=== PATIENT | male | born 1980 | race Caucasian/White ===

== ENCOUNTER 2024-10-02 11:29 | Outpatient (AMB) | payer OTHER, SELFPAY ==
--- NOTE | 2024-10-02 11:37 | A.OFFPC_ITS ---
Vital Signs 10/02/24 11:41 Height 6 ft 1 in Weight 239 lb BMI 31.5 BP 104/68 Blood Pressure Location Rt brachial Pulse 83 Pulse Source Pulse Oximeter Temp 97.3 F Pulse Oximetry (%) 95 Intake Visit Reasons: Fever, productive cough, congestion Intake Note: cough keeps getting worse still has all symptoms Allergies No Known Allergies Allergy (Verified 10/02/24 11:39) Physical exam (Primary Care) Vital Signs: Last Vital Signs Temp 97.3 F 10/02/24 11:41 Pulse 83 10/02/24 11:41 BP 104/68 10/02/24 11:41 Pulse Ox 95 10/02/24 11:41 BMI result Body Mass Index 31.5 Coding Level of Care Code New Pt Level 4 (84081) Complex EM visit Add On G2211 Diagnoses Upper respiratory tract infection J06.9 Assessment & Plan Assessment & Plan (1) Upper respiratory tract infection: Code(s): J06.9 - Acute upper respiratory infection, unspecified Plan: Antibiotics ordered. Increase fluid intake. Tylenol for aches and pains. If symptoms worsen, follow-up here for a recheck. k. Plan History of Present Illness The patient is a 44-year-old male presenting with cough, fever, dizziness, and congestion. He describes over a week of on and off flu-like symptoms that remain unresolved, with significant evening chills and body temperature fluctuations, coupled with breathing difficulties due to congestion. The patient has self-managed his symptoms using Tylenol, Advil, DayQuil, and NyQuil, without symptom abatement. Negative tests for Influenza and COVID-19 were conducted independently. He denies additional medical conditions or urination difficulties and is non-smoking, with no alcohol or substance use history impacting his current condition. The patient?s recent symptoms led to missing workdays, compounded by a family flu incidence involving his children, likely unrelated to his current condition. Social History - Employment: Works for a sports [employer] in [place]. - Family: Two children recently experienced flu; however, no familial illness was discussed. - Substance Use: Denies smoking, alcohol, and drug use. Review of Systems - Respiratory: Reports cough, congestion, and difficulty breathing. - General: Reports fever, chills, and dizziness. - Genitourinary: Denies any problems. Physical Exam General: Appearance normal, both eyes and all related structures Nutritional Appearance: Well nourished Orientation/consciousness: Patient oriented x3 Limitations: No limitations Head: Normal to inspection Neck: Normal visual inspection Chest: Normal palpation of entire chest wall Respiratory: Congested, hard to breathe, wheezing noted Neurology: Patient oriented x3 Results - Tests: Self-reported negative results for Influenza A, Influenza B, and COVID- 19. Plan The management plan for acute bronchitis includes prescribing Azithromycin to address bacterial elements, accompanied by Tylenol to control fevers and an inhaler to reduce wheezing. Recommendations include regular steam inhalation and Sudafed to manage congestion, paired with instructions to rest and hydrate adequately. Patient was informed and verbally consented to the use of an ambient scribe for clinic note documentation during this visit. Discussion Notes I discussed the likely diagnosis of acute bronchitis with the patient, emphasizing the need for antibiotic treatment with Azithromycin due to ongoing respiratory symptoms. I explained the importance of using Tylenol consistently every six hours for fever control, as well as the inhaler's role in easing respiratory strain from bronchial tightening. Non-pharmacological measures, including steam inhalation and the use of Sudafed, were advised to alleviate congestion concerns. The patient was informed of the necessity of rest and hydration to expedite recovery, and we agreed upon the outlined treatment protocol following the detailed discussion of risks and expected progression timelines. Patient Instructions - Take Azithromycin as prescribed. - Use Tylenol every six hours for fever control. - Follow inhaler usage instructions to help with breathing. - Perform regular steam inhalation and take Sudafed. - Ensure ample rest and increase fluid intake. - Contact medical help if symptoms worsen or do not improve. Medications: New albuterol sulfate 90 mcg/actuation 1 inh inhalation QID PRN 6.7 grams 1RF shortness of breath or wheezing azithromycin take 500 mg today (day 1), then 250 mg for 4 days (days 2-5) PO 6 tabs 0RF
[2024-10-02 11:41] VITALS: BP 104/68; PULSE 83; TEMP 36.3; O2SAT 95; BMI 31.5
--- OUTSIDE RECORDS SUMMARY | 2024-10-02 14:25 | XMS_ITS ---
Author Name [facility] Organization Unknown Problems Problem Status Onset Date Problem Type Date of Resoluti on Source Effusion of joint of left knee active 2023-01-23 ProblemAct ENS_AONECT Pain of left knee joint active 2023-01-23 ProblemAct E[facility]
--- OUTSIDE RECORDS SUMMARY | 2024-10-02 14:25 | XMS_ITS | Data Portability ---
Author Organization [place] [facility] [place] Address [address] [place] [address] Care Team Providers Care Assistant Superintendent Name Role Phone [facility] Primary Care Provide r Assessment Encounter Date Assessment Date Assessment LastModified by Organization Details LastModified Time 01/23/2023 01/23/2023 Roman woke with left knee pain without specific injury or trauma. Although he is active, he did not have any injury or trauma. He had no pain prior to waking up. His pain was more related to a tendinitis, but does have a small joint effusion. There is no redness or warmth. No joint line tenderness. Acute gout is in the differential, but somewhat atypical presentation. Ultrasound was used to evaluate the patellar tendon and quadriceps insertion. Joint effusion was noted but no obvious quadriceps rupture. He does have some medial joint space narrowing, but joint line pain did not reproduce typical pain. He was offered a prednisone taper in hopes of reducing inflammation and pain. The risk, benefits potential side effects were reviewed. He was given crutches with weightbearing as tolerated. He will follow-up in 1 week to assess his progress, sooner for any complications. If swelling gets worse, aspiration will be considered. [email or web address] Not available 01/23/2023 10:28:22 01/27/2023 01/27/2023 Roman has made improvement while taking his prednisone. He has made significant overall improvement but still has tightness and some discomfort. He will complete his prednisone taper. Prednisone is actually offering more relief than he thought. If he has recurrent knee effusion, aspiration and corticosteroid injection could be considered in addition to synovial fluid analysis to assess for gout. After discussion, he will follow-up after his trip to [place]. [email or web address] Not available 01/27/2023 16:57:41 Plan of Treatment Reminders Order Date Submit Date Provider Last Modified By Organization Details Last Modified Time Details Appointments None recorded. Lab None recorded. Referral None recorded. Procedures None recorded. Surgeries None recorded. Imaging XR, knee, 3 view 2022 023 [email or web address], [address], [place], [address], 13:16:06 Medication Orders prednisone 10 mg tablet 2022 023 [id number], [address], [place], [address], 10:21:46 Patient TargetsNo targets recorded. Patient Instructions Encounter Date Encounter Id Patient Instructions Last Modified By Organization Details Last Modified Time 01/23/2023 [id number] 3 views of the {{Left* Right}} knee were obtained in the {{[place]* Vinod} } office including AP, lateral (weightbearing), and sunrise were obtained in the [place] office. X-rays demonstrated normal bony mineralization mildly decreased medially. No evidence of acute injury or fracture. Findings: Normal knee x-ray X-ray interpretation by: Leif Selby PA-C [email or web address] Not available 01/23/2023 10:28:05 Reason for Referral None Reported. Problems Name Problem SNOMED Code Status Onset Date Resolution Date Notes Provider Name and Address Organization Details Recorded Time Effusion of joint of left knee 016765465042912 Active [address], [facility], [place], [address], [place] [facility] [place], P 3 10:20:50 Pain of left knee joint 121778748117476 Active [address], [facility], [place], [address], [place] [facility], [facility] 3 10:25:32 Problem Notes None recorded. Medical Equipment None Reported. Allergies No known drug allergies Medications Name Sig Start Date Stop Date Status Note LastModified by Organization Details LastModified Time prednisone 10 mg tablet PLEASE SEE ATTACHED FOR DETAILED DIRECTIONS active Not Available Not Available N ot Available valacyclovir 1 gram tablet TAKE 2 TABLETS BY MOUTH TWICE A DAY FOR 5 DAYS active Not Available Not Available No t Available Vitals Date Recorded Body height Body mass index (BMI) Body weight Provider Name and Address Organization Details Last Updated DateTime 01/23/2023 190.5 cm 30 kg/m2 502951.17 g Kristina Torres [facility] [place], P 01/23/2023 09:31:39 Date Recorded Body height Body mass index (BMI) Body weight Provider Name and Address Organization Details Last Updated DateTime 01/27/2023 190.5 cm 30 kg/m2 064263.17 g Vinod Cirilo [place] - [facility], P 01/27/2023 09:38:30 Social History Question Answer Notes LastModified by Organizat ion Details LastModified Time Tobacco Smoking Status Never Smoker Kristina Torres lisa, [facility] [place], P 01/23/2023 09:31:56 What Is Your Level Of Alcohol Consumption? None [email or web address] Information not available 01/23/2023 Do You Use Any Illicit Or Recreational Drugs? No [email or web address] Information not available 01/23/2023 Do You Or Have You Ever Used Any Other Forms Of Tobacco Or Nicotine? No [email or web address] Information not available 01/23/2023 Sex: Unknown Functional Status None recorded. Mental Status None recorded. Family History Nothing Reported. Medical History No medical history recorded. Past Encounters Encounter ID Performer Location Encounter Start Date Encounter Closed Date Diagnosis/Indication Diagnosis SNOMED-CT Code Diagnosis ICD10 Code Diagnosis Note [id number] MD SAMUEL Wilhelm [facility] [address] [place] [address], [address] [place] [address] 01/23/2023 09:20:22 01/23/2023 10:29:55 Pain of left knee joint 2372320946 01953 M25.562 Effusion o f joint of left knee 4066103514 55248 M25.462 [id number] [facility] [address] [place] [address] 01/27/2023 09:33:53 01/27/2023 10:08:30 Effusion of joint of left knee 2480130374 21967 M25.462 Health Concerns Section Related Observation LastModified by Organization Detai ls LastModified Time None Recorded Concern Status LastModified by Organization Details LastModified Time None Recorded Advance Directives Directive None Recorded Payers Encounter Date Sequence Insurance Name Policy Number Policy Carranza Covered Member ID Carranza Member ID Guarantor Name 01/23/2023 1 [employer] - CHOICE (POS II) [id number] Roman Marina [id number] Roman Marina 01/27/2023 1 [employer] - CHOICE (POS II) [id number] Roman Marina [id number] Roman Marina Notes Date Note Type Note Provider Name and Address Organization Details Recorded Time 01/23/2023 text/html Patient is a 42-year-old male who presents today with acute knee pain. He denies any injury or trauma to cause the onset of his symptoms. He woke on Monday with pain and swelling. Pain was severe and he cannot bend his knee. His knee was swollen. No fever or chills. No redness or warmth. LEIF SELBY PA-C [address], [place], [address], [place] [facility], [facility] 01/23/2023 10:28:47 01/27/2023 text/html Patient has been noting some improvement since his last visit. He is now able to bend his knee since Monday. He is still sore by the end of the day. He is still taking his prednisone. He is leaving for a trip to [place] and will be gone next week. [address], [place], [address], [place] [facility], [facility] 01/27/2023 16:58:05
--- OUTSIDE RECORDS SUMMARY | 2024-10-02 14:25 | XMS_ITS | Data Portability ---
Author Organization [place] - [facility], [facility] Address [address] [place] [address] Care Team Providers Care Screw Supervisor Name Role Phone CHERELLE SALGADO Primary Care Provider CHERELLE SALGADO Referring Provider Assessment Encounter Date Assessment Date Assessment LastModified by Organization Details LastModified Time 11/24/2016 11/24/2016 HPI, ROS and physical assessment completed with plan as indicated below. [email or web address] Not available 11/24/2016 11:16:10 Plan of Treatment Reminders Order Date Submit Date Provider Last Modified By Organization Details Last Modified Time Details Appointments None recorded. Lab TSH, serum or plasma 2016 017 [email or web address] [facility], [address] [place], [address], 7 10:41:37 CMP, serum or plasma 2016 017 [facility], [address] [place], [address], 7 10:41:37 CBC 2016 017 [email or web address] [facility], [address] [place], [address], 7 10:41:37 urinalysis , complete 2016 017 RUY [facility], [address], [place], [address], 7 08:27:53 Referral None recorded. Procedures None recorded. Surgeries None recorded. Imaging electrocar diogram 2015 016 In-Office Order, Internal Use Only DO Not Attach Compendium DO Not Attach Compendium, Do Not Delete/merge, [id number] 6 12:11:18 Medication Orders Ativan 1 mg tablet 2016 017 [id number], [address] [place], [address], 7 08:59:34 citalopram 10 mg tablet 2016 017 [id number], [address] [place], [address], 7 08:27:37 Ativan 1 mg tablet 2015 016 [id number], [address] [place], [address], 6 12:53:04 ergocalcif wei (vitamin D2) 1,250 mcg (50,000 unit) capsule 2015 016 [id number], [address] [place], [address], 7 13:18:44 Patient TargetsNo targets recorded. Patient Instructions Encounter Date Encounter Id Patient Instructions Last Modified By Organization Details Last Modified Time 10/19/2015 [id number] he is quite healthy will get regular exercise, rx for Vit D. recheck prn or 6 months Not available 10/19/2015 10:42:17 02/16/2016 [id number] initial EKG albeit incomplete has no definitive anginal evidence will repeat EKG to see if anything else presents itself, sinus rhythm with normal BP 130/80. Pt would benefit from further cardiac interrogation. Second EKG was complete and had no further adnl findings. Only V1 T wave inversion. no ST T wave abnl. will renew the Ativan and see him after cardiac assessment. Not available 02/16/2016 10:35:44 11/24/2016 [id number] anxiety disorder : care instructions RUY Not available 11/26/2016 08:59:17 Patient understands instructions and will seek medical attention if symptoms worsen as directed. [email or web address] Not available 11/24/2016 11:15:50 Reason for Referral None Reported. Results Created Date Observation Date Name Description Value Unit Range Abnormal Flag Note LastModifiedBy Organization Detail LastModifiedTime 02/16/20 16 elect rocar diogr am No observ ation record ed. Not Available 2015 10:19:10 02/16/20 16 elect rocar diogr am No observ ation record ed. Not Available 2015 10:35:44 Result Notes None recorded. Problems Name Problem SNOMED Code Status Onset Date Resolution Date Notes Provider Name and Address Organization Details Recorded Time Anxiety disorder 173282979 Active EDIE Ferrell [address], [place], [address] , [facility], [facility] 6 10:35:43 Generalized anxiety disorder 96925278 Active 2016 YANCI Dueñas [address], [place], [address] , [facility], [facility] 7 08:19:50 Problem Notes None recorded. Procedures Surgical History None recorded. Imaging Results Imaging Date Name Status LastModified by Organization Details LastModified Time 02/16/2016 electrocardiogram completed Informa tion not available 02/16/2016 10:19:10 02/16/2016 electrocardiogram completed Informa tion not available 02/16/2016 10:35:44 Procedure Notes None recorded. Medical Equipment None Reported. Allergies Allergen ID Allergen Name Allergen Category Reaction Reaction Severity Criticality Documentation Date Start Date Code Code System Note Provider Name and Address Organization Details Recorded Time 650556 Substance with sulfonami de structure and antibacte rial mechanism of action (substanc e) medicatio n rash moderate Not available 10/19/2015 [id number] SNOMED Olga Bagley [facility], [facility] 6 10:07:08 Medications Name Sig Start Date Stop Date Status Note LastModified by Organization Details LastModified Time citalopram 10 mg tablet Take 1 tablet every day by oral route. 2016 active Not Available Not Available Not Avai lable Ativan 1 mg tablet Take 1 tablet every day by oral route. 2016 active Not Available Not Available Not Avai lable ergocalcifer ol (vitamin D2) 1,250 mcg (50,000 unit) capsule Take 1 capsule every week by oral route. 11/22 completed Not Available Not Available Not Available Vitals Date Recorded Body height Respiratory rate Body weight Body mass index (BMI) Heart rate Systolic blood pressure Diastolic blood pressure Provider Name and Address Organization Details Last Updated DateTime 6 190.5 cm 16 /min 818165. 2451 g 28.7 kg/m2 60 /min 104 mm[Hg] 60 mm[Hg] Olga Bagley [facility], [facility] 6 10:10:08 Date Recorded Respiratory rate Body height Heart rate Body weight Body mass index (BMI) Systolic blood pressure Diastolic blood pressure Provider Name and Address Organization Details Last Updated DateTime 6 16 /min 190.5 cm 76 /min 837751. 88492 g 28.4 kg/m2 122 mm[Hg] 78 mm[Hg] Olga Bagley [facility], [facility] 6 10:43:34 Date Recorded Body mass index (BMI) Heart rate Body height Body temperature Respiratory rate Oxygen saturation Oxygen saturation in Arterial blood by Pulse oximetry Body weight Systolic blood pressure Diastolic blood pressure Provider Name and Address Organization Details Last Updated DateTime 6 28.2 kg/m2 66 /min 190.5 cm 97.4 [degF] 20 /min 97 % 97 % 868305. 60705 g 130 mm[Hg] 80 mm[Hg] Alanis Cary [facility], [facility] 6 09:56:42 Date Recorded Body height Respiratory rate Body weight Body mass index (BMI) Heart rate Systolic blood pressure Diastolic blood pressure Provider Name and Address Organization Details Last Updated DateTime 7 190.5 cm 16 /min 998340. 51 g 27.7 kg/m2 76 /min 108 mm[Hg] 82 mm[Hg] Olga Kevyn [facility], [facility] 7 13:18:18 Date Recorded Body height Body weight Body mass index (BMI) Heart rate Respiratory rate Oxygen saturation Oxygen saturation in Arterial blood by Pulse oximetry Systolic blood pressure Diastolic blood pressure Provider Name and Address Organization Details Last Updated DateTime 7 190.5 cm 026010. 22 g 27.8 kg/m2 70 /min 16 /min 97 % 97 % 134 mm[Hg] 80 mm[Hg] Yasmin Campoverde [facility], [facility] 7 08:12:08 Social History Question Answer Notes LastModified by Organizat ion Details LastModified Time Tobacco Smoking Status Never Smoker Olga gonzalez [facility], [facility] 10/19/2015 10:07:07 Do You Have An Advance Directive? No [email or web address] Information not available 02/16/2016 What Is Your Level Of Alcohol Consumption? Moderate Information not available 11/24/2016 How Much Tobacco Do You Chew? None [email or web address] Information not available 11/24/2016 Which Illicit Or Recreational Drugs Have You Used? N/a Information not available 11/24/2016 Education 12 Information no t available 11/24/2016 What Is Your Occupation? [employer] Information not available 11/24/2016 Marital Status [email or web address] Informati on not available 02/16/2016 How Much Tobacco Do You Smoke? No Information not available 11/24/2016 Sex: Unknown Functional Status Question Answer Note LastModified by Organization D etails LastModified Time What is your exercise level? Moderate [email or web address] Information not available 02/16/2016 Mental Status None recorded. Family History Relationship Description Onset Age of this Age Resolved Age Notes LastModified by Organization Details LastModified Time Father No current problems or disability [email or web address] Not available 11/06 08:13:27 Mother No current problems or disability [email or web address] Not available 11/06 08:13:27 Notes:none Medical History Condition Response Cancer (location) N Other N Gout N Thyroid Disease N Kidney Stones N Measles/Mumps N Emphysema/COPD N Sexually Transmitted Disease N Depression N Prostate Problems N Vascular Disease N Rash/Skin Condition N Amputation (location) N Parkinson's N Paralysis N Headaches/Migraines N Cardiac Pacemaker/defibrillator N Nerve Damage / Neuropathy N Arthritis N Sleep disorder/Insomnia N Heart disease / Heart Attack N Crohn's Disease N HIV/AIDS N Stroke/TIA N Colon Problems N High Cholesterol N Serious Injuries N Kidney Disease N Memory Loss/Alzheimer's N Gallbladder disease N High blood pressure N Congestive heart failure N Falls N Alcohol Overuse N Blood Thinner Treatment N Hormone Replacement N Nervous Breakdown N Dumont's Esophagus N Anemia N Urinary Problems N Colon Polyps N Gastritis N Hospitalizations (other than operations) N Back pain N Diabetes N Rheumatic Fever N Bleeding Disorder N Cardiac Arrhythmias /irregular heart rat e N Osteopenia/Osteoporosis N Anxiety/Stress N Asthma N Vision Problems N Erectile / Sexual Dysfunction N Ostomies (location) N Seizures N Jaundice N Sleep Apnea N Hepatitis N Cirrhosis N GERD/Ulcer N Chicken Pox N Allergies (other than meds) N Past Encounters Encounter ID Performer Location Encounter Start Date Encounter Closed Date Diagnosis/Indication Diagnosis SNOMED-CT Code Diagnosis ICD10 Code Diagnosis Note [id number] EDIE Ferrell [employer] [place] [address] [place] [address] 10/19/2015 09:48:03 10/19/2015 10:47:13 Vitamin D deficiency 92244497 E55.9 he prefers I go an rx for the Vit Dl Hyperlipidemia 41578455 E78.5 will adhere to a low fat diet this year and recheck in a year. [id number] [facility] [address] [place] [address] 11/17/2015 10:34:28 11/17/2015 11:25:51 Anxiety disorder 663747624 F41.9 pt has medication at home which addresses problem [id number] EDIE Ferrell [place] [address] [place] [address] 02/16/2016 09:42:14 02/16/2016 10:45:23 Chest pain 42347478 R07.9 Anxiety disorder 0558690 06 F41.9 it is possible he is having anxiety. [id number] YANCI Dueñas [facility] [place] [address] [place] [address] 11/24/2016 08:07:32 11/24/2016 08:48:39 Generalized anxiety disorder 55934348 F41.1 Patient here today for ongoing treatment of anxiety. Was originally identified with anxiety in February and prescribed ativan for which the patient states taking a couple of times per month. PHQ 9 score is 10 indicating moderate depressive symptoms. Discussed finding with patient and options for treatments . Explained SSRIs as an optimal treatment for anxiety/de pression with the goal of discontinu ing usp use of ativan once optimal therapy reached. Citalopram to start at 10 mg with follow up in two weeks and possible titration. Patient informed of initial possible side effects and the 6 to 8 week course required to reach optimal therapy. Will discuss the possibilit y of a behavioral referral at follow up. Labs ordered as indicated for evaluation and baseline. Health Concerns Section Related Observation LastModified by Organization Detai ls LastModified Time None Recorded Concern Status LastModified by Organization Details LastModified Time None Recorded Advance Directives Directive N: Payers Encounter Date Sequence Insurance Name Policy Number Policy Carranza Covered Member ID Carranza Member ID Guarantor Name 10/19/2015 1 [employer] - CHO[employer]US [id number] Chaseer Jordy Salas [id number] [facility] 11/17/2015 1 [employer] - CHOICE PLUS [id number] Ciprianoopher J Salas [id number] Christopher Salas 02/16/2016 1 [employer] CHO[employer]US [id number] Chaseer J Salas [id number] Christopher Salas 11/24/2016 1 [employer] CHO[employer]US [id number] Chaseer Jordy Salas [id number] Roman Godinezo Notes Date Note Type Note Provider Name and Address Organization Details Recorded Time 10/19/2015 text/html pt is here for review of labs, he has low Vit D and mildly elevated lipids, he is healthy vitals as noted are normal EDIE Ferrell [address], [place], [address], [facility], [facility] 10/19/2015 10:42:50 11/17/2015 text/html AnxietyReported bypatient.Reason for visit:exacerbation of chronic complaint Anxiety Type:episodic anxiety Quality:nervous;agit ated Severity:moderate 5/10 Onset/Timing:abrupt; 3 years ago Context:major life stressors;trouble at work Alleviating factors:medication Associated Symptoms:denies suicidal ideations;sleep disturbances [facility] 11/17/2015 11:21:42 02/16/2016 text/html Chest PainReport ed bypatient.Reason for visit:acute complaint Location:left arm Onset/Timin days ago Context:at rest;occurs with emotional stress Aggravating Factors:worse with stress/emotional upset Associated Symptoms:dizzinessNo maria a:EKG normal pt is here for C.P. first EKG lack 3 precordial leads, pt seems to be tolerating the delay well, seems anxious on presentation but pleasant and cooperative. V1 T wave is inverted. pt states his last PCP treated him with Ativan 1 mg, has been having stress anxiety problem for 3 yrs. He would like to see belt polisher. EDIE Ferrell [address], [place], [address], [facility], [facility] 02/16/2016 10:36:04 11/24/2016 text/html AnxietyReported bypatient.Reason for visit:exacerbation of chronic complaint Anxiety Type:generalized anxiety disorder; Symptoms have been ongoing greater than 6 months Quality:nervous;pent up;agitated;poor concentration Severity:moderate 5/10 Duration:intermitten t Onset/Timing:gradual ;7 months ago Context:major life stressors;trouble at work;relationship stress Alleviating factors:Ativan Aggravating factors:stress;work Associated Symptoms:denies suicidal ideations; no significant weight change; no shortness of breath; energy good; maintaining functionality;high irritability;depress ion Patient here today for ongoing treatment of anxiety. Was originally identified with anxiety in February and prescribed ativan for which the patient states taking a couple of times per month. States some increased feeling of anxiety over the last few months with both personal and work related factors for which he does not elaborate on with coaching. PHQ 9 score 10 and patient acknowledges often feeling down with some loss of interest in normal activities. YANCI Dueñas [address], [place], [address], [facility] - [facility] 11/24/2016 11:19:25
== END 2024-10-02 11:53 | disposition home or self-care (01) ==
LOC: HO.HMCSH 11:30
PROVIDERS: PCP Internal Medicine; Visit Provider Internal Medicine
DX: J06.9 Acute upper respiratory infection, unspecified (principal)

== ENCOUNTER 2024-11-27 10:00 | Outpatient (AMB) | payer OTHER, SELFPAY ==
[2024-11-27 10:05] VITALS: BP 140/90; PULSE 90; RESP 16; TEMP 36.4; O2SAT 99; BMI 30.7
--- NOTE | 2024-11-27 10:05 | A.OFFPC_ITS ---
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 Accompanied by: Self / Same As Patient Allergies No Known Allergies Allergy (Verified 11/27/24 10:26) Medication List - Last Reconciled 11/27/24 by Anette Crowe PA-C albuterol sulfate 90 mcg/actuation 1 inh inhalation QID PRN Tobacco use date assessed: 11/27/24 Dental Screening Dental Screen Date: 11/27/24 Did you have a dental visit in the last 12 months?: Yes Did you have a dental problem in the last 6 months where you did not have access to dental care?: No Was dental information given to patient?: Patient has dentist HPI hand tremors and numbness HPI Details The patient is a 44 year old male presenting with tremors, dizziness, jaundice, and chest muscle spasms. Over the past 10 to 14 days, he has experienced constant tremors and dizziness, often exacerbated by changing positions, notably transitioning to standing or exiting the shower, when weakness in the legs occurs. He also reports numbness affecting his extremities. The patient describes persistent spasmodic pain located in the chest, suggesting a muscular origin, and notes recent yellowing of his eyes for the past two weeks. The patient admits to periodic coughing episodes in the recent days, which induce a gag reflex, but he denies any mucus production. He has traveled recentl y for work to [place], where his symptoms persisted. It's noteworthy that the patient consumes alcohol regularly, correlating with a frequency of one to two drinks per day, which might contribute to his present symptomatology. Social history - Alcohol Consumption: The patient repor ts drinking one to two alcoholic drinks daily. - Living Situation: The patient lives al one. [facility] Medical History (Updated 11/27/24 @ 10:52 by Anette Crowe PA-C) Establishing care with new doctor, encounter for Occasional tremors Chest wall pain Scleral icterus Dizziness Family History Father No problems noted. Mother No problems noted. Social History Housing: Apartment Alcohol intake: current Alcohol intake frequency: 0-2 drinks per day Alcohol type: hard liquor Patient Tobacco Use Status: Never used Tobacco service: No Current occupational status: employed Cognitive needs: No Hearing needs: No Vision needs: No Questionnaire PHQ-9 Over the last 2 weeks, how often have you been bothered by any of the following problems? 1. Little interest or pleasure in doing things: not at all 2. Feeling down, depressed, or hopeless: not at all 3. Trouble falling or staying asleep, or sleeping too much: not at all 4. Feeling tired or having little energy: not at all 5. Poor appetite or overeating: not at all 6. Feeling bad about yourself - or that you are a failure or have let yourself or your family down: not at all 7. Trouble concentrating on things, such as reading the newspaper or watching television: not at all 8. Moving or speaking so slowly that other people could have noticed. Or the opposite - being so fidgety or restless that you have been moving around a lot more than usual: not at all 9. Thoughts that you would be better off or of hurting yourself in some way: not at all Total score: 0 Depression Screening Interpretation: Negative Depression Screening Done: Yes 57466 - PHQ-9 Billing: Yes Source: Developed by Drs. Darien Smith, Danisha Mandujano, Willi Cheema and colleagues, with an educational jessica from [employer]. Thrive Questionnaire Date Thrive assessed: 11/27/24 I am a: Patient What is your living situation today?: I have a steady place to live Within the past 12 months, did the food you bought not last and you didn't have the money to get more?: Never true Within the past 12 months, did you worry whether your food would run out before you got money to buy more?: Never true Do you have trouble paying for medicines?: No Do you have trouble getting transportation to medical appointments?: No Do you have trouble paying your heating and electricity bill?: No Do you have trouble taking care of your child, family member or friend?: No Do you have trouble with day-to-day activities such as bathing, preparing meals, shopping, managing finances, etc.?: No Are you currently unemployed and looking for a job?: No Are you interested in more education?: No Please select the resources that you would like help with: None THRIVE Score: 0 AUDIT C Alcohol Use Questionnaire (AUDIT-C) 1. How often do you have a drink containing alcohol?: 4 or more times a week 2. How many drinks containing alcohol do you have on a typical day when you are drinking?: 1 or 2 3. How often do you have six or more drinks on one occasion?: Never Total Score: 4 Score Reviewed/Action Taken: Yes CARIN-7 AMB Questionnaire CARIN-7 Date CARIN - 7 assessed: 11/27/24 Feeling nervous, anxious, or on edge: 0 = Not at all Not being able to stop or control worryin = Not at all Worrying too much about different things: 0 = Not at all Trouble relaxin = Not at all Being so restless that it is hard to sit still: 0 = Not at all Becoming easily annoyed or irritable: 0 = Not at all Feeling afraid as if something awful might happen: 0 = Not at all Total CARIN-7 score (0-4 normal; 5-9 mild; 10-14 moderate; 15-21 severe): 0 Source: Developed by Drs. Darien Smith, Danisha Mandujano, Willi Cheema and colleagues, with an educational jessica from [employer]. CARIN-7 Assessment Billing CARIN-7 Assessment Tool: CARIN-7 Assessment 41711 Review of Systems Const Details: - Neurological: Reports constant tremors, dizziness, and numbness of fingers and toes. - Eyes: Reports yellowing of the eyes. - Respiratory: Reports coughing without sputum production. - Musculoskeletal: Reports muscle spasms in the chest. - Gastrointestinal: Denies belly pain. - Integumentary: Reports redness on the top of the chest. Physical exam (Primary Care) Vital Signs: Last Vital Signs Temp 97.5 F 11/27/24 10:05 Pulse 90 11/27/24 10:05 Resp 16 11/27/24 10:05 BP 140/90 H 11/27/24 10:05 Pulse Ox 99 11/27/24 10:05 Oxygen Delivery Method Room Air 11/27/24 10:05 Care Plan Goal for BP management: 130/90 BMI result Body Mass Index 30.7 BMI Assessment/Plan discussion: High BMI High, discussed plan: lifestyle, weight reduction, dietary, physical activity and alcohol moderation Tobacco/Smoking Status: Tobacco use Status Tobacco use date assessed 11/27/24 11/27/24 10:09 Patient Tobacco Use Status Never used Tobacco 11/27/24 10:17 PHQ-9: PHQ-9 Score PHQ-9: Total score 0 11/27/24 10:09 Depression Screening Interpretation: Negative Thrive Assessment: Date of Thrive Assessment Date Thrive assessed 11/27/24 11/27/24 10:09 Const Other: Appearance: Alert. Oriented X3. No acute distress. Head: Normal external exam. Normocephalic. Atraumatic. Eyes: Pupils are equal, round, and reactive to light. Extraocular movements intact. Scleral icterus noted. Eyelids normal. Ears: External auditory canal normal. Tympanic membranes normal. Throat: Pharynx normal. Uvula midline. Moist mucous membranes. Neck: Normal inspection. Neck supple. Full range of motion. No adenopathy. Thyroid Normal. No meningeal signs. No neck mass noted. Cardiovascular: Normal heart rate and rhythm. Heart sound normal. No murmurs noted. Pulses normal throughout. Blood pressure is high. Respiratory: No respiratory distress. Painless inspiration. Breath sounds normal. No wheezes/rales/rhonchi noted. Chest nontender. No accessory muscle usage noted or decreased air movement noted. Patient reports coughing periodically. Abdomen: Soft and nontender. Bowel sounds normal in all 4 quadrants. No distention noted. No organomegaly noted. No visible injury noted. Back: No costovertebral angle tenderness. Full range of motion noted. Skin: Skin warm and dry. Normal skin color. Normal skin turgor. No rashes/lesions/lacerations noted. Top of chest is a little red. Extremities: No lower extremity edema. Extremities exhibit normal range of motion. Extremities nontender. Neuro: Oriented X 3. No motor deficit. No sensory deficit. Reflexes normal. Patient reports constant tremors, numbness in fingers and toes, and dizziness. Office Procedures EKG Details: EKG normal sinus rhythm with a ventricular rate of 100 beats per minute with nonspecific ST abnormalities no acute ischemic change are noted. [id number], Complete Coding Level of Care Code Est Pt Level 4 (55666) Complex EM visit Add On G2211 Diagnoses Dizziness R42 Scleral icterus R17 Chest wall pain R07.89 Occasional tremors R25.1 Establishing care with new doctor, encounter for Z76.89 CPT Codes EKG - CPT: 97273-[id number], Complete ([id number]) Additional Codes PHQ-9 - 56928 - PHQ-9 Billing: Yes ([id number]) CARIN-7 Assessment Billing - CARIN-7 Assessment Tool: CARIN-7 Assessment 96481 ([id number]) Assessment & Plan Assessment & Plan (1) Dizziness: Code(s): R42 - Dizziness and giddiness Category: Medical (2) Scleral icterus: Code(s): R17 - Unspecified jaundice Category: Medical (3) Chest wall pain: Code(s): R07.89 - Other chest pain Category: Medical (4) Occasional tremors: Code(s): R25.1 - Tremor, unspecified Category: Medical (5) Establishing care with new doctor, encounter for: Code(s): Z76.89 - Persons encountering health services in other specified circumstances Category: Medical Plan Plan Patient was informed and verbally consented to the use of an ambient scribe for clinic note documentation during this visit. 1. Upper Respiratory Infection The patient has an upper respiratory infection as demonstrated by the recent cough episodes. I recommend supportive care while prioritizing assessment of his concomitant symptoms. 2. Tremors The patient's tremors may relate to his alcohol use. It is necessary to evaluate his electrolytes and consider potential alcohol withdrawal risks, necessitating his expedited referral to the emergency department. 3. Dizziness Dizziness could stem from electrolyte imbalances or withdrawal; a comprehensive evaluation in an emergency setting is warranted, including liver function testing. 4. Jaundice Observations of jaundiced eyes suggest hepatic concern, necessitating a detailed hepatic assessment at the emergency department, considering potential chronic alcohol implications. 5. Chest Muscle Spasms Consider muscle spasms possibility as either related to coughing from the upper respiratory infection or a potential imbalance, requiring a thorough evaluation within the context of presenting symptoms. I discussed with the patient the need for immediate evaluation in the emergency department to address his constellation of symptoms, especially emphasizing the signs of jaundice and tremors, and the potential implications of chronic alcohol use. We reviewed the likely necessity for numerous diagnostic tests, including liver function tests, EKG, and possible imaging, to identify any severe underlying conditions. I advised him on the risks associated with potential alcohol withdrawal and the need for detoxification. I suggested an urgency for expedited care to mitigate potential complications, detailed the risks and outcomes of ignoring these symptoms, and the benefit of immediate medical intervention. Patient would like to go by private car refused ambulance. Patient understands the risks of not taking an ambulance. I discussed this case with MOHAN Cantor emergency department PA Orders: Orders Complete Blood Count Auto Diff Today Z00.00 - Encounter for general adult medical examination without abnormal findings Lipid Panel Today Z00.00 - Encounter for general adult medical examination without abnormal findings Liver Panel Today Z00.00 - Encounter for general adult medical examination without abnormal findings PSA,Total (Free>4and<10) Today Z. - Encounter for general adult medical examination without abnormal findings Vitamin B1 Today Z.00 - Encounter for general adult medical examination without abnormal findings Comprehensive [place]. Panel Fast Today Z. - Encounter for general adult medical examination without abnormal findings Erythrocyte Sedimentation Rate Today Z.00 - Encounter for general adult medical examination without abnormal findings C Reactive Protein Today Z00.00 - Encounter for general adult medical examination without abnormal findings Hemoglobin A1c Today Z00.00 - Encounter for general adult medical examination without abnormal findings Magnesium Today Z00.00 - Encounter for general adult medical examination without abnormal findings Vitamin A Today Z00.00 - Encounter for general adult medical examination without abnormal findings TSH reflex Free T4 Today Z00.00 - Encounter for general adult medical examination without abnormal findings Vitamin B12 and Folate Today Z00.00 - Encounter for general adult medical examination without abnormal findings Vitamin D 25-OH Total Today Z00.00 - Encounter for general adult medical examination without abnormal findings Zinc Today Z00.00 - Encounter for general adult medical examination without abnormal findings AMB EKG-In Office Today R42 - Dizziness and giddiness Patient Instructions: - Go directly to the emergency room today for immediate evaluation. - If you feel like you are going to pass out, insole tack puller hand or call for emergency help. - Follow up with our office after your ER visit for further coordination of care. - Stop consuming alcohol and consider discussing detoxification with ER staff.
--- OUTSIDE RECORDS SUMMARY | 2024-11-27 11:26 | XMS_ITS | Encounter Summary ---
Author Organization [facility] Address [address] [place] [address] Care Team Providers Care Real Estate Lawyer Name Role Phone Jeri Lam MD Primary Care Provider Unavail able Rudolph Barrett Primary Care Provider [phone] Ceferino Ross MD Primary Care Provider Encounter Details Date Type Department Care Team Description 02/27/2019 Research & Analytics Manager Report Medical Records [address] [place] [id number] Judit Arteaga NP Social History Tobacco Use Types Packs/Day Years Used Date Smoking Tobacco: Never Smokeless Tobacco: Never Alcohol Use Standard Drinks/Week Comments No 0 (1 standard drink = 0.6 oz pur e alcohol) Sex Assigned at Date Recorded Not on file Job Start Date Occupation Industry Not on file Not on file Not on file documented as of this encounter Plan of Treatment Not on file documented as of this encounter Visit Diagnoses Not on filedocumented in this encounter Care Teams Real Estate Lawyer Relationship Specialty Start Date End Date Jeri Lam MD PCP - General Internal Medicine 09/04/18 12/07/21 Rudolph Barrett [address] [place] [address] [id number] PCP - General Internal Medicine 12/08/21 05/04/22 Ceferino Ross MD [address] [place] [address] [id number] PCP - General Internal Medicine 05/05/22 documented as of this encounter
--- OUTSIDE RECORDS SUMMARY | 2024-11-27 11:26 | XMS_ITS | Data Portability ---
Author Organization [place] [facility] Avalos [facility] [place] Address [address] [place] [address] Care Team Providers Care Land Sales Agent Name Role Phone [facility] Primary Care Provide r Assessment Encounter [...] swelling gets worse, aspiration will be considered. [email or web address] Not available 01/23/2023 10:28:22 01/27/2023 01/27/2023 Roman [...] he will follow-up after his trip to [place]. [email or web address] Not available 01/27/2023 16:57:41 Plan of Treatment Reminders Order Date Submit Date Provider Last Modified By Organization Details Last Modified Time Details Appointments None recorded. Lab None recorded. Referral None recorded. Procedures None recorded. Surgeries None recorded. Imaging XR, knee, 3 view 2022 023 [email or web address] [facility], [address], [place], [address], 13:16:06 Medication Orders prednisone 10 mg tablet 2022 023 [id number], [address], [place], [address], 10:21:46 Patient TargetsNo targets recorded. Patient Instructions Encounter Date Encounter Id Patient Instructions Last Modified By Organization Details Last Modified Time 01/23/2023 [id number] views of the {{Left* Right}} knee were obtained in the {{[place]* Vinod} } office including AP, lateral (weightbearing), and sunrise were obtained in the [place] office. X-rays demonstrated normal bony mineralization mildly decreased medially. No evidence of acute injury or fracture. Findings: Normal knee x-ray X-ray interpretation by: Leif Selby PA-C [email or web address] Not available 01/23/2023 10:28:05 Reason for Referral None Reported. Problems Name Problem SNOMED Code Status Onset Date Resolution Date Notes Provider Name and Address Organization Details Recorded Time Effusion of joint of left knee 116811852886806 Active [address], [place], [address], [place] [facility], [facility] 3 10:20:50 Pain of left knee joint 486471995651403 Active [address], [place], [address], [place] [facility] 3 10:25:32 Problem Notes None recorded. [...] Updated DateTime 01/23/2023 190.5 cm 30 kg/m2 021024.17 g Kristina Torres [facility] 01/23/2023 09:31:39 Date Recorded Body height Body mass index (BMI) Body weight Provider Name and Address Organization Details Last Updated DateTime 01/27/2023 190.5 cm 30 kg/m2 286789.17 g Vinod Cirilo [place] [facility], P 01/27/2023 09:38:30 Social History Question Answer Notes LastModified by Organizat ion Details LastModified Time Tobacco Smoking Status Never Smoker Kristina Torres lisa, [facility], P 01/23/2023 09:31:56 What Is Your Level Of Alcohol Consumption? None [email or web address] Information not available 01/23/2023 Do You Use Any Illicit Or Recreational Drugs? No [email or web address] Information not available 01/23/2023 Do You Or Have You Ever Used Any Other Forms Of Tobacco Or Nicotine? No [email or web address] Information not available 01/23/2023 Sex: Unknown Functional Status None recorded. Mental Status None recorded. Family History Nothing Reported. Medical History No medical history recorded. Past Encounters Encounter ID Performer Location Encounter Start Date Encounter Closed Date Diagnosis/Indication Diagnosis SNOMED-CT Code Diagnosis ICD10 Code Diagnosis Note [id number] MD SAMUEL Wilhelm [facility] [address] [place] [address], [address] [place] [address] 01/23/2023 09:20:22 01/23/2023 10:29:55 Pain of left knee joint 7509152247 56803 M25.562 Effusion o f joint of left knee 2056149362 06946 M25.462 [id number] [facility] [address] [facility] [address] [place] [address] 01/27/2023 09:33:53 01/27/2023 10:08:30 Effusion of joint of left knee 0008663031 98733 M25.462 Health Concerns Section Related Observation LastModified by Organization Detai ls LastModified Time None Recorded Concern Status LastModified by Organization Details LastModified Time None Recorded Advance Directives Directive None Recorded Payers Encounter Date Sequence Insurance Name Policy Number Policy Carranza Covered Member ID Carranza Member ID Guarantor Name 01/23/2023 1 [employer] - CHOICE (POS II) [id number] Roman Marina [id number] Roman Marina 01/27/2023 1 [employer] - CHOICE (POS II) [id number] Roman Marina [id number] Roman Marina Notes Date Note Type [...] LEIF SELBY PA-C [address], [place], [address], [place] [facility] 01/23/2023 10:28:47 01/27/2023 text/html Patient has been noting some improvement since his last visit. He is now able to bend his knee since Monday. He is still sore by the end of the day. He is still taking his prednisone. He is leaving for a trip to [place] and will be gone next week. [address], [place], [address], [place] [facility] 01/27/2023 16:58:05
--- OUTSIDE RECORDS SUMMARY | 2024-11-27 11:26 | XMS_ITS | Data Portability ---
Author Organization [place] [facility], [facility] Address [address] [place] [address] Care Team Providers Care Manager Six Sigma Name Role Phone CHERELLE SALGADO Primary Care Provider CHERELLE SALGADO Referring Provider Assessment Encounter Date Assessment Date Assessment LastModified by Organization Details LastModified Time 11/24/2016 11/24/2016 HPI, ROS and physical assessment completed with plan as indicated below. [email or web address] Not available 11/24/2016 11:16:10 Plan of Treatment Reminders Order Date Submit Date Provider Last Modified By Organization Details Last Modified Time Details Appointments None recorded. Lab TSH, serum or plasma 2016 017 [facility], [address] [place], [address], 7 10:41:37 CMP, serum or plasma 2016 017 [facility], [address] [place], [address], 7 10:41:37 CBC 2016 017 [facility], [address] [place], [address], 7 10:41:37 urinalysis , complete 2016 017 [facility], [address], [place], [address], 7 08:27:53 Referral None recorded. Procedures None recorded. Surgeries None recorded. Imaging electrocar diogram 2015 016 In-Office Order, Internal Use Only DO Not Attach Compendium DO Not Attach Compendium, Do Not Delete/merge, [address] 6 12:11:18 Medication Orders Ativan 1 mg tablet 2016 017 [facility] #[id number], [address] [place], [address], 7 08:59:34 citalopram 10 mg tablet 2016 017 [id number], [address] [place], [address], 7 08:27:37 Ativan 1 mg tablet 2015 016 [facility] #[id number], [address] [place], [address], 6 12:53:04 ergocalcif wei (vitamin D2) 1,250 mcg (50,000 unit) capsule 2015 016 [facility] #5859, [address] [place], [address], 7 13:18:44 Patient TargetsNo targets recorded. Patient Instructions Encounter Date Encounter Id Patient Instructions Last Modified By Organization Details Last Modified Time 10/19/2015 [id number] he is quite healthy will get regular exercise, rx for Vit D. recheck prn or 6 months Not available 10/19/2015 10:42:17 02/16/2016 [id number] initial EKG albeit incomplete has no definitive [...] cardiac assessment. Not available 02/16/2016 10:35:44 11/24/2016 [id number] anxiety disorder : care instructions RUY Not available 11/26/2016 08:59:17 Patient understands instructions and will seek medical attention if symptoms worsen as directed. [email or web address] Not available 11/24/2016 11:15:50 Reason for Referral [...] Address Organization Details Recorded Time Anxiety disorder 679093961 Active EDIE Ferrell [address], [place], [address] , [facility], [facility] 6 10:35:43 Generalized anxiety disorder 86520159 Active 2016 YANCI Dueñas [address], [place], [address] , [facility], [facility] 7 08:19:50 Problem Notes None [...] Name and Address Organization Details Recorded Time 014055 Substance with sulfonami de structure and antibacte rial mechanism of action (substanc e) medicatio n rash moderate Not available 10/19/2015 66500 8003 SNOMED Olga Bagley [facility], [facility] 6 10:07:08 Medications Name Sig [...] Updated DateTime 6 190.5 cm 16 /min 878596. 2451 g 28.7 kg/m2 60 /min 104 mm[Hg] 60 mm[Hg] Olga Bagley [facility], [facility] 6 10:10:08 Date Recorded Respiratory rate Body height Heart rate Body weight Body mass index (BMI) Systolic blood pressure Diastolic blood pressure Provider Name and Address Organization Details Last Updated DateTime 6 16 /min 190.5 cm 76 /min 907390. 72583 g 28.4 kg/m2 122 mm[Hg] 78 mm[Hg] Olga Bagley [facility], [facility] 6 10:43:34 Date Recorded Body mass index (BMI) Heart rate Body height Body temperature Respiratory rate Oxygen saturation Oxygen saturation in Arterial blood by Pulse oximetry Body weight Systolic blood pressure Diastolic blood pressure Provider Name and Address Organization Details Last Updated DateTime 6 28.2 kg/m2 66 /min 190.5 cm 97.4 [degF] 20 /min 97 % 97 % 754733. 29457 g 130 mm[Hg] 80 mm[Hg] Alanis Cary [facility], [facility] 6 09:56:42 Date Recorded Body height Respiratory rate Body weight Body mass index (BMI) Heart rate Systolic blood pressure Diastolic blood pressure Provider Name and Address Organization Details Last Updated DateTime 7 190.5 cm 16 /min 111001. 51 g 27.7 kg/m2 76 /min 108 mm[Hg] 82 mm[Hg] Olga Kevyn [facility], [facility] 7 13:18:18 Date Recorded Body height Body weight Body mass index (BMI) Heart rate Respiratory rate Oxygen saturation Oxygen saturation in Arterial blood by Pulse oximetry Systolic blood pressure Diastolic blood pressure Provider Name and Address Organization Details Last Updated DateTime 7 190.5 cm 111201. 22 g 27.8 kg/m2 70 /min 16 /min 97 % 97 % 134 mm[Hg] 80 mm[Hg] Yasmin Campoverde [facility], [facility] 7 08:12:08 Social History Question Answer Notes LastModified by Organizat ion Details LastModified Time Tobacco Smoking Status Never Smoker Olga gonzalez [facility], [facility] 10/19/2015 10:07:07 Do You Have An Advance Directive? No [email or web address] Information not available 02/16/2016 What Is Your Level Of Alcohol Consumption? Moderate Information not available 11/24/2016 How Much Tobacco Do You Chew? None [email or web address] Information not available 11/24/2016 Which Illicit Or Recreational Drugs Have You Used? 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 No Information not available 11/24/2016 Sex: Unknown Functional Status Question Answer Note LastModified by Organization D etails LastModified Time What is your exercise level? Moderate [email or web address] Information not available 02/16/2016 Mental Status None [...] SNOMED-CT Code Diagnosis ICD10 Code Diagnosis Note [id number] EDIE Ferrell [employer] [address] [place] [address] 10/19/2015 09:48:03 10/19/2015 10:47:13 Vitamin D deficiency 36254634 E55.9 he prefers I go an rx for the Vit Dl Hyperlipidemia 07403822 E78.5 will adhere to a low fat diet this year and recheck in a year. [id number] Trav GANDHIZyncdKEVEN RICHAR[address]ONVIDONNA [address] [place] [address] 11/17/2015 10:34:28 11/17/2015 11:25:51 Anxiety disorder 838004751 F41.9 pt has medication at home which addresses problem [id number] EDIE Ferrell [address] [place] [address] 02/16/2016 09:42:14 02/16/2016 10:45:23 Chest pain 56409633 R07.9 Anxiety disorder 5332377 06 F41.9 it is possible he is having anxiety. [id number] YANCI Dueñas [facility] [address] [place] [address] 11/24/2016 08:07:32 11/24/2016 08:48:39 Generalized anxiety disorder 09276660 F41.1 Patient here today for ongoing treatment [...] pression with the goal of discontinu ing shelter use of ativan once optimal therapy reached. [...] Carranza Member ID Guarantor Name 10/19/2015 1 [facility] [id number] Roman Godinezo [id number] Roman Godinezo 11/17/2015 1 [facility] [id number] Chaseer Jordy Salas [id number] Christopher Salas 02/16/2016 1 [facility] [id number] Roman Spence Salas [id number] Ciprianoopher Salas 11/24/2016 1 [facility] [id number] Roman Spence Salas [id number] Roman Marina Notes Date Note Type Note Provider Name and Address Organization Details Recorded Time 10/19/2015 text/html pt is here for review of labs, he has low Vit D and mildly elevated lipids, he is healthy vitals as noted are normal EDIE Ferrell [address], [place], [address], [facility], [facility] 10/19/2015 10:42:50 11/17/2015 text/html AnxietyReported bypatient.Reason for visit:exacerbation of chronic complaint Anxiety Type:episodic anxiety Quality:nervous;agit ated Severity:moderate 5/10 Onset/Timing:abrupt; 3 years ago Context:major life stressors;trouble at work Alleviating factors:medication Associated Symptoms:denies suicidal ideations;sleep disturbances [facility] 11/17/2015 11:21:42 02/16/2016 text/html Chest [...] 3 yrs. He would like to see parallel computing software engineer. EDIE Ferrell [address], [place], [address], [facility], [facility] 02/16/2016 10:36:04 11/24/2016 text/html AnxietyReported [...] some loss of interest in normal activities. Afshan Alejandra, [facility] [address] [facility] [address], [place], [address], [facility] - [facility], [facility] 11/24/2016 11:19:25
--- OUTSIDE RECORDS SUMMARY | 2024-11-27 11:26 | XMS_ITS | Encounter Summary ---
Author Organization [facility] Address [address] [place] [address] Care Team Providers Care International Manager Name Role Phone Jeri Lam MD Primary Care Provider Rudolph Pereira Primary Care Provider [phone] Ceferino Ross MD Primary Care Provider Encounter Details Date Type Department Care Team Description 11/08/2018 Telephone Gastroenterology - [facility] [address] [facility] [address] [place] [address] Red Sánchez MD [address] [place] [address] [id number] Social History Tobacco Use Types Packs/Day Years Used Date Smoking Tobacco: Never Smokeless Tobacco: Never Alcohol Use Standard Drinks/Week Comments No 0 (1 standard drink = 0.6 oz pur e alcohol) Sex Assigned at Date Recorded Not on file Job Start Date Occupation Industry Not on file Not on file Not on file documented as of this encounter Miscellaneous Notes * Telephone Encounter - Flavia Olguin - 11/08/2018 7:43 PM EDT All attempts to reach patient to schedule GI consult have been exhausted. documented in this encounter Plan of Treatment Not on file documented as of this encounter Visit Diagnoses Not on filedocumented in this encounter Care Teams International Manager Relationship Specialty Start Date End Date Jeri Lam MD PCP - General Internal Medicine 09/04/18 12/07/21 Rudolph Barrett [address] [place] [address] PCP - General Internal Medicine 12/08/21 05/04/22 Ceferino Ross MD [address] [place] [address] PCP - General Internal Medicine 05/05/22 documented as of this encounter
--- OUTSIDE RECORDS SUMMARY | 2024-11-27 11:26 | XMS_ITS | Encounter Summary ---
Author Organization [facility] Address [address] [place] [address] Care Team Providers Care Plant Operations Worker Name Role Phone Jeri Lam MD Primary Care Provider Unavail able Rudolph Barrett Primary Care Provider [phone] Ceferino Ross MD Primary Care Provider Reason for Visit * Reason Onset Date Comments Error 04/09/2019 Encounter Details Date Type Department Care Team Description 04/09/2019 Telephone Adult Medicine [address] [address] Jeri Lam MD Error Social History Tobacco Use Types Packs/Day Years [...] encounter Miscellaneous Notes * Telephone Encounter - Jacqueline Rich - 04/09/2019 8:49 AM EDT Error documented in this encounter Plan of Treatment Not on file documented as of this encounter Visit Diagnoses Not on filedocumented in this encounter Care Teams Plant Operations Worker Relationship Specialty Start Date End Date Jeri Lam MD PCP - General Internal Medicine 09/04/18 12/07/21 Rudolph Barrett [address] [place] [address] PCP - General Internal Medicine 12/08/21 05/04/22 Ceferino Ross MD [address] [place] [address] PCP - General Internal Medicine 05/05/22 documented as of this encounter
== END 2024-11-27 11:39 | disposition home or self-care (01) ==
LOC: HO.HMCSH 10:00
PROVIDERS: PCP Internal Medicine; Visit Provider Physician Assistant Medical
DX: R42 Dizziness and giddiness (principal); R17 Unspecified jaundice; R07.89 Other chest pain; R25.1 Tremor, unspecified; Z76.89 Persons encountering health services in other specified circumstances

== ENCOUNTER → 2024-11-27 10:00 | Outpatient (BNVA) | payer OTHER, SELFPAY | PROVIDERS: PCP Internal Medicine; Visit Provider Physician Assistant Medical ==

== ENCOUNTER 2024-11-27 11:03 | Emergency (ER) | payer OTHER, SELFPAY ==
--- NOTE | ~2024-11-27 | XR_ITS ---
EXAMINATION: XR CHEST CLINICAL INFORMATION: left sided chest pain COMPARISON: None available. TECHNIQUE: 2 views of the chest were obtained. FINDINGS: The cardiac, hilar, and mediastinal contours are normal. Lungs are well inspired and clear bilaterally. There is no pneumothorax or pleural effusion. There is no focal osseous or soft tissue abnormality. XR/XR chest 2V IMPRESSION: No active pulmonary disease. Electronically signed by: Moses Montoya MD 11/27/2024 02:21 PM EDT
--- NOTE | ~2024-11-27 | US_ITS ---
EXAMINATION: US ABDOMEN LIMITED CLINICAL INFORMATION: Scleral icterus. COMPARISON: Limited to CT dated November 27, 2024. TECHNIQUE: Real-time ultrasound of the right upper quadrant abdomen using grayscale and color Doppler technique. Limited exam. FINDINGS: Liver measures 21 cm. Increased echotexture. There are several rounded anechoic lesions throughout the right hepatic lobe, the largest measures 1.3 cm. The main portal vein is patent with normal hepatopedal flow direction. No intrahepatic biliary ductal dilatation. Gallbladder is fluid-filled. No pericholecystic fluid collection or gallbladder wall thickening. Common bile duct measures 3 mm. No ascites. No hydronephrosis in the right kidney. No peripancreatic fluid collection. No main pancreatic ductal dilatation. US/US abdomen limited IMPRESSION: Hepatomegaly and steatosis. Multiple hepatic cystic lesions. No intrahepatic or extrahepatic biliary ductal dilatation. Electronically signed by: Jean Pierre Cox MD 11/27/2024 02:39 PM EDT
--- NOTE | ~2024-11-27 | CT_ITS ---
EXAMINATION: CT ABDOMEN AND PELVIS WITH CONTRAST CLINICAL INFORMATION: Scleral icterus. Elevated bilirubin and liver function test COMPARISON: None available. TECHNIQUE: Multidetector volumetric images were obtained from the superior aspect of the liver through the pubic symphysis following administration 85 mL of Omnipaque 350 intravenous contrast. Sagittal and coronal reformatted images were obtained on the technologist's workstation. Oral contrast: No This CT examination was performed using dose optimization techniques as appropriate, variously including the following: *Automated exposure control *Adjustment of mA and/or kV according to patient size (this includes techniques or standardized protocols for targeted exams where dose is matched to indication/reason for exam; i.e. extremities or head) *Use of iterative reconstruction technique. DLP: 762 mGy centimeter. FINDINGS: LUNG BASES: No acute airspace disease. LIVER, GALLBLADDER, AND BILIARY TREE: Liver measures 21 cm. Decreased enhancement pattern throughout the parenchyma. There are several, round, well-defined hypodensities throughout the right hepatic lobe, the largest measures 2.2 cm. The portal veins, hepatic veins and intrahepatic portion of the IVC are patent. No pericholecystic fluid collection or gallbladder wall thickening. No intrahepatic or extrahepatic biliary ductal dilatation PANCREAS: No focal mass. No peripancreatic fluid collection. No main pancreatic ductal dilatation. SPLEEN: 15 cm. No focal lesion. ADRENAL GLANDS: No nodular lesions. KIDNEYS AND URETERS: No hydronephrosis. No gross nephrolithiasis. Less than 1 cm hypodensity at the corticomedullary junction midportion, right kidney. BLADDER: Fluid-filled. GASTROINTESTINAL TRACT: Appendix is normal. Collapsed appearance of small bowel loops and others with gas and fluid-filled mildly prominent. Collapsed appearance of the left hemicolon. No intestinal obstruction pattern. No ascites. No pneumoperitoneum. No pneumatosis intestinalis. ABDOMINAL WALL: Small fat-containing umbilical and supraumbilical hernias. LYMPH NODES: Nonspecific mildly prominent in the retroperitoneum and mesentery. VASCULAR: No aneurysm or dissection, abdominal aorta. PELVIC VISCERA: Nonenlarged prostate gland. OSSEOUS STRUCTURES: Multilevel thoracolumbar spondylosis without acute fracture or listhesis. Syndesmophyte formation in the sacroiliac joints. Probably bony island, left acetabulum. CT/CT abdomen pelvis w IV con IMPRESSION: Hepatosplenomegaly and hepatic steatosis. Nonspecific cystic lesions, right hepatic lobe. No intrahepatic or extrahepatic biliary ductal dilatation. Probable mild enteritis. Small cystic lesion, right kidney. Fleischner guidelines were followed. Electronically signed by: Jean Pierre Cox MD 11/27/2024 02:20 PM EDT
--- NOTE | 2024-11-27 11:16 | ED.NEUROSD ---
HPI - Neuro Symptoms/Deficit General Chief Complaint: ETOH/Substance Use Stated Complaint: Dizziness, Numbness In Fingers and Toes Time Seen by Provider: 11/27/24 11:28 Source: patient and family (dad) Mode of arrival: ambulatory Limitations: no limitations History of Present Illness ED Provider: SAKSHI CHAN PA-C HPI Narrative: 44-year-old male with pmhx etoh abuse and anxiety presents to the ED today from PCP office for evaluation of tremors and paresthesias to b/l fingers and toes x10-14 days. Admits to yellow discoloration to both eyes x3 weeks. Denies any abdominal pain, nausea, vomiting, diarrhea, constipation. Reports 2-4 alcoholic beverages daily ranging from beer to hard liquor. Admits to attempting to cut back on etoh consumption over the last few weeks. Denies any history of withdrawals. Denies history of withdrawal seizures. Denies AH/VH/TH. Denies illicit substance use. Denies hx IVDU. He also endorses spasm sensation to left upper chest, primarily located along his pectoral muscle. this is not exacerbated with movements. discomfort does not radiate. Denies recent heavy lifting. Admits to recent flight to [employer] for work however left sided chest pain was present prior to flight. Denies any calf pain, shortness of breath, cough, hemoptysis, melena, hematuria. Patient initially presented to his primary care provider today for new patient appointment - he was noted to have scleral icterus and was advised to come to the ED for further evaluation. Related Data Previous Rx's ?Medication ?Instructions ?Recorded albuterol sulfate 90 mcg/actuation 1 inh inhalation QID PRN shortness 10/02/24 aerosol inhaler of breath or wheezing #6.7 grams diazepam 10 mg tablet See Rx Instructions .Route 11/27/24 .COMPLEX PRN alcohol withdrawal #10 tabs mecobalamin (vitamin B12) 1,000 1,000 mcg PO DAILY 30 days #30 tabs 11/27/24 mcg chewable tablet naltrexone 50 mg tablet 50 mg PO DAILY 30 days #30 tabs 11/27/24 thiamine HCl (vitamin B1) 100 mg 100 mg PO DAILY 5 days #5 caps 11/27/24 capsule Allergies Allergy/AdvReac Type Severity Reaction Status Date / Time No Known Allergies Allergy Verified 11/27/24 11:20 Review of Systems Review of Systems: Yes all other systems are reviewed and are negative [facility] Past Medical History Attestation statement: The following information was validated with the patient. Source: old records reviewed and nursing notes reviewed Medical History Establishing care with new doctor, encounter for Occasional tremors Chest wall pain Scleral icterus Dizziness Family History Family History Father No problems noted. Mother No problems noted. Social History Social History Housing: Apartment Alcohol intake: current Alcohol intake frequency: 3 or more drinks per day Alcohol type: hard liquor Patient Tobacco Use Status: Never used Tobacco service: No Current occupational status: employed Cognitive needs: No Hearing needs: No Vision needs: No Physical Exam Vital Signs: Vital Signs: Last Vital Signs Temp 98.5 F 11/27/24 17:53 Pulse 88 11/27/24 17:53 Resp 19 11/27/24 17:53 BP 136/93 H 11/27/24 17:53 Pulse Ox 94 11/27/24 17:53 O2 Del Method Room Air 11/27/24 17:53 BMI result Body Mass Index 29.0 Hypertensive, vitals otherwise WNL General: tremulous, restless Skin: Warm, dry, intact. No rashes or lesions. Head: mormocephalic, atraumatic. EENT: Hearing is intact b/l. Scleral icterus. PERRLA. EOM intact. Moist mucous membranes.? Neck: Supple without LAD Cardiac: Chest wall symmetric. RRR. No reproducible anterior chest wall tenderness to palpation. No palpable crepitus Lungs: Normal respiratory effort without accessory muscle use. CTA bilaterally. No rales, rhonchi, or wheezes.? Abdomen: Soft, nondistended, nontender to palpation, no rebound tenderness or guarding. Active bowel sounds x4. Ext: Upper and lower extremities atraumatic, without tenderness, deformity, swelling or erythema. Full ROM throughout Neuro: AOx3. Normal speech. Tremulous, no asterixis, no myoclonus, no tongue fasciculations. Strength 5/5 intact throughout. Sensation intact to light touch. NV intact distally. Ambulating with steady gait. Course Course Course Narrative: This is a Rapid Medical Exam performed in triage by Anna Mcclendon PA-C. Full HPI, ROS and PE to be performed by primary ED provider. 44 yo M presenting to the ED c/o dizziness, jaundice, tremors, numbness to fingers & toes x2 weeks & chest pain x1 week. Admits to drinking ETOH daily, 2-3 drinks, last drink yesterday 8PM. denies hx ETOH withdrawal. Admits to trying to cut back on ETOH over the past few weeks. denies ilicit drug use. denies abdominal pain PE: +scleral icterus, nontoxic appearing, no tongue fasciculations Plan: EKG, labs, UA Reevaluation(s) Reevaluation #1: ekg showing NSR w/ rate of 95 bpm, no acute ischemic changes or st elevations. cxr without infiltrate or consolidation. troponin wnl. ACS unlikely. negative covid, flu, rsv. lipase wnl. ammonia wnl. drug screen urine negative. ethanol and acetaminophen levels undetectable.CBC without leukocytosis or left shift. Chemistry without acute electrolyte abnormality requiring. Total bilirubin 4, direct bili 1.2, AST/ALT 267/237, alk phos 75. PT/INR wnl. Vitamin b12 around lower limits - will advise supplementation. Folate wnl. Abdominal ultrasound: Hepatomegaly and steatosis. Multiple hepatic cystic lesions. No intrahepatic or extrahepatic biliary ductal dilatation. CT a/p: Hepatosplenomegaly and hepatic steatosis. Nonspecific cystic lesions, right hepatic lobe. No intrahepatic or extrahepatic biliary ductal dilatation. Probable mild enteritis. Small cystic lesion, right kidney. - hep a/b/c panel pending - spoke w/ operations and maintenance specialist GI dr. longoria > likely alcoholic hepatitis. since bili and INR are reasonable, he is not recommending prednisolone at this time. advise patient to stop drinking etoh. no further intervention warranted from GI standpoint. Discussed all work up results with patient. discussed the importance of etoh cessation. he was treated w/ 2mg ativan for CIWA of 8. feels well. no longer tremulous. Patient declining inpatient detox. would like outpatient resources on how to stop drinking. I spoke with Kianna Dejesus (addiction recovery) - recommending 4 day taper of diazepam and naltrexone. she will follow up with patient outpatient at [facility]. referral provided. discussed w/ patient. he will contact their office tomorrow morning. advised patient NOT to consume etoh or opioid medication while on diazepam. both patient and father at bedside verbalize understanding. advised thiamine/b12/folate supplementation. Patient has remained stable throughout ED visit today. Discussed worrisome signs and symptoms and when to return to the ED. All questions answered at this time. patient's father will be driving him home today. Patient is agreeable with disposition and stable for discharge. Medications Administered Discontinued Medications Generic Name Dose Route Start Last Admin Trade Name Jc PRN Reason Stop Dose Admin Iohexol 100 ml 11/27/24 13:37 11/27/24 13:38 Iohexol 350 Mg/Ml 100 Ml Infus..Btl IV 11/27/24 13:38 85 ml ONCE ONE Administration Lorazepam 2 mg 11/27/24 13:04 11/27/24 13:14 Lorazepam 1 Mg Tablet PO 11/27/24 13:05 2 mg ONCE ONE Administration Medical Decision Making Medical Decision Making [facility] Narrative: 44-year-old male with pmhx etoh abuse and anxiety presents to the ED today from PCP office for evaluation of tremors and paresthesias to b/l fingers and toes x10-14 days. Hypertensive to 153/106, vitals are otherwise WNL. He is tremulous, anxious appearing. No asterixis, myoclonus or tongue fasciculations. Ambulating with steady gait. Abdomen is soft, nondistended, nontender to palpation, no rebound tenderness or guarding. Active bowel sounds x4. Differential diagnosis includes anemia, electrolyte abnormality, dehydration, ETOH intoxication, ETOH withdrawal, vitamin deficiency, cholelithiasis, cholecystitis, liver v pancreas mass, biliary obstruction, orthostatic hypotension Plan for labs, ekg, cxr, abdominal US and CT, ciks Differential Diagnosis Differential Diagnoses: The differential diagnosis associated with the presentation includes as above. Admission/Observation Consideration of admission/observation: Escalation of care including admission/observation considered Consult Healthcare Provider Management of the patient was discussed with: Counter Tender gi - dr. longoria addiction med - hollie dejesus Lab Data [facility] Lab Attestation statement: I reviewed the patient's lab results. as above. 11/27/24 11:29 11/27/24 11:29 Labs: Lab Results 11/27/24 11/27/24 11/27/24 Range/Units 11:29 13:05 16:00 WBC 8.6 (4.8-10.8) X10*3/uL RBC 4.78 (4.60-5.80) X10*6/uL Hgb 16.0 (14.0-18.0) g/dl Hct 42.8 (42.0-52.0) % MCV 89.5 (80.0-98.0) fL MCH 33.5 H (27.0-33.0) pg MCHC 37.4 H (31.0-36.0) g/dl RDW 12.9 (11.0-16.0) % Plt Count 144 L (160-400) X10*3/uL MPV 8.9 L (9.4-12.4) fL Immature Gran % (Auto) 0.3 (0.0-0.4) % Neut % (Auto) 83.2 H (45-73) % Lymph % (Auto) 8.9 L (20-40) % [place] % (Auto) 6.7 (2-11) % Eos % (Auto) 0.3 (0-4) % Baso % (Auto) 0.6 (0-2) % Lymph # (Auto) 0.8 L (1.2-4.9) X10*3/uL [place] # (Auto) 0.6 (0.1-1.2) X10*3/uL Eos # (Auto) 0.0 (0.0-0.4) X10*3/uL Baso # (Auto) 0.1 (0.0-0.2) X10*3/uL Abs Immat Gran (auto) 0.03 (0.00-0.03) X10*3/uL Absolute Neuts (auto) 7.2 (2.0-8.3) x10*3/uL Absolute Nucleated RBC 0.000 (0.0-0.012) X10*3/uL Nucleated RBC % (auto) 0.0 (0.0-0.2) /100WBC PT 11.9 (10.9-12.4) SEC INR 1.0 (0.9-1.1) Sodium 137 (135-145) mmol/L Potassium 3.5 (3.3-5.1) mmol/L Chloride 103 (96-108) mmol/L Carbon Dioxide 24 (22-29) mmol/L Anion Gap 14 (12-20) BUN 11 (9-16) mg/dL Creatinine 0.80 (0.5-1.4) mg/dL Estim Creat Clear Calc 154.7 Estimated GFR > 60 Random Glucose 94 (60-115) mg/dL Calcium 10.0 (8.4-10.2) mg/dL Magnesium 2.0 (1.6-2.6) mg/dL Total Bilirubin 4.0 H (0.0-1.0) mg/dL Direct Bilirubin 1.2 H (0.0-0.5) mg/dL AST 267 H (5-37) U/L ALT 237 H (0-40) U/L Alkaline Phosphatase 75 (39-117) U/L Ammonia 46 (13-55) umol/L Troponin I High Sens 3.0 (<3.5-35.0) ng/L Total Protein 8.2 H (6.5-8.0) g/dL Albumin 5.0 (3.5-5.0) g/dL Lipase 31 (8-78) U/L Vitamin B12 252 (200-900) pg/mL Folate 14.5 (> or = 4.0) ng/mL Urine Opiates Screen (Not Detect) Ur Buprenorphine Scrn (Not Detect) ng/mL Ur Oxycodone Screen (Not Detect) ng/mL Urine Methadone Screen (Not Detect) ng/mL Urine Fentanyl Screen (Not Detect) Acetaminophen < 3 (<30) mcg/mL Ur Barbiturates Screen (Not Detect) Ur Phencyclidine Scrn (Not Detect) Ur Amphetamines Screen (Not Detect) U Benzodiazepines Scrn (Not Detect) Urine Cocaine Screen (Not Detect) U Marijuana (THC) Screen (Not Detect) Ethyl Alcohol < 10 mg/dL Influenza Type A (PCR) NEGATIVE (Negative) Influenza Type B (PCR) NEGATIVE (Negative) RSV RNA Qual (PCR) NEGATIVE (Negative) SARS-CoV-2 RNA (RT-PCR) NEGATIVE (Negative) 11/27/24 Range/Units 16:06 WBC (4.8-10.8) X10*3/uL RBC (4.60-5.80) X10*6/uL Hgb (14.0-18.0) g/dl Hct (42.0-52.0) % MCV (80.0-98.0) fL MCH (27.0-33.0) pg MCHC (31.0-36.0) g/dl RDW (11.0-16.0) % Plt Count (160-400) X10*3/uL MPV (9.4-12.4) fL Immature Gran % (Auto) (0.0-0.4) % Neut % (Auto) (45-73) % Lymph % (Auto) (20-40) % [place] % (Auto) (2-11) % Eos % (Auto) (0-4) % Baso % (Auto) (0-2) % Lymph # (Auto) (1.2-4.9) X10*3/uL [place] # (Auto) (0.1-1.2) X10*3/uL Eos # (Auto) (0.0-0.4) X10*3/uL Baso # (Auto) (0.0-0.2) X10*3/uL Abs Immat Gran (auto) (0.00-0.03) X10*3/uL Absolute Neuts (auto) (2.0-8.3) x10*3/uL Absolute Nucleated RBC (0.0-0.012) X10*3/uL Nucleated RBC % (auto) (0.0-0.2) /100WBC PT (10.9-12.4) SEC INR (0.9-1.1) Sodium (135-145) mmol/L Potassium (3.3-5.1) mmol/L Chloride (96-108) mmol/L Carbon Dioxide (22-29) mmol/L Anion Gap (12-20) BUN (9-16) mg/dL Creatinine (0.5-1.4) mg/dL Estim Creat Clear Calc Estimated GFR Random Glucose (60-115) mg/dL Calcium (8.4-10.2) mg/dL Magnesium (1.6-2.6) mg/dL Total Bilirubin (0.0-1.0) mg/dL Direct Bilirubin (0.0-0.5) mg/dL AST (5-37) U/L ALT (0-40) U/L Alkaline Phosphatase (39-117) U/L Ammonia (13-55) umol/L Troponin I High Sens (<3.5-35.0) ng/L Total Protein (6.5-8.0) g/dL Albumin (3.5-5.0) g/dL Lipase (8-78) U/L Vitamin B12 (200-900) pg/mL Folate (> or = 4.0) ng/mL Urine Opiates Screen Not Detected (Not Detect) Ur Buprenorphine Scrn Not Detected (Not Detect) ng/mL Ur Oxycodone Screen Not Detected (Not Detect) ng/mL Urine Methadone Screen Not Detected (Not Detect) ng/mL Urine Fentanyl Screen Not Detected (Not Detect) Acetaminophen (<30) mcg/mL Ur Barbiturates Screen Not Detected (Not Detect) Ur Phencyclidine Scrn Not Detected (Not Detect) Ur Amphetamines Screen Not Detected (Not Detect) U Benzodiazepines Scrn Not Detected (Not Detect) Urine Cocaine Screen Not Detected (Not Detect) U Marijuana (THC) Screen Not Detected (Not Detect) Ethyl Alcohol mg/dL Influenza Type A (PCR) (Negative) Influenza Type B (PCR) (Negative) RSV RNA Qual (PCR) (Negative) SARS-CoV-2 RNA (RT-PCR) (Negative) Independent Interpretation I performed an independent interpretation of an: EKG, Ultrasound and CT Scan Interpretation: ekg showing nsr w/ rate 95 bpm, no acute ischemic changes or st elevations ruq us w/o gallstones ct a/p without cbd dilation Radiology Impression Discussion of test interpretation with radiology: I have reviewed the radiologist's reading. Radiologist Impression: Procedure(s): CT abdomen pelvis w IV con Accession Number(s): [id number] cc: Sakshi Chan; Jose Edmondson MD~ Report Number: [id number]: Total DLP = 762.00 mGy-cm EXAMINATION: CT ABDOMEN AND PELVIS WITH CONTRAST CLINICAL INFORMATION: Scleral icterus. Elevated bilirubin and liver function test COMPARISON: None available. TECHNIQUE: Multidetector volumetric images were obtained from the superior aspect of the liver through the pubic symphysis following administration 85 mL of Omnipaque 350 intravenous contrast. Sagittal and coronal reformatted images were obtained on the technologist's workstation. Oral contrast: No This CT examination was performed using dose optimization techniques as appropriate, variously including the following: *Automated exposure control *Adjustment of mA and/or kV according to patient size (this includes techniques or standardized protocols for targeted exams where dose is matched to indication/reason for exam; i.e. extremities or head) *Use of iterative reconstruction technique. DLP: 762 mGy centimeter. FINDINGS: LUNG BASES: No acute airspace disease. LIVER, GALLBLADDER, AND BILIARY TREE: Liver measures 21 cm. Decreased enhancement pattern throughout the parenchyma. There are several, round, well-defined hypodensities throughout the right hepatic lobe, the largest measures 2.2 cm. The portal veins, hepatic veins and intrahepatic portion of the IVC are patent. No pericholecystic fluid collection or gallbladder wall thickening. No intrahepatic or extrahepatic biliary ductal dilatation PANCREAS: No focal mass. No peripancreatic fluid collection. No main pancreatic ductal dilatation. SPLEEN: 15 cm. No focal lesion. ADRENAL GLANDS: No nodular lesions. KIDNEYS AND URETERS: No hydronephrosis. No gross nephrolithiasis. Less than 1 cm hypodensity at the corticomedullary junction midportion, right kidney. BLADDER: Fluid-filled. GASTROINTESTINAL TRACT: Appendix is normal. Collapsed appearance of small bowel loops and others with gas and fluid-filled mildly prominent. Collapsed appearance of the left hemicolon. No intestinal obstruction pattern. No ascites. No pneumoperitoneum. No pneumatosis intestinalis. ABDOMINAL WALL: Small fat-containing umbilical and supraumbilical hernias. LYMPH NODES: Nonspecific mildly prominent in the retroperitoneum and mesentery. VASCULAR: No aneurysm or dissection, abdominal aorta. PELVIC VISCERA: Nonenlarged prostate gland. OSSEOUS STRUCTURES: Multilevel thoracolumbar spondylosis without acute fracture or listhesis. Syndesmophyte formation in the sacroiliac joints. Probably bony island, left acetabulum. CT/CT abdomen pelvis w IV con IMPRESSION: Hepatosplenomegaly and hepatic steatosis. Nonspecific cystic lesions, right hepatic lobe. No intrahepatic or extrahepatic biliary ductal dilatation. Probable mild enteritis. Small cystic lesion, right kidney. Fleischner guidelines were followed. Electronically signed by: Jean Peirre Cox MD 11/27/2024 02:20 PM EDT Procedure(s): US abdomen limited Accession Number(s): [id number] cc: Sakshi Chan; Jose Edmondson MD~ EXAMINATION: US ABDOMEN LIMITED CLINICAL INFORMATION: Scleral icterus. COMPARISON: Limited to CT dated November 27, 2024. TECHNIQUE: Real-time ultrasound of the right upper quadrant abdomen using grayscale and color Doppler technique. Limited exam. FINDINGS: Liver measures 21 cm. Increased echotexture. There are several rounded anechoic lesions throughout the right hepatic lobe, the largest measures 1.3 cm. The main portal vein is patent with normal hepatopedal flow direction. No intrahepatic biliary ductal dilatation. Gallbladder is fluid-filled. No pericholecystic fluid collection or gallbladder wall thickening. Common bile duct measures 3 mm. No ascites. No hydronephrosis in the right kidney. No peripancreatic fluid collection. No main pancreatic ductal dilatation. US/US abdomen limited IMPRESSION: Hepatomegaly and steatosis. Multiple hepatic cystic lesions. No intrahepatic or extrahepatic biliary ductal dilatation. Electronically signed by: Jean Pierre Cox MD 11/27/2024 02:39 PM EDT RP Procedure(s): XR chest 2V Accession Number(s): [id number] cc: Sakshi Chan; Jose Edmondson MD~ EXAMINATION: XR CHEST CLINICAL INFORMATION: left sided chest pain COMPARISON: None available. TECHNIQUE: 2 views of the chest were obtained. FINDINGS: The cardiac, hilar, and mediastinal contours are normal. Lungs are well inspired and clear bilaterally. There is no pneumothorax or pleural effusion. There is no focal osseous or soft tissue abnormality. XR/XR chest 2V IMPRESSION: No active pulmonary disease. Electronically signed by: Moses Montoya MD 11/27/2024 02:21 PM EDT Independent Historian Clinical information obtained from an independent historian. History obtained from or confirmed by: Parent (dad) External Record Review External record reviewed: Inpatient record Prescription Management I considered prescription management with: Other (naltrexone, diazepam, folate, b12, thiamine) Chronic Conditions Patient?s care impacted by: Other (etoh abuse) Social Determinants Patient?s care significantly limited by Social Determinants of Health including: Alcoholism and drug addiction in family and Other Social Determinant of Health Critical Care Time Critical Care Time Critical Care Time: No Discharge Plan Discharge Clinical Impression: Alcoholic hepatitis, Paresthesias, Alcohol withdrawal Patient Disposition: Home, Self-Care Instructions: Thiamine (By mouth), Folic Acid (By mouth), Liver Disease Diet (DC), Vitamin B12 Deficiency (ED), Alcoholic Hepatitis (ED) Additional Instructions: As discussed, your blood work shows elevated liver enzymes and bilirubin concerning or an alcoholic hepatitis. Your chest x-ray is unremarkable. The EKG of your heart is normal. The CT scan of your abdomen shows a large liver and large spleen along with fatty liver. See home care instructions. The ultrasound of your upper abdomen shows redemonstration of this. Your blood work is otherwise reassuring. I am starting you on vitamin B12 and thiamine supplementation. Take this as prescribed daily. I also recommend dojs-nun-djcyxor folic acid daily. Upon discussion, you are declining detox today. Your discussion with addiction recovery, we are starting you on 2 different medications to help with alcohol withdrawal and abstinence from alcohol. Diazepam is a benzodiazepine medication that I am prescribing you to aid in your withdrawals from alcohol. DO NOT DRINK ALCOHOL OR USE ANY OTHER OPIATE MEDICATION WHILE TAKING DIAZEPAM. THIS CAN LEAD TO SEVERE RESPIRATORY DEPRESSION AND EVEN . Follow the taper below. Day 1 - take 1 tab (10 mg) every 6 hours Day 2 - take 1 tab (10 mg) every 8 hours Day 3 - take 1 tab (10 mg) every 12 hours Day 4 - take 1 tab (10 mg) at bed time I am also sending a medication called naltrexone to your pharmacy to help with abstinence from alcohol. This should help with any cravings. Take as prescribed below: Take half a tab (25 mg) per day for 3 days then take 1 full tab (50 mg) per day [facility] ([id number]) [address] ? If you experience seizures, vomiting blood, black stools, falls, severe headache, chest pain, fevers, trouble breathing, hallucinations or any other concerns you need to call 911 or seek immediate care. Please stay hydrated. Please also follow-up with gastroenterology to monitor your alcoholic hepatitis. I have provided you with a referral. Call them to establish care. They will not call you. Prescriptions: New thiamine HCl (vitamin B1) 100 mg capsule 100 mg PO DAILY 5 Days Qty: 5 0RF mecobalamin (vitamin B12) 1,000 mcg tablet,chewable 1,000 mcg PO DAILY 30 Days Qty: 30 0RF naltrexone 50 mg tablet 50 mg PO DAILY 30 Days Qty: 30 0RF Rx Instructions: take 1/2 tab (25 mg) per day x3 days then a full tab per day diazepam 10 mg tablet See Rx Instructions .ROUTE .COMPLEX PRN (Reason: alcohol withdrawal) Qty: 10 0RF Rx Instructions: Day 1: 10 mg every 6 hours Day 2: 10 mg every 8 hours Day 3: 10 mg every 12 hours Day 4: 10 mg at bedtime, then discontinue diazepam No Action albuterol sulfate 90 mcg/actuation HFA aerosol inhaler 1 inh inhalation QID PRN (Reason: shortness of breath or wheezing) Qty: 6.7 1RF [place]: [facility] [place] Group] - 3 days (Alcoholic hepatitis) [facility] [[facility] Group] Jose Edmondson MD [Primary Care Provider] - Stand Alone Forms: Work/School Release Interventions: ED Discharge Assessment Last Done: 11/27/24 17:53 Discharge Date/Time: 11/27/24 18:06 Print Language: Bruneian
--- NOTE | 2024-11-27 11:17 | ECG_ITS ---
Test Reason : tremuluous Blood Pressure : */* mmHG Vent. Rate : 95 BPM Atrial Rate : 95 BPM P-R Int : 162 ms QRS Dur : 100 ms QT Int : 376 ms P-R-T Axes : 62 41 27 degrees QTcB Int : 472 ms Normal sinus rhythm Normal ECG No previous ECGs available Referred By: Anna Mcclendon Electronically Signed By: AARON JUAREZ
[2024-11-27 11:18] VITALS: BP 153/106; PULSE 98; RESP 18; TEMP 36.9; O2SAT 98; BMI 29.0
[2024-11-27 11:35] LABS: MANUAL DIFF FLAG NO
[2024-11-27 11:39] LABS: Basophils Absolute Auto 0.1 X10*3/uL (0.0-0.2); Basophils Percent Auto 0.6 % (0-2); Eosinophils Percent Auto 0.3 % (0-4); Hematocrit 42.8 % (42.0-52.0); Imm Gran Abs Auto 0.03 X10*3/uL (0.00-0.03); Imm Gran Pct Auto 0.3 % (0.0-0.4); Lymphocytes Absolute Auto 0.8 X10*3/uL (1.2-4.9); Lymphocytes Percent Auto 8.9 % (20-40); Mean Corpuscular HGB Conc 37.4 g/dl (31.0-36.0); Mean Corpuscular Hemoglobin 33.5 pg (27.0-33.0); Mean Corpuscular Volume 89.5 fL (80.0-98.0); Mean Platelet Volume 8.9 fL (9.4-12.4); Monocytes Absolute Auto 0.6 X10*3/uL (0.1-1.2); Monocytes Percent Auto 6.7 % (2-11); Neutrophils Absolute Auto 7.2 x10*3/uL (2.0-8.3); Neutrophils Percent Auto 83.2 % (45-73); Platelet Count 144 X10*3/uL (160-400); Red Blood Count 4.78 X10*6/uL (4.60-5.80); Red Cell Distribution Width 12.9 % (11.0-16.0); White Blood Count 8.6 X10*3/uL (4.8-10.8)
[2024-11-27 11:43] LABS: Ammonia 46 umol/L (13-55)
[2024-11-27 11:52] LABS: Alanine Aminotransferase 237 U/L (0-40); Alkaline Phosphatase 75 U/L (39-117); Anion Gap 14 (12-20); Aspartate Amino Transferase 267 U/L (5-37); Bilirubin Direct 1.2 mg/dL (0.0-0.5); Blood Urea Nitrogen 11 mg/dL (9-16); Carbon Dioxide 24 mmol/L (22-29); Chloride 103 mmol/L (96-108); Creatinine Clr Calc Pharmacy 154.7; Estimated Glomerular Filt Rate > 60; Ethanol < 10 mg/dL; Glucose Random 94 mg/dL (60-115); Lipase 31 U/L (8-78); Potassium 3.5 mmol/L (3.3-5.1); Sodium 137 mmol/L (135-145); Total Protein 8.2 g/dL (6.5-8.0)
[2024-11-27 11:53] LABS: Prothrombin Time 11.9 SEC (10.9-12.4)
[2024-11-27 12:33] LABS: Influenza A PCR NEGATIVE (Negative); Influenza B PCR NEGATIVE (Negative); Resp Syncy Virus RNA Qual PCR NEGATIVE (Negative); SARS COV2 PCR INHOUSE NEGATIVE (Negative)
[2024-11-27] MEDS: LORazepam 1 MG TABLET 2 MG PO (13:14)
[2024-11-27] MEDS: iohexoL 350 MG/ML 100 ML INFUS..BTL IV (13:38)
[2024-11-27 14:02] LABS: Folate 14.5 ng/mL (> or = 4.0); Vitamin B12 252 pg/mL (200-900)
[2024-11-27 15:32] VITALS: BP 129/88; PULSE 85
[2024-11-27 15:42] VITALS: BP 129/97; BP 130/102; PULSE 113; PULSE 99
[2024-11-27 16:28] LABS: Amphetamine Screen Urine Not Detected (Not Detect); Barbiturates, Urine Not Detected (Not Detect); Benzodiazepines Screen Urine Not Detected (Not Detect); Buprenorphine Scr Not Detected (Not Detect); Cannabinoid Screen Urine Not Detected (Not Detect); Cocaine Screen Urine Not Detected (Not Detect); Fentanyl, urine Not Detected (Not Detect); Methadone Screen, Urine Not Detected (Not Detect); Opiate Screen Urine Not Detected (Not Detect); Oxycodone Screen Urine Not Detected (Not Detect); Phencyclidine Screen Urine Not Detected (Not Detect)
[2024-11-27 16:29] LABS: Acetaminophen LAB < 3 mcg/mL (<30)
[2024-11-27 17:53] VITALS: BP 136/93; PULSE 88; RESP 19; TEMP 36.9; O2SAT 94
[2024-11-28 04:07] LABS: HBS Num1 252.64 mIU/mL (0-7.99); HBc Num1 0.05 S/CO (0.00-0.79); HBsAGNum1 0.27 S/CO (0.00-0.99); Hepatitis A Antibody IgM 0.15 Index (0-0.79); Hepatitis B Core Antibody Nonreactive (Nonreactive); Hepatitis B Surface Antigen Negative (Negative); ~HepC Num1 0.12 S/CO (0.00-0.79); ~Hepatitis A Antibody IgM Nonreactive (Nonreactive); ~Hepatitis B Surface Antibody REACTIVE (Nonreactive); ~Hepatitis C Antibody Nonreactive (Nonreactive)
== END 2024-11-27 18:06 | disposition home or self-care (01) ==
PROVIDERS: Physician Assistant; Physician Assistant Medical; Emergency Provider Emergency Medicine; PCP Internal Medicine
DX: K70.10 Alcoholic hepatitis without ascites (principal); R20.2 Paresthesia of skin; F10.239 Alcohol dependence with withdrawal, unspecified; R25.1 Tremor, unspecified; R07.9 Chest pain, unspecified; Z03.818 Encounter for observation for suspected exposure to other biological agents ruled out
CPT/HCPCS: 0241U; 36415; 71046; 74177; 76705; 80048; 80076; 80143; 80307; 82140; 82607; 82746; 83690; 83735; 84484; 85025; 85610; 86704; 86706; 86709; 86803; 87340; 93005; 96127; 99284; 99285; Q9967

== ENCOUNTER → 2024-11-27 11:17 | Outpatient (BNV) | payer OTHER, SELFPAY | PROVIDERS: Emergency Provider Emergency Medicine; PCP Internal Medicine; Visit Provider Internal Medicine | DX: R25.1 Tremor, unspecified (principal) | CPT/HCPCS: 93010 ==

== ENCOUNTER → 2024-11-27 12:52 | Outpatient (BNV) | payer OTHER, SELFPAY | PROVIDERS: Emergency Provider Emergency Medicine; PCP Internal Medicine; Visit Provider Radiology Diagnostic Radiology | DX: R17 Unspecified jaundice (principal); R94.5 Abnormal results of liver function studies; R07.9 Chest pain, unspecified | CPT/HCPCS: 71046; 74177; 76705 ==

== ENCOUNTER 2024-12-20 14:48 | Outpatient (AMB) | payer OTHER, SELFPAY ==
--- OUTSIDE RECORDS SUMMARY | 2024-12-20 14:52 | XMS_ITS | Data Portability ---
Author Organization [place] - [facility], [facility] Address [address] [place] [address] Care Team Providers Care Trade Manager Name Role Phone CHERELLE SALGADO Primary Care Provider [phone] CHERELLE SALGADO Referring Provider Assessment Encounter Date Assessment Date Assessment LastModified by Organization Details LastModified Time 11/24/2016 11/24/2016 HPI, ROS and physical assessment completed with plan as indicated below. [email or web address] Not available 11/24/2016 11:16:10 Plan of Treatment Reminders Order Date Submit Date Provider Last Modified By Organization Details Last Modified Time Details Appointments None recorded. Lab TSH, serum or plasma 2016 017 [email or web address] [facility], [address] [place], [address], 7 10:41:37 CMP, serum or plasma 2016 017 [email or web address] [facility], [address] [place], [address], 7 10:41:37 CBC 2016 017 [email or web address] [facility], [address] [place], [address], 7 10:41:37 urinalysis , complete 2016 017 RU[facility], [address], [place], [address], 7 08:27:53 Referral None recorded. Procedures None recorded. Surgeries None recorded. Imaging electrocar diogram 2015 016 In-Office Order, Internal Use Only DO Not Attach Compendium DO Not Attach Compendium, Do Not Delete/merge, [id number] 6 12:11:18 Medication Orders Ativan 1 mg tablet 2016 017 [facility] #[id number], [address] [place], [address], 7 08:59:34 citalopram [address] [id number], [address] [place], [address], 7 08:27:37 Ativan 1 mg tablet 2015 016 [id number], [address] [place], [address], 6 12:53:04 ergocalcif wei (vitamin D2) 1,250 mcg (50,000 unit) capsule 2015 016 [facility] #[id number], [address] [place], [address], 7 13:18:44 Patient TargetsNo targets recorded. Patient Instructions Encounter Date Encounter Id Patient Instructions Last Modified By Organization Details Last Modified Time 10/19/2015 [id number] he is quite healthy will get regular exercise, rx for Vit D. recheck prn or 6 months Not available 10/19/2015 10:42:17 02/16/2016 [id number] initial EKG albeit incomplete has no definitive [...] cardiac assessment. Not available 02/16/2016 10:35:44 11/24/2016 [id number] anxiety disorder : care instructions RUY Not available 11/26/2016 08:59:17 Patient understands instructions and will seek medical attention if symptoms worsen as directed. Not available 11/24/2016 11:15:50 Reason for Referral [...] Address Organization Details Recorded Time Anxiety disorder 053427938 Active EDIE Ferrell [address], [place], [address] , [facility], [facility] 6 10:35:43 Generalized anxiety disorder 25025875 Active 2016 YANCI Dueñas [address], [place], [address] , [facility], [facility] 7 08:19:50 Problem Notes None recorded. Procedures [...] Name and Address Organization Details Recorded Time 766819 Substance with sulfonami de structure and antibacte rial mechanism of action (substanc e) medicatio n rash moderate Not available 10/19/2015 56821 8003 SNOMED Olga Bagley [facility], [facility] 6 10:07:08 Medications Name Sig Start Date [...] Updated DateTime 6 190.5 cm 16 /min 248568. 2451 g 28.7 kg/m2 60 /min 104 mm[Hg] 60 mm[Hg] Olga Bagley [facility], [facility] 6 10:10:08 Date Recorded Respiratory rate Body height Heart rate Body weight Body mass index (BMI) Systolic blood pressure Diastolic blood pressure Provider Name and Address Organization Details Last Updated DateTime 6 16 /min 190.5 cm 76 /min 148623. 24284 g 28.4 kg/m2 122 mm[Hg] 78 mm[Hg] Olga Bagley [facility], [facility] 6 10:43:34 Date Recorded Body mass index (BMI) Heart rate Body height Body temperature Respiratory rate Oxygen saturation Oxygen saturation in Arterial blood by Pulse oximetry Body weight Systolic blood pressure Diastolic blood pressure Provider Name and Address Organization Details Last Updated DateTime 6 28.2 kg/m2 66 /min 190.5 cm 97.4 [degF] 20 /min 97 % 97 % 336997. 43443 g 130 mm[Hg] 80 mm[Hg] Alanis Cary [facility], [facility] 6 09:56:42 Date Recorded Body height Respiratory rate Body weight Body mass index (BMI) Heart rate Systolic blood pressure Diastolic blood pressure Provider Name and Address Organization Details Last Updated DateTime 7 190.5 cm 16 /min 197840. 51 g 27.7 kg/m2 76 /min 108 mm[Hg] 82 mm[Hg] Olga Kevyn [facility], [facility] 7 13:18:18 Date Recorded Body height Body weight Body mass index (BMI) Heart rate Respiratory rate Oxygen saturation Oxygen saturation in Arterial blood by Pulse oximetry Systolic blood pressure Diastolic blood pressure Provider Name and Address Organization Details Last Updated DateTime 7 190.5 cm 130344. 22 g 27.8 kg/m2 70 /min 16 /min 97 % 97 % 134 mm[Hg] 80 mm[Hg] Yasmin Campoverde [facility], [facility] 7 08:12:08 Social History Question Answer Notes LastModified by [employer] Details LastModified Time Tobacco Smoking Status Never Smoker Olga Kevyn gonzalez [facility], [facility] 10/19/2015 10:07:07 Do You Have An Advance Directive? No [email or web address] Information not available 02/16/2016 How Much Tobacco Do You Chew? None Information not available 11/24/2016 Which Illicit Or Recreational Drugs Have You Used? N/a Information not available 11/24/2016 Education 12 Information no t available 11/24/2016 Marital Status [email or web address] Informati on not available 02/16/2016 How Much Tobacco Do You Smoke? No Information not available 11/24/2016 Sex: Unknown Functional Status Question Answer Note LastModified by [employer] Details LastModified Time What is your level of alcohol consumption? 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 Moderate [email or web address] Information not available 02/16/2016 Mental Status None recorded. Family History Relationship Description Onset Age of this Age Resolved Age Notes LastModified by Organization Details LastModified Time Father No current problems or disability Not available 11/06 08:13:27 Mother No current [...] SNOMED-CT Code Diagnosis ICD10 Code Diagnosis Note [id number] EDIE Ferrell E [address] [place] [address] 10/19/2015 09:48:03 10/19/2015 10:47:13 Vitamin D deficiency 04072923 E55.9 he prefers I go an rx for the Vit Dl Hyperlipidemia 34591313 E78.5 will adhere to a low fat diet this year and recheck in a year. [id number] MD WAN Lentz E [address] [place] [address] 11/17/2015 10:34:28 11/17/2015 11:25:51 Anxiety disorder 552635263 F41.9 pt has medication at home which addresses problem [id number] EDIE Ferrell E [address] [place] [address] 02/16/2016 09:42:14 02/16/2016 10:45:23 Chest pain 95850360 R07.9 Anxiety disorder 4676411 06 F41.9 it is possible he is having anxiety. [id number] YANCI Dueñas [facility] [address] [place] [address] 11/24/2016 08:07:32 11/24/2016 08:48:39 Generalized anxiety disorder 55585755 F41.1 Patient here today for ongoing treatment [...] pression with the goal of discontinu ing keno terminal operator use of ativan once optimal therapy reached. [...] None Recorded Advance Directives Directive N: Payers Insurance Date Sequence Insurance Name Policy Number Policy Carranza Covered Member ID Carranza Member ID Guarantor Name 11/22/2016 1 [facility] [id number] Roman Marina [id number] Roman Marina Notes Date Note Type Note Provider Name and Address Organization Details Recorded Time 10/19/2015 text/html pt is here for review of labs, he has low Vit D and mildly elevated lipids, he is healthy vitals as noted are normal EDIE Ferrell [address], [place], [address], [facility] - [facility] 10/19/2015 10:42:50 11/17/2015 text/html AnxietyReported bypatient.Reason for visit:exacerbation of chronic complaint Anxiety Type:episodic anxiety Quality:nervous;agit ated Severity:moderate 5/10 Onset/Timing:abrupt; 3 years ago Context:major life stressors;trouble at work Alleviating factors:medication Associated Symptoms:denies suicidal ideations;sleep disturbances [facility] 11/17/2015 11:21:42 02/16/2016 text/html Chest PainReport ed [...] 3 yrs. He would like to see participant administrator. EDIE Ferrell [address], [place], [address], [facility], [facility] 02/16/2016 10:36:04 11/24/2016 text/html AnxietyReported bypatient.Reason for [...] of interest in normal activities. YANCI Dueñas [address], [place], [address], [facility] 11/24/2016 11:19:25
--- OUTSIDE RECORDS SUMMARY | 2024-12-20 14:52 | XMS_ITS | Encounter Summary ---
Author Organization [facility] Address [address] [place] [address] Care Team Providers Care Firer Helper Name Role Phone Jeri Lam MD Primary Care Provider Unavail able Rudolph Barrett Primary Care Provider [phone] Ceferino Ross MD Primary Care Provider Encounter Details Date Type Department Care Team Description 10/19/2018 Release of Information Medical Records [address] [place] [id number] Abstract, Provider Social History Tobacco Use Types Packs/Day Years [...] on filedocumented in this encounter Care Teams Firer Helper Relationship Specialty Start Date End Date Jeri Lam MD PCP - General Internal Medicine 09/04/18 12/07/21 Rudolph Barrett [address] [place] [address] [id number] PCP - General Internal Medicine 12/08/21 05/04/22 Ceferino Ross MD [address] [place] [address] [id number] PCP - General Internal Medicine 05/05/22 documented as of this encounter
--- OUTSIDE RECORDS SUMMARY | 2024-12-20 14:52 | XMS_ITS | Data Portability ---
Author Organization [place] [facility] [place] Address [address] [place] [address] Care Team Providers Care Cardiopulmonary Technician And Eeg Tech Name Role Phone [facility] Primary Care Provide r Assessment Encounter [...] swelling gets worse, aspiration will be considered. [email or web address] Not available 01/23/2023 10:28:22 01/27/2023 01/27/2023 Roman [...] he will follow-up after his trip to [place]. [email or web address] Not available 01/27/2023 16:57:41 Plan of Treatment Reminders Order Date Submit Date Provider Last Modified By Organization Details Last Modified Time Details Appointments None recorded. Lab None recorded. Referral None recorded. Procedures None recorded. Surgeries None recorded. Imaging XR, knee, 3 view 2022 023 [email or web address] [facility], [address], [place], [address], 13:16:06 Medication Orders prednisone 10 mg tablet 2022 023 [facility] #[id number], [address] [facility], [place], [address], 10:21:46 Patient TargetsNo targets recorded. Patient Instructions Encounter Date Encounter Id Patient Instructions Last Modified By Organization Details Last Modified Time 01/23/2023 [id number] views of the {{Left* Right}} knee were obtained in the {{[place]* Vinod} } office including AP, lateral (weightbearing), and sunrise were obtained in the [place] office. X-rays demonstrated normal bony mineralization mildly decreased medially. No evidence of acute injury or fracture. Findings: Normal knee x-ray X-ray interpretation by: Leif Selby PA-C [email or web address] Not available 01/23/2023 10:28:05 Reason for Referral None Reported. Problems Name Problem SNOMED Code Status Onset Date Resolution Date Notes Provider Name and Address Organization Details Recorded Time Effusion of joint of left knee 649431489454166 Active [address], [place], [address], [place] [facility], [facility] 3 10:20:50 Pain of left knee joint 850802319649069 Active [address], [place], [address], [place] [facility], [facility] 3 10:25:32 Problem Notes None recorded. [...] Updated DateTime 01/23/2023 190.5 cm 30 kg/m2 194377.17 g Kristina Torres [place] - [facility], [facility] 01/23/2023 09:31:39 Date Recorded Body height Body mass index (BMI) Body weight Provider Name and Address Organization Details Last Updated DateTime 01/27/2023 190.5 cm 30 kg/m2 994596.17 g Vinod Kerr [place] - [facility] 01/27/2023 09:38:30 Social History None recorded. Functional Status Question Answer Note LastModified by Organizat ion Details LastModified Time Do you use any illicit or recreational drugs? No [email or web address] Information not available 01/23/2023 Do you or have you ever used any other forms of tobacco or nicotine? No Information not available 01/23/2023 What is your level of alcohol consumption? None [email or web address] Information not available 01/23/2023 Mental Status None recorded. Family History Nothing Reported. Medical History No medical history recorded. Past Encounters Encounter ID Performer Location Encounter Start Date Encounter Closed Date Diagnosis/Indication Diagnosis SNOMED-CT Code Diagnosis ICD10 Code Diagnosis Note [id number] [address] [facility] [address] [place] [address] [place] [address] 01/23/2023 09:20:22 01/23/2023 10:29:55 Pain of left knee joint 8488198675 45580 M25.562 Effusion o f joint of left knee 5193745674 34028 M25.462 [id number] [address] [place] [address] 01/27/2023 09:33:53 01/27/2023 10:08:30 Effusion of joint of left knee 6529749179 12445 M25.462 Health Concerns Section Related Observation LastModified by Organization Detai ls LastModified Time None Recorded Concern Status LastModified by Organization Details LastModified Time None Recorded Advance Directives Directive None Recorded Payers Encounter Date Sequence Insurance Name Policy Number Policy Carranza Covered Member ID Carranza Member ID Guarantor Name 01/23/2023 1 [employer] - CHOICE (POS II) [id number] Roman Marina [id number] Roman Marina 01/27/2023 1 [employer] - CHOICE (POS II) [id number] Roman Marina [id number] Roman Marina Notes Date Note Type [...] fever or chills. No redness or warmth. [address], [place], [address], [place] [facility], [facility] 01/23/2023 10:28:47 01/27/2023 text/html Patient has been noting some improvement since his last visit. He is now able to bend his knee since Monday. He is still sore by the end of the day. He is still taking his prednisone. He is leaving for a trip to [place] and will be gone next week. [address], [place], [address], [place] [facility], [facility] 01/27/2023 16:58:05
--- OUTSIDE RECORDS SUMMARY | 2024-12-20 14:52 | XMS_ITS | Encounter Summary ---
Author Organization [facility] Address [address] [place] [address] Care Team Providers Care Balling Head Tender Name Role Phone Jeri Lam MD Primary Care Provider Unavail able Rudolph Barrett Primary Care Provider [phone] Ceferino Ross MD Primary Care Provider Encounter Details Date Type Department Care Team Description 02/27/2019 Yardage Estimator Report Medical Records [address] [place] [address] Judit Arteaga NP Social History Tobacco Use [...] on filedocumented in this encounter Care Teams Balling Head Tender Relationship Specialty Start Date End Date Jeri Lam MD PCP - General Internal Medicine 09/04/18 12/07/21 Rudolph Barrett [address] [place] [address] [id number] PCP - General Internal Medicine 12/08/21 05/04/22 Ceferino Ross MD [address] [place] [address] [id number] PCP - General Internal Medicine 05/05/22 documented as of this encounter
[2024-12-20 14:55] VITALS: PULSE 86; O2SAT 98
--- NOTE | 2024-12-20 14:55 | MHC.OFFVIS ---
Vital Signs 12/20/24 14:55 Pulse 86 Pulse Source Pulse Oximeter Pulse Oximetry (%) 98 Intake Visit Reasons: MAT Allergies No Known Allergies Allergy (Verified 12/24/24 16:49) HPI HPI MAT: Details: He feels somewhat discouraged. He says we are wasting his time. He wants a counseling visit. [facility] Medical History Hepatosplenomegaly Alcoholic fatty liver History of alcohol abuse Kidney cysts Liver cyst Abdominal pain Establishing care with new doctor, encounter for Occasional tremors Chest wall pain Scleral icterus Dizziness Family History Father No problems noted. Mother No problems noted. Social History Housing: Apartment Alcohol intake: current Alcohol intake frequency: 3 or more drinks per day Alcohol type: hard liquor Patient Tobacco Use Status: Never used Tobacco service: No Current occupational status: employed Cognitive needs: No Hearing needs: No Vision needs: No Physical Exam Vital Signs: Last Vital Signs Pulse 86 12/20/24 14:55 Pulse Ox 98 12/20/24 14:55 Const General: cooperative Assessment & Plan Assessment & Plan (1) History of alcohol abuse: Comment: He is feeling poorly,withdrawal Code(s): F10.11 - Alcohol abuse, in remission Category: Medical Plan: Counseling Naltrexone Vitamins (2) Alcoholic fatty liver: Code(s): K70.0 - Alcoholic fatty liver Category: Medical Plan: na Medications: New ondansetron 4 mg PO Q8H PRN 10 tabs 0RF nausea and vomiting naltrexone 50 mg PO DAILY 30 days 30 tabs 0RF thiamine HCl (vitamin B1) 100 mg PO DAILY 30 days 30 caps 0RF folic acid 1 mg PO DAILY 30 days 30 tabs 0RF Coding Level of Care Code Est Pt Level 3 (63794) Diagnoses History of alcohol abuse F10.11 Alcoholic fatty liver K70.0
== END 2024-12-20 16:02 | disposition home or self-care (01) ==
LOC: HO.HCC 14:49
PROVIDERS: PCP Internal Medicine; Visit Provider Internal Medicine
DX: F10.11 Alcohol abuse, in remission (principal); K70.0 Alcoholic fatty liver
CPT/HCPCS: 99213

== ENCOUNTER 2024-12-24 14:25 | Outpatient (AMB) | payer OTHER, SELFPAY ==
--- NOTE | 2024-12-24 14:42 | A.OFFPC_ITS ---
Vital Signs 12/24/24 14:44 Height 6 ft 1 in Weight 229 lb BMI 30.2 BP 124/79 Pulse 74 Pulse Source Pulse Oximeter Temp 97.6 F Temp Source Temporal Artery Scan Pulse Oximetry (%) 99 Oxygen Delivery Method Room Air Intake Visit Reasons: follow up Test And Balance Engineer Required: No Accompanied by: Self / Same As Patient Allergies No Known Allergies Allergy (Verified 12/24/24 16:49) Medication List - Last Reconciled 12/24/24 by Anette Crowe PA-C mecobalamin (vitamin B12) 1,000 mcg PO DAILY 90 days naltrexone 50 mg PO DAILY 90 days thiamine HCl (vitamin B1) 100 mg PO DAILY 90 days Tobacco use date assessed: 12/24/24 Dental Screening Dental Screen Date: 11/27/24 HPI follow up HPI Details The patient is a 44-year-old male presenting for a follow-up regarding his alcohol use disorder and associated health concerns, notably abdominal pain. Patient's last visit he was having dizziness, chest wall pain, tremors and he was noted to have elevated liver enzymes with a bilirubin of 4.0. He was referred to the emergency department where he had an abdominal ultrasound, abdominal CT scan which revealed hepatosplenomegaly and hepatic steatosis. Nonspecific cystic lesions in the right hepatic lobe. No intrahepatic or extrahepatic biliary ductal dilation. Probable mild enteritis. Small cystic lesion right kidney. Otherwise no acute processes were noted. He was sent home with 4 days of diazepam for acute alcohol withdrawal and naltrexone for relapse prevention. Patient reports after being discharged from the hospital he sustained alcohol free for a few days then he relapsed for 2 days. After a two- day alcohol relapse, the patient experienced a resurgence in symptoms, which subsided after 11 days of abstinence. He reports he was seen by Dr. Annabella Driscoll MD and was prescribed hydroxyzine, clonidine, Zofran, thiamine, vitamin B12 although he was unsure exactly why. He reports that the hydroxyzine did not make him feel well and the clonidine also did not make him feel well therefore he discontinued that. He is unsure if he is supposed to continue taking the thiamine a vitamin B12. The patient reports persistent abdominal pain in the rib area, ongoing for a week, impairing his ability to sleep on his side. He denies accompanying gastrointestinal symptoms post-relapse. Social History - Reports recent cessation of alcohol co nsumption with a duration of sobriety spanning 11 days. - Previously experienced anxiety, notabl y surrounding alcohol withdrawal. - Expresses a commitment to dietary zuleta ges, including consuming nuts and seeds to support liver health. [facility] Medical History (Updated 12/24/24 @ 16:56 by Anette Crowe PA-C) Hepatosplenomegaly Alcoholic fatty liver History of alcohol abuse Kidney cysts Liver cyst Abdominal pain Establishing care with new doctor, encounter for Occasional tremors Chest wall pain Scleral icterus Dizziness Family History Father No problems noted. Mother No problems noted. Social History Housing: Apartment Alcohol intake: current Alcohol intake frequency: 3 or more drinks per day Alcohol type: hard liquor Patient Tobacco Use Status: Never used Tobacco service: No Current occupational status: employed Cognitive needs: No Hearing needs: No Vision needs: No Questionnaire PHQ-9 Over the last 2 weeks, how often have you been bothered by any of the following problems? 1. Little interest or pleasure in doing things: not at all 2. Feeling down, depressed, or hopeless: not at all 3. Trouble falling or staying asleep, or sleeping too much: not at all 4. Feeling tired or having little energy: not at all 5. Poor appetite or overeating: not at all 6. Feeling bad about yourself - or that you are a failure or have let yourself or your family down: not at all 7. Trouble concentrating on things, such as reading the newspaper or watching television: not at all 8. Moving or speaking so slowly that other people could have noticed. Or the opposite - being so fidgety or restless that you have been moving around a lot more than usual: not at all 9. Thoughts that you would be better off or of hurting yourself in some way: not at all Total score: 0 Depression Screening Interpretation: Negative Depression Screening Done: Yes 97335 - PHQ-9 Billing: Yes Source: Developed by Drs. Darien Smith, Danisha Mandujano, Willi Cheema and colleagues, with an educational jessica from [employer]. Thrive Questionnaire Date Thrive assessed: 11/27/24 I am a: Patient What is your living situation today?: I have a steady place to live Within the past 12 months, did the food you bought not last and you didn't have the money to get more?: Never true Within the past 12 months, did you worry whether your food would run out before you got money to buy more?: Never true Do you have trouble paying for medicines?: No Do you have trouble getting transportation to medical appointments?: No Do you have trouble paying your heating and electricity bill?: No Do you have trouble taking care of your child, family member or friend?: No Do you have trouble with day-to-day activities such as bathing, preparing meals, shopping, managing finances, etc.?: No Are you currently unemployed and looking for a job?: No Are you interested in more education?: No Please select the resources that you would like help with: None THRIVE Score: 0 AUDIT C Alcohol Use Questionnaire (AUDIT-C) 1. How often do you have a drink containing alcohol?: 4 or more times a week 2. How many drinks containing alcohol do you have on a typical day when you are drinking?: 1 or 2 3. How often do you have six or more drinks on one occasion?: Never Total Score: 4 Score Reviewed/Action Taken: Yes CARIN-7 AMB Questionnaire CARIN-7 Date CARIN - 7 assessed: 11/27/24 Feeling nervous, anxious, or on edge: 0 = Not at all Not being able to stop or control worryin = Not at all Worrying too much about different things: 0 = Not at all Trouble relaxin = Not at all Being so restless that it is hard to sit still: 0 = Not at all Becoming easily annoyed or irritable: 0 = Not at all Feeling afraid as if something awful might happen: 0 = Not at all Total CARIN-7 score (0-4 normal; 5-9 mild; 10-14 moderate; 15-21 severe): 0 Source: Developed by Drs. Darien Smith, Danisha Mandujano, Willi Cheema and colleagues, with an educational jessica from [email or web address] CARIN-7 Assessment Billing CARIN-7 Assessment Tool: CARIN-7 Assessment 97488 Review of Systems Const Details: - Constitutional: Reports feeling better, denies dizziness. - Gastrointestinal: Reports abdominal pain in the ribcage area; denies nausea, vomiting, or changes in appetite currently. - Neurological: Denies tremors. - Psychiatric: Denies depression, reports some anxiety managed with naltrexone. Physical exam (Primary Care) Vital Signs: Last Vital Signs Temp 97.6 F 12/24/24 14:44 Pulse 74 12/24/24 14:44 BP 124/79 12/24/24 14:44 Pulse Ox 99 12/24/24 14:44 Oxygen Delivery Method Room Air 12/24/24 14:44 Care Plan Goal for BP management: <140/90 at Goal BMI result Body Mass Index 30.2 Tobacco/Smoking Status: Tobacco use Status Tobacco use date assessed 12/24/24 12/24/24 14:51 Patient Tobacco Use Status Never used Tobacco 12/24/24 14:51 PHQ-9: PHQ-9 Score PHQ-9: Total score 0 12/24/24 16:34 Depression Screening Interpretation: Negative Thrive Assessment: Date of Thrive Assessment Date Thrive assessed 11/27/24 12/24/24 14:51 Const Other: Appearance: Alert. Oriented X3. No acute distress. Head: Normal external exam. Normocephalic. Atraumatic. Eyes: Pupils are equal, round, and reactive to light. Extraocular movements intact. Conjunctiva and sclera normal. Eyelids normal. Throat: Pharynx normal. Uvula midline. Moist mucous membranes. Neck: Normal inspection. Neck supple. Full range of motion. Cardiovascular: Normal heart rate and rhythm. Heart sound normal. No murmurs noted. Pulses normal throughout. Respiratory: No respiratory distress. Painless inspiration. Breath sounds normal. No wheezes/rales/rhonchi noted. Chest nontender. No accessory muscle usage noted or decreased air movement noted. Abdomen: Soft and mild tenderness to the right upper quadrant/right flank.. Bowel sounds normal in all 4 quadrants. No distention noted. No organomegaly noted. Tenderness noted in the right upper quadrant, possibly related to cystic lesions on the liver and right kidney. Back: No costovertebral angle tenderness. Full range of motion noted. Skin: Skin warm and dry. Normal skin color. Normal skin turgor. No rashes/lesions/lacerations noted. Slight yellowing of the eyes noted, but improving. Extremities: No lower extremity edema. Extremities exhibit normal range of motion. Extremities nontender. Neuro: Oriented X 3. No motor deficit. No sensory deficit. Reflexes normal. Results Reviewed Results Reviewed: - Imaging Studies: Previously identified cystic lesions on liver and right kidney, and hepatomegaly. - Labs: Borderline vitamin B12 levels; vitamin B1 deficiency unspecified. Coding Level of Care Code Est Pt Level 4 (28009) Complex EM visit Add On G2211 Diagnoses Abdominal pain R10.9 Liver cyst K76.89 Kidney cysts N28.1 History of alcohol abuse F10.11 Alcoholic fatty liver K70.0 Hepatosplenomegaly R16.2 Additional Codes CARIN-7 Assessment Billing - CARIN-7 Assessment Tool: CARIN-7 Assessment 87694 ([id number]) PHQ-9 - 57972 - PHQ-9 Billing: Yes ([id number]) Assessment & Plan Assessment & Plan (1) Abdominal pain: Code(s): R10.9 - Unspecified abdominal pain Category: Medical Plan: Will repeat liver enzymes/labs. Refer to GI. Patient instructed to go to the ER if abdominal pain worsens. Condition is chronic and stable continue to m onitor. (2) Liver cyst: Code(s): K76.89 - Other specified diseases of liver Category: Medical Plan: Will refer to GI for liver cyst. Condition is stable will continue to monitor. (3) Kidney cysts: Code(s): N28.1 - Cyst of kidney, acquired Category: Medical Plan: Will refer to Urology for kidney cyst. Condition is stable will continue to monitor. (4) History of alcohol abuse: Code(s): F10.11 - Alcohol abuse, in remission Category: Medical Plan: Continue naltrexone and aim for complete abstinence with additional monitoring. Consider specialist referrals for comprehensive support in addiction management. Condition is chronic and stable patient has been sober for 11 days. Will continue to monitor. (5) Alcoholic fatty liver: Code(s): K70.0 - Alcoholic fatty liver Category: Medical Plan: Patient to continue naloxone and aim for complete abstinence with additional monitoring. Will refer to GI. Condition is chronic and stable continue to monitor. (6) Hepatosplenomegaly: Code(s): R16.2 - Hepatomegaly with splenomegaly, not elsewhere classified Category: Medical Plan: Implement dietary changes to reduce consumption of oils and fats, and plan for repeat liver enzyme assessments. Condition is chronic and stable continue to mo nitor. Plan Plan Patient was informed and verbally consented to the use of an ambient scribe for clinic note documentation during this visit. 1. Alcohol Use Disorder Continue naltrexone and aim for complete abstinence with additional monitoring. Consider specialist referrals for comprehensive support in addiction management. 2. Fatty Liver Disease Implement dietary changes to reduce consumption of oils and fats, and plan for repeat liver enzyme assessments. 3. Vitamin B12 Deficiency Continue vitamin B12 and B1 supplements, with a future reassessment planned post-sobriety. 4. Hypertension Monitor blood pressure closely and evaluate alternative medication options to reduce potential side effects. 5. Anxiety Consider psychiatric referral for further evaluation of anxiety management and avoid reliance on potentially addictive anxiolytics. I discussed with the patient the importance of adhering strictly to naltrexone to support alcohol abstinence. We reviewed the findings from previous imaging that revealed cystic formations on both liver and kidney, elaborating on the need for follow-up with a stripper printed circuit boards to assess these findings further. The potential link between his alcohol consumption history and fatty liver disease was emphasized, with the provision of dietary guidance aimed at minimizing progression of the condition. The significance of maintaining sobriety to improve overall health status was stressed. We also discussed the role of vitamin supplementation in supporting recovery from potential deficiencies exacerbated by alcohol use. Finally, concerns about anxiety management were acknowledged, with recommendations to explore further psychiatric support tailored to his needs. Follow-up blood tests were ordered to re-evaluate liver function and vitamin levels, while I facilitated a referral to a GI specialist for ongoing monitoring. Orders: Orders Comprehensive Met. Panel Today Z00.00 - Encounter for general adult medical examination without abnormal findings Lipase Today R10.9 - Unspecified abdominal pain Referrals Gastroenterology Referral F10.11 - Alcohol abuse, in remission, K76.89 - Other specified diseases of liver, N28.1 - Cyst of kidney, acquired, R10.9 - Unspecified abdominal pain Medications: Changed From mecobalamin (vitamin B12) 1,000 mcg PO DAILY 30 tabs 0RF 30 days To mecobalamin (vitamin B12) 1,000 mcg PO DAILY 90 tabs 1RF 90 days From naltrexone take 1/2 tab (25 mg) per day x3 days then a full tab per day 50 mg PO DAILY 30 tabs 0RF 30 days To naltrexone 50 mg PO DAILY 90 tabs 1RF 90 days From thiamine HCl (vitamin B1) 100 mg PO DAILY 5 caps 0RF 5 days To thiamine HCl (vitamin B1) 100 mg PO DAILY 90 caps 1RF 90 days Patient Instructions: - Continue taking naltrexone as prescribed. - Avoid alcohol consumption completely. - Follow a low-fat, low-oil diet to support liver health. - Take vitamin B12 and B1 supplements as instructed. - Get blood work done as advised to check liver function and vitamin levels. - Follow up with a GI doctor as planned. - Return for a follow-up appointment in one month to discuss any changes or improvements. - Report any worsening pain or symptoms to a healthcare provider immediately.
[2024-12-24 14:44] VITALS: BP 124/79; PULSE 74; TEMP 36.4; O2SAT 99; BMI 30.2
--- OUTSIDE RECORDS SUMMARY | 2024-12-24 15:49 | XMS_ITS | Encounter Summary ---
Author Organization [facility] Address [address] [place] [address] Care Team Providers Care Senior Account Executive Name Role Phone Jeri Lam MD Primary Care Provider Unavail able Rudolph Barrett Primary Care Provider [phone] Ceferino Ross MD Primary Care Provider Encounter Details Date Type Department Care Team Description 10/19/2018 Release of Information Medical Records [address] [place] [id number] Abstract, Provider Social History Tobacco Use Types [...] on filedocumented in this encounter Care Teams Senior Account Executive Relationship Specialty Start Date End Date Jeri Lam MD PCP - General Internal Medicine 09/04/18 12/07/21 Rudolph Barrett [address] [place] [address] [id number] PCP - General Internal Medicine 12/08/21 05/04/22 Ceferino Ross MD [address] [place] [address] [id number] PCP - General Internal Medicine 05/05/22 documented as of this encounter
--- OUTSIDE RECORDS SUMMARY | 2024-12-24 15:49 | XMS_ITS | Encounter Summary ---
Author Organization [facility] Address [address] [place] [address] Care Team Providers Care Farm Appraiser Name Role Phone Jeri Lam MD Primary Care Provider Unavail able Rudolph Barrett Primary Care Provider [phone] Ceferino Ross MD Primary Care Provider Encounter Details Date Type Department Care Team Description 02/27/2019 Stretcher And Drier Report Medical Records [address] [place] [id number] Judit Arteaga NP Social History Tobacco Use [...] on filedocumented in this encounter Care Teams Farm Appraiser Relationship Specialty Start Date End Date Jeri Lam MD PCP - General Internal Medicine 09/04/18 12/07/21 Rudolph Barrett [address] [place] [address] [id number] PCP - General Internal Medicine 12/08/21 05/04/22 Ceferino Ross MD [address] [place] [address] [id number] PCP - General Internal Medicine 05/05/22 documented as of this encounter
--- OUTSIDE RECORDS SUMMARY | 2024-12-24 15:49 | XMS_ITS | Data Portability ---
Author Organization [place] [facility] [place] Address [address] [place] [address] Care Team Providers Care Kindergarten Teacher Name Role Phone [facility] Primary Care Provide r Assessment [...] swelling gets worse, aspiration will be considered. [email or web address] Not available 01/23/2023 10:28:22 01/27/2023 01/27/2023 Roman [...] he will follow-up after his trip to [place]. [email or web address] Not available 01/27/2023 16:57:41 Plan of Treatment Reminders Order Date Submit Date Provider Last Modified By Organization Details Last Modified Time Details Appointments None recorded. Lab None recorded. Referral None recorded. Procedures None recorded. Surgeries None recorded. Imaging XR, knee, 3 view 2022 023 [email or web address] 21 [facility] [place] [facility], [address], [place], [address], 13:16:06 Medication Orders prednisone 10 mg tablet 2022 023 [id number], [address] [facility], [place], [address], 10:21:46 Patient TargetsNo targets recorded. Patient Instructions Encounter Date Encounter Id Patient Instructions Last Modified By Organization Details Last Modified Time 01/23/2023 [id number] 3 views of the {{Left* Right}} knee were obtained in the {{[facility]* Vinod} } office including AP, lateral (weightbearing), and sunrise were obtained in the [facility]. X-rays demonstrated normal bony mineralization mildly decreased medially. No evidence of acute injury or fracture. Findings: Normal knee x-ray X-ray interpretation by: Leif Selby PA-C [email or web address] Not available 01/23/2023 10:28:05 Reason for Referral None Reported. Problems Name Problem SNOMED Code Status Onset Date Resolution Date Notes Provider Name and Address Organization Details Recorded Time Effusion of joint of left knee 035167453767461 Active [address], [place], [address], [place] [facility] [place], [facility] 3 10:20:50 Pain of left knee joint 042714732496691 Active [address], [place], [address], [place] [facility] [place], [facility] 3 10:25:32 Problem Notes None recorded. [...] Updated DateTime 01/23/2023 190.5 cm 30 kg/m2 993437.17 g Kristina Torres [place] [facility] [place] 01/23/2023 09:31:39 Date Recorded Body height Body mass index (BMI) Body weight Provider Name and Address Organization Details Last Updated DateTime 01/27/2023 190.5 cm 30 kg/m2 685310.17 g Vinod Kerr [place] [facility] [place] 01/27/2023 09:38:30 Social History None recorded. Functional Status Question Answer Note LastModified by Organizat ion Details LastModified Time Do you use any illicit or recreational drugs? No [email or web address] Information not available 01/23/2023 Do you or have you ever used any other forms of tobacco or nicotine? No Information not available 01/23/2023 What is your level of alcohol consumption? None [email or web address] Information not available 01/23/2023 Mental Status None recorded. Family History Nothing Reported. Medical History No medical history recorded. Past Encounters Encounter ID Performer Location Encounter Start Date Encounter Closed Date Diagnosis/Indication Diagnosis SNOMED-CT Code Diagnosis ICD10 Code Diagnosis Note [id number] [address] [facility] [address] [place] [address] [place] [phone] 01/23/2023 09:20:22 01/23/2023 10:29:55 Pain of left knee joint [id number] 60655 M25.562 Effusion o f joint of left knee 9533782960 67466 M25.462 [id number] [address] [place] [phone] 01/27/2023 09:33:53 01/27/2023 10:08:30 Effusion of joint of left knee 3951775138 94228 M25.462 Health Concerns Section Related Observation LastModified by Organization Detai ls LastModified Time None Recorded Concern Status LastModified by Organization Details LastModified Time None Recorded Advance Directives Directive None Recorded Payers Encounter Date Sequence Insurance Name Policy Number Policy Carranza Covered Member ID Carranza Member ID Guarantor Name 01/23/2023 1 [employer] - CHOICE (POS II) [id number] Roman Marina [id number] Roman Marina 01/27/2023 1 [employer] - CHOICE (POS II) [id number] Roman Marina [id number] Roman Marina Notes Date Note Type [...] redness or warmth. [address], [place], [address], [place] [facility] [place] 01/23/2023 10:28:47 01/27/2023 text/html Patient has been noting some improvement since his last visit. He is now able to bend his knee since Monday. He is still sore by the end of the day. He is still taking his prednisone. He is leaving for a trip to [place] and will be gone next week. [address], [place], [address], [place] [facility] [place] 01/27/2023 16:58:05
--- OUTSIDE RECORDS SUMMARY | 2024-12-24 15:49 | XMS_ITS | Data Portability ---
Author Organization [place] - [facility], [facility] Address [address] [place] [address] Care Team Providers Care Gre Tutor Name Role Phone CHERELLE SALGADO Primary Care Provider CHERELLE SALGADO Referring Provider Assessment Encounter Date Assessment Date Assessment LastModified by Organization Details LastModified Time 11/24/2016 11/24/2016 HPI, ROS and physical assessment completed with plan as indicated below. Not available 11/24/2016 11:16:10 Plan of Treatment Reminders Order Date Submit Date Provider Last Modified By Organization Details Last Modified Time Details Appointments None recorded. Lab TSH, serum or plasma 2016 017 [email or web address] [facility], [address] [place], [address], 7 10:41:37 CMP, serum or plasma 2016 017 [facility], [address] [place], [address], 7 10:41:37 CBC 2016 017 [email or web address] [facility], [address] [place], [address], 7 10:41:37 urinalysis , complete 2016 017 RU[facility], [address], [place], [address], 7 08:27:53 Referral None recorded. Procedures None recorded. Surgeries None recorded. Imaging electrocar diogram 2015 016 In-Office Order, Internal Use Only DO Not Attach Compendium DO Not Attach Compendium, Do Not Delete/merge, [id number] 6 12:11:18 Medication Orders Ativan 1 mg tablet 2016 017 [id number], [address] [place], [address], 7 08:59:34 citalopram 10 mg tablet 2016 017 [id number], [address] [place], [address], 7 08:27:37 Ativan 1 mg tablet 2015 016 [id number], [address] [place], [address], 6 12:53:04 ergocalcif wie (vitamin D2) 1,250 mcg (50,000 unit) capsule 2015 016 [id number], [address] [place], [address], 7 13:18:44 Patient TargetsNo targets recorded. Patient Instructions Encounter Date Encounter Id Patient Instructions Last Modified By Organization Details Last Modified Time 10/19/2015 [id number] he is quite healthy will get regular exercise, rx for Vit D. recheck prn or 6 months Not available 10/19/2015 10:42:17 02/16/2016 [id number] initial EKG albeit incomplete has no definitive [...] cardiac assessment. Not available 02/16/2016 10:35:44 11/24/2016 [id number] anxiety disorder : care instructions RUY Not available 11/26/2016 08:59:17 Patient understands instructions and will seek medical attention if symptoms worsen as directed. [email or web address] Not available 11/24/2016 11:15:50 Reason for Referral [...] Address Organization Details Recorded Time Anxiety disorder [id number] Active EDIE Ferrell [address], [place], [address] , [facility], [facility] 6 10:35:43 Generalized anxiety disorder 68012359 Active 2016 YANCI Dueñas [address], [place], [address] , [facility], [facility] 7 08:19:50 Problem Notes None recorded. Procedures [...] Name and Address Organization Details Recorded Time 752479 Substance with sulfonami de structure and antibacte rial mechanism of action (substanc e) medicatio n rash moderate Not available 10/19/2015 [id number] SNOMED Olga Bagley [facility], [facility] 6 10:07:08 Medications Name Sig Start Date [...] Updated DateTime 6 190.5 cm 16 /min 236778. 2451 g 28.7 kg/m2 60 /min 104 mm[Hg] 60 mm[Hg] Olga Bagley [facility], [facility] 6 10:10:08 Date Recorded Respiratory rate Body height Heart rate Body weight Body mass index (BMI) Systolic blood pressure Diastolic blood pressure Provider Name and Address Organization Details Last Updated DateTime 6 16 /min 190.5 cm 76 /min 058149. 23027 g 28.4 kg/m2 122 mm[Hg] 78 mm[Hg] Olga Bagley [facility], [facility] 6 10:43:34 Date Recorded Body mass index (BMI) Heart rate Body height Body temperature Respiratory rate Oxygen saturation Oxygen saturation in Arterial blood by Pulse oximetry Body weight Systolic blood pressure Diastolic blood pressure Provider Name and Address Organization Details Last Updated DateTime 6 28.2 kg/m2 66 /min 190.5 cm 97.4 [degF] 20 /min 97 % 97 % 155660. 47172 g 130 mm[Hg] 80 mm[Hg] Alanis Cary [facility], [facility] 6 09:56:42 Date Recorded Body height Respiratory rate Body weight Body mass index (BMI) Heart rate Systolic blood pressure Diastolic blood pressure Provider Name and Address Organization Details Last Updated DateTime 7 190.5 cm 16 /min 091502. 51 g 27.7 kg/m2 76 /min 108 mm[Hg] 82 mm[Hg] Olga Kevyn [facility], [facility] 7 13:18:18 Date Recorded Body height Body weight Body mass index (BMI) Heart rate Respiratory rate Oxygen saturation Oxygen saturation in Arterial blood by Pulse oximetry Systolic blood pressure Diastolic blood pressure Provider Name and Address Organization Details Last Updated DateTime 7 190.5 cm 131649. 22 g 27.8 kg/m2 70 /min 16 /min 97 % 97 % 134 mm[Hg] 80 mm[Hg] Yasmin Campoverde [facility], [facility] 7 08:12:08 Social History Question Answer Notes LastModified by [email or web address] Details LastModified Time Tobacco Smoking Status Never Smoker Olga Kevyn gonzalez [facility], [facility] 10/19/2015 10:07:07 Do You Have An Advance Directive? No [email or web address] Information not available 02/16/2016 How Much Tobacco Do You Chew? None Information not available 11/24/2016 Which Illicit Or Recreational Drugs Have You Used? N/a Information not available 11/24/2016 Education 12 Information no t available 11/24/2016 Marital Status [email or web address] Informati on not available 02/16/2016 How Much Tobacco Do You Smoke? No Information not available 11/24/2016 Sex: Unknown Functional Status Question Answer Note LastModified by [email or web address] Details LastModified Time What is your level of alcohol consumption? 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 Moderate [email or web address] Information not available 02/16/2016 Mental Status None [...] N Thyroid Disease N Kidney Stones N Emphysema/COPD N Measles/Mumps N Sexually Transmitted Disease N Depression N Prostate Problems N Vascular Disease N Rash/Skin Condition N Amputation (location) N Parkinson's N Paralysis N Headaches/Migraines N Cardiac Pacemaker/defibrillator N Nerve Damage / Neuropathy N Arthritis N Sleep disorder/Insomnia N Heart disease / Heart Attack N Crohn's Disease N HIV/AIDS N Stroke/TIA N High Cholesterol N Colon Problems N Serious Injuries N Kidney Disease N [...] SNOMED-CT Code Diagnosis ICD10 Code Diagnosis Note [id number] EDIE Ferrell [address] [place] [address] 10/19/2015 09:48:03 10/19/2015 10:47:13 Vitamin D deficiency 58839041 E55.9 he prefers I go an rx for the Vit Dl Hyperlipidemia 70874759 E78.5 will adhere to a low fat diet this year and recheck in a year. [id number] MD WAN Lentz E [address] [place] [address] 11/17/2015 10:34:28 11/17/2015 11:25:51 Anxiety disorder 303356731 F41.9 pt has medication at home which addresses problem [id number] EDIE Ferrell E [address] [place] [address] 02/16/2016 09:42:14 02/16/2016 10:45:23 Chest pain 54324134 R07.9 Anxiety disorder 3401505 06 F41.9 it is possible he is having anxiety. [id number] YANCI Dueñas [facility] [address] [place] [address] 11/24/2016 08:07:32 11/24/2016 08:48:39 Generalized anxiety disorder 16067463 F41.1 Patient here today for ongoing treatment [...] pression with the goal of discontinu ing exterminator termite use of ativan once optimal therapy reached. [...] Carranza Member ID Guarantor Name 11/22/2016 1 [facility] [id number] Roman Marina [id number] Roman Marina Notes Date Note Type Note Provider Name and Address Organization Details Recorded Time 10/19/2015 text/html pt is here for review of labs, he has low Vit D and mildly elevated lipids, he is healthy vitals as noted are normal EDIE Ferrell [address], [place], [address], [facility] - [facility] 10/19/2015 10:42:50 11/17/2015 text/html AnxietyReported bypatient.Reason for visit:exacerbation of chronic complaint Anxiety Type:episodic anxiety Quality:nervous;agit ated Severity:moderate 5/10 Onset/Timing:abrupt; 3 years ago Context:major life stressors;trouble at work Alleviating factors:medication Associated Symptoms:denies suicidal ideations;sleep disturbances [facility] 11/17/2015 11:21:42 02/16/2016 text/html Chest PainReport ed [...] 3 yrs. He would like to see global security architect. EDIE Ferrell [address], [place], [address], [facility], Cued 02/16/2016 10:36:04 11/24/2016 text/html AnxietyReported bypatient.Reason for [...] of interest in normal activities. YANCI Dueñas [address], [place], [address], [facility] 11/24/2016 11:19:25
--- OUTSIDE RECORDS SUMMARY | 2024-12-24 15:49 | XMS_ITS | Clinical Summary ---
Author Organization [facility] Address [address] [place] [address] Care Team Providers Care Retail Sales Advisor Name Role Phone Ceferino Ross MD Primary Care Provider Allergies No known active allergies Medications Medication Sig Dispensed Refills Start Date End Date Status omeprazole (PRILOSEC) 40 MG capsule Take 1 Cap by mouth daily for 360 days. 30 Cap 11 10/17/2018 Active Diclofenac Sodium 1 % Gel Apply 2 g topically 4 times daily. Shoulder Pain 100 g 0 06/27/2023 Active Active Problems Problem Noted Date Obesity (BMI 30-39.9) 06/20/2022 Anxiety and depression 10/17/2018 Allergic rhinitis 10/02/2018 GERD (gastroesophageal reflux disease) 0 10/02/2018 Resolved Problems Problem Noted Date Resolved Date Depression 10/02/2018 10/17/2018 Anxiety 10/02/2018 10/17/2018 Immunizations Name Administration Dates Next Due Tdap 10/17/2018 Family History Medical History Relation Name Comments Stroke Father No Known Problems Mother cognenital heart defect Sister Relation Name Status Comments Father Alive Mother Alive Sister Social History Tobacco Use Types Packs/Day Years Used Date Smoking Tobacco: Never Smokeless Tobacco: Never Tobacco Cessation:Counseling Given: Not Answered Alcohol Use Standard Drinks/Week Comments Yes 0 (1 standard drink = 0.6 oz pur e alcohol) 10-14 drinks/week Sex Assigned at Date Recorded Not on file Job Start Date Occupation Industry Not on file Not on file Not on file Last Filed Vital Signs Vital Sign Reading Time Taken Comments Blood Pressure 120/60 08/10/2023 7:32 AM EST Pulse 82 08/10/2023 7:32 AM EST Temperature 36.4 ??C (97.6 ??F) 08/10/2023 7:32 AM ES T Respiratory Rate 17 08/10/2023 7:32 AM EST Oxygen Saturation 99% 06/20/2022 10:56 AM EST Inhaled Oxygen Concentration - - Weight 114.3 kg (252 lb) 08/10/2023 7:32 AM EST Height 190.5 cm (6' 3 ) 08/10/2023 7:32 AM EST Body Mass Index 31.5 08/10/2023 7:32 AM EST Plan of Treatment Health Maintenance Due Date Last Done Comments Covid-19 Vaccine (#1) 1980 BASELINE HEALTH EXAM 40-64 06/20/202406/20, 06/20/2022, 01/11/2019, Additional history exists BMI CHECK/ADVISE 08/07/2024 08/10/2023, 11/2023 (Completed), 06/27/2023, Additional history exists INFLUENZA (Season Ended) 2025 10/17/2018 (Refu sed) CHOLESTEROL SCREENING 06/20/2027 06/20/2022, 019 DTAP/TDAP/TD (2 - Td or Tdap) 10/17/2028 (Completed), 10/17/2018 PNEUMOCOCCAL VACCINE FOR HIG H RISK PATIENTS (#1) 2045 Care Teams Retail Sales Advisor Relationship Specialty Start Date End Date Ceferino Ross MD [address] [place] [address] [id number] PCP - General Internal Medicine 05/05/22
== END 2024-12-24 15:38 | disposition home or self-care (01) ==
LOC: HO.HMCSH 14:25
PROVIDERS: PCP Internal Medicine; Visit Provider Physician Assistant Medical
DX: R10.9 Unspecified abdominal pain (principal); K76.89 Other specified diseases of liver; N28.1 Cyst of kidney, acquired; F10.11 Alcohol abuse, in remission; K70.0 Alcoholic fatty liver; R16.2 Hepatomegaly with splenomegaly, not elsewhere classified

== ENCOUNTER → 2024-12-24 14:25 | Outpatient (BNVA) | payer OTHER, SELFPAY | PROVIDERS: PCP Internal Medicine; Visit Provider Physician Assistant Medical | DX: R10.9 Unspecified abdominal pain (principal); K76.89 Other specified diseases of liver; N28.1 Cyst of kidney, acquired; F10.11 Alcohol abuse, in remission; K70.0 Alcoholic fatty liver; R16.2 Hepatomegaly with splenomegaly, not elsewhere classified | CPT/HCPCS: 96127 ==

== ENCOUNTER 2024-12-25 11:36 | Outpatient (REF) | payer OTHER, SELFPAY ==
--- OUTSIDE RECORDS SUMMARY | 2024-12-25 12:56 | XMS_ITS | Encounter Summary ---
Author Organization [facility] Address [address] [place] [address] Care Team Providers Care Detective Bureau Chief Name Role Phone Jeri Lam MD Primary Care Provider Rudolph Pereira Primary Care Provider [phone] Ceferino Ross MD Primary Care Provider Encounter Details Date Type Department Care Team Description 11/08/2018 Telephone Gastroenterology - [place] [address] [place] [address] Red Sánchez MD [address] [place] [address] [id number] Social History Tobacco Use Types Packs/Day Years [...] on filedocumented in this encounter Care Teams Detective Bureau Chief Relationship Specialty Start Date End Date Jeri Lam MD PCP - General Internal Medicine 09/04/18 12/07/21 Rudolph Barrett [address] [place] [address] PCP - General Internal Medicine 12/08/21 05/04/22 Ceferino Ross MD [address] [place] [address] PCP - General Internal Medicine 05/05/22 documented as of this encounter
--- OUTSIDE RECORDS SUMMARY | 2024-12-25 12:56 | XMS_ITS | Encounter Summary ---
Author Organization [facility] Address [address] [place] [address] Care Team Providers Care Fusing Furnace Loader Name Role Phone Jeri Lam MD Primary Care Provider Unavail able Rudolph Barrett Primary Care Provider Ceferino Ross MD Primary Care Provider Reason for Visit * Reason Onset Date Comments Error 04/09/2019 Encounter Details Date Type Department Care Team Description 04/09/2019 Telephone Adult Medicine [address] [address] Jeri Lam MD Error Social History Tobacco [...] on filedocumented in this encounter Care Teams Fusing Furnace Loader Relationship Specialty Start Date End Date Jeri Lam MD PCP - General Internal Medicine 09/04/18 12/07/21 Rudolph Barrett [address] [place] [address] PCP - General Internal Medicine 12/08/21 05/04/22 Ceferino Ross MD [address] [place] [address] PCP - General Internal Medicine 05/05/22 documented as of this encounter
--- OUTSIDE RECORDS SUMMARY | 2024-12-25 12:56 | XMS_ITS | Clinical Summary ---
Author Organization [facility] Address [address] [place] [address] Care Team Providers Care Wrapper Operator Name Role Phone Ceferino Ross MD Primary [...] H RISK PATIENTS (#1) 2045 Care Teams Wrapper Operator Relationship Specialty Start Date End Date Ceferino Ross MD [address] [place] [address] [id number] PCP - General Internal Medicine 05/05/22
[2024-12-25 15:04] LABS: Alanine Aminotransferase 75 U/L (0-40); Albumin Level 4.8 g/dL (3.5-5.0); Alkaline Phosphatase 72 U/L (39-117); Anion Gap 11 (12-20); Aspartate Amino Transferase 52 U/L (5-37); Bilirubin Total 2.2 mg/dL (0.0-1.0); Blood Urea Nitrogen 7 mg/dL (9-16); Calcium 9.2 mg/dL (8.4-10.2); Carbon Dioxide 27 mmol/L (22-29); Chloride 106 mmol/L (96-108); Estimated Glomerular Filt Rate > 60; Glucose Random 82 mg/dL (60-115); Lipase 36 U/L (8-78); Sodium 140 mmol/L (135-145); Total Protein 7.6 g/dL (6.5-8.0)
== END 2024-12-25 11:37 | disposition home or self-care (01) ==
LOC: HO.HMGCLDS 11:36
PROVIDERS: PCP Internal Medicine; Visit Provider Physician Assistant Medical
DX: Z00.00 Encounter for general adult medical examination without abnormal findings (principal); R10.9 Unspecified abdominal pain
CPT/HCPCS: 36415; 80053; 83690

== ENCOUNTER → 2025-01-23 08:58 | Outpatient (BNVA) | payer BC, SELFPAY | PROVIDERS: PCP Internal Medicine; Visit Provider Physician Assistant Medical ==

== ENCOUNTER 2025-03-05 07:48 | Outpatient (REF) | payer OTHER, SELFPAY ==
--- OUTSIDE RECORDS SUMMARY | 2025-03-05 07:50 | XMS_ITS | Encounter Summary ---
Author Organization [facility] Address [address] [place] [address] Care Team Providers Care Crown Wheel Assembler Name Role Phone Jeri Lam MD Primary Care Provider Unavail able Rudolph Barrett Primary Care Provider Ceferino Ross MD Primary Care Provider Encounter Details Date Type Department Care Team Description 10/19/2018 Release of Information Medical Records [address] [place] [id number] Abstract, Provider Social History Tobacco Use Types [...] on filedocumented in this encounter Care Teams Crown Wheel Assembler Relationship Specialty Start Date End Date Jeri Lam MD PCP - General Internal Medicine 09/04/18 12/07/21 Rudolph Barrett [address] [place] [address] [id number] PCP - General Internal Medicine 12/08/21 05/04/22 Ceferino Ross MD [address] [place] [address] [id number] PCP - General Internal Medicine 05/05/22 documented as of this encounter
--- OUTSIDE RECORDS SUMMARY | 2025-03-05 07:50 | XMS_ITS ---
Author Name [facility] Organization Unknown Problems Problem Status Onset Date Problem Type Date of Resoluti on Source Effusion of joint of left knee active 2023-01-23 ProblemAct [facility] Pain of left knee joint active 2023-01-23 ProblemAct [facility] Encounters Encounter Type Encounter Reason Primary Diagnosis Location Date Ambulatory [facility] [place] 11/01/2023 Ambulatory [facility] [place] 08/21/2023 Ambulatory [facility] [place] 05/02/2023 Ambulatory [facility] [place] 03/28/2023 Ambulatory [facility] [place] 02/21/2023 Ambulatory [facility] [place] 01/23/2023 Ambulatory [facility] [place] 01/23/2023 Ambulatory [facility] [place] 01/23/2023 Ambulatory [facility] [place] 01/23/2023 Ambulatory [facility] [place] 01/23/2023 Ambulatory [facility] [place] 01/23/2023 Ambulatory [facility] [place] 01/23/2023
--- OUTSIDE RECORDS SUMMARY | 2025-03-05 07:50 | XMS_ITS | Patient Health Record ---
Author Organization [facility] Address [address] [facility] [place] [address] Care Team Providers Care Contact Lens Manufacturer Name Role Phone Saul Gardiner MD Primary Care Provider Bryant Samaniego Unavailable [phone] Reason For Referral No Information Medications Medication SIG (Take, Route, Frequency, Duration) Notes Start Date End Date Status Escitalopram Oxalate 5 MG TAKE 1 TABLET BY MOUTH EVERY DAY Oral; Duration: 30 Not-Taking Social History Tobacco Use: Social History Observation Description Date Details (start date - stop date) Never Smoker NA - NA Tobacco Use/Smoking Question Answer Notes Are you a: nonsmoker Additional Findings: Tobacco Non-User Current no n-smoker Alcohol Screen Question Answer Notes Did you have a drink containing alcohol in the p ast year? Yes Points 0 Interpretation Negative Tobacco use other than smoking: Question Answer Notes Are you an other tobacco user? No Plan Of Treatment No Information Insurance Providers Payer Name Payer Address Payer Phone Subscriber Number Group Number Insured Name Patient Relationship to Insured Coverage Start Date Coverage End Date [facility] [address] [place] [address] [phone] [id number] Roman Marina Self - patient is the insured Medical (General) History Medical History History ICD Code Back pain
[2025-03-05 10:11] LABS: MANUAL DIFF FLAG NO
[2025-03-05 10:21] LABS: Hematocrit 44.5 % (42.0-52.0); Hemoglobin 15.9 g/dl (14.0-18.0); Imm Gran Abs Auto 0.04 X10*3/uL (0.00-0.03); Imm Gran Pct Auto 0.5 % (0.0-0.4); Lymphocytes Absolute Auto 1.8 X10*3/uL (1.2-4.9); Mean Corpuscular HGB Conc 35.7 g/dl (31.0-36.0); Mean Corpuscular Hemoglobin 32.1 pg (27.0-33.0); Mean Corpuscular Volume 89.7 fL (80.0-98.0); NRBC Abs Auto 0.000 X10*3/uL (0.0-0.012); NRBC Pct Auto 0.0 /100WBC (0.0-0.2); Platelet Count 205 X10*3/uL (160-400); Red Blood Count 4.96 X10*6/uL (4.60-5.80); White Blood Count 7.8 X10*3/uL (4.8-10.8)
[2025-03-05 10:45] LABS: Alanine Aminotransferase 32 U/L (0-40); Albumin Level 4.9 g/dL (3.5-5.0); Alkaline Phosphatase 51 U/L (39-117); Anion Gap 14 (12-20); Aspartate Amino Transferase 30 U/L (5-37); Blood Urea Nitrogen 17 mg/dL (9-16); Calcium 9.2 mg/dL (8.4-10.2); Carbon Dioxide 24 mmol/L (22-29); Chloride 108 mmol/L (96-108); Cholesterol 225 mg/dL (<200); Estimated Glomerular Filt Rate > 60; HDL Cholesterol 50 mg/dL (>40); Magnesium 2.2 mg/dL (1.6-2.6); Potassium 4.2 mmol/L (3.3-5.1); Sodium 142 mmol/L (135-145); Total Protein 7.7 g/dL (6.5-8.0); Triglycerides 170 mg/dL (<150)
[2025-03-05 10:51] LABS: PSA,Total (Free>4and<10) 0.52 ng/mL (0.00-4.00)
[2025-03-05 11:00] LABS: Folate 8.3 ng/mL (> or = 4.0); Vitamin B12 342 pg/mL (200-900)
[2025-03-05 13:04] LABS: Hemoglobin A1C 101.7773 umol/L; Total Hemoglobin (HGBA1C) 4135.8850 umol/L
== END 2025-03-05 07:49 | disposition home or self-care (01) ==
LOC: HO.HMGCLDS 07:48
PROVIDERS: Visit Provider Physician Assistant Medical
DX: Z00.00 Encounter for general adult medical examination without abnormal findings (principal)
CPT/HCPCS: 36415; 80053; 80061; 82248; 82306; 82607; 82746; 83036; 83735; 84153; 84425; 84443; 84590; 84630; 85025; 85652; 86140

== ENCOUNTER 2025-03-06 10:03 | Outpatient (AMB) | payer OTHER, SELFPAY ==
[2025-03-06 10:14] VITALS: BP 142/96; PULSE 92; RESP 14; TEMP 36.7; O2SAT 98; BMI 30.7
--- NOTE | 2025-03-06 10:14 | A.OFFPC_ITS ---
Vital Signs 03/06/25 10:14 Height 6 ft 1 in Weight 233 lb BMI 30.7 BP 142/96 H Respiration 14 Pulse 92 Pulse Source Pulse Oximeter Temp 98.1 F Temp Source Temporal Artery Scan Pulse Oximetry (%) 98 Oxygen Delivery Method Room Air Intake Visit Reasons: Right side stomach pain Contact Center Analyst Required: No Accompanied by: Self / Same As Patient Allergies No Known Allergies Allergy (Verified 03/06/25 10:56) Medication List - Last Reconciled 03/06/25 by Anette Crowe PA-C cyanocobalamin (vitamin B-12) (Vitamin B-12) 1,000 mcg PO DAILY dicyclomine 20 mg PO BID naltrexone 50 mg PO DAILY 90 days omeprazole 20 mg PO BID thiamine HCl (vitamin B1) 100 mg PO DAILY 90 days Tobacco use date assessed: 03/06/25 Dental Screening Dental Screen Date: 11/27/24 HPI Right side stomach pain HPI Details The patient is a 44-year-old male presenting with persistent abdominal pain. The pain is located in the right upper quadrant, radiating to the right lower quadrant, and eventually spreading throughout the abdomen. He is awaiting referrals to gastroenterology and urology, with appointments scheduled for March 13, 2025, and May 05, 2025, respectively. In November 2024, an abdominal CT scan revealed several well-defined hypodense lesions in the right hepatic lobe, the largest measuring 2.2 cm, and a small cystic lesion in the right kidney. Additionally, hepatosplenomegaly and nonspecific cystic lesions in the right hepatic lobe were noted, without intra- hepatic or extra-hepatic biliary ductal dilation. An abdominal ultrasound confirmed hepatosplenomegaly and multiple hepatic cystic lesions, with no acute processes identified. The patient reports taking omeprazole 20 mg daily, although he does not believe his symptoms are related to acid reflux. He is also taking vitamin B12, vitamin B1, and naltrexone. He denies any black or bloody stools, hematuria, urinary frequency, urgency, dysuria, nausea, vomiting, or fevers. The patient reports experiencing paresthesias in his bilateral hands and feet, which he is unsure are related to his abdominal pain. He does not believe these symptoms are consistent with carpal tunnel syndrome, and a referral to neurology for further evaluation is planned. His blood pressure was noted to be elevated at 142/96 mmHg, although he denies any chest pain or shortness of breath. He does not wish to start antihypertensive medication at this time, attributing the elevated blood pressure to his abdominal pain. Social History - Current nutritional intake: Patient re ports eating his normal diet. [facility] Medical History (Updated 03/06/25 @ 11:01 by Anette Crowe PA-C) Elevated blood pressure reading Paresthesias Hepatosplenomegaly Alcoholic fatty liver History of alcohol abuse Kidney cysts Liver cyst Abdominal pain Establishing care with new doctor, encounter for Occasional tremors Chest wall pain Scleral icterus Dizziness Family History Father No problems noted. Mother No problems noted. Social History Housing: Apartment Alcohol intake: current Alcohol intake frequency: a few times a week Alcohol type: beer Patient Tobacco Use Status: Never used Tobacco service: No Current occupational status: employed Cognitive needs: No Hearing needs: No Vision needs: No Questionnaire PHQ-9 Over the last 2 weeks, how often have you been bothered by any of the following problems? 1. Little interest or pleasure in doing things: not at all 2. Feeling down, depressed, or hopeless: not at all 3. Trouble falling or staying asleep, or sleeping too much: not at all 4. Feeling tired or having little energy: not at all 5. Poor appetite or overeating: not at all 6. Feeling bad about yourself - or that you are a failure or have let yourself or your family down: not at all 7. Trouble concentrating on things, such as reading the newspaper or watching television: not at all 8. Moving or speaking so slowly that other people could have noticed. Or the opposite - being so fidgety or restless that you have been moving around a lot more than usual: not at all 9. Thoughts that you would be better off or of hurting yourself in some way: not at all Total score: 0 Depression Screening Interpretation: Negative Depression Screening Done: Yes 03621 - PHQ-9 Billing: Yes Source: Developed by Drs. Darien Smith, Danisha Mandujano, Willi Cheema and colleagues, with an educational jessica from [employer]. Thrive Questionnaire Date Thrive assessed: 11/27/24 I am a: Patient What is your living situation today?: I have a steady place to live Within the past 12 months, did the food you bought not last and you didn't have the money to get more?: Never true Within the past 12 months, did you worry whether your food would run out before you got money to buy more?: Never true Do you have trouble paying for medicines?: No Do you have trouble getting transportation to medical appointments?: No Do you have trouble paying your heating and electricity bill?: No Do you have trouble taking care of your child, family member or friend?: No Do you have trouble with day-to-day activities such as bathing, preparing meals, shopping, managing finances, etc.?: No Are you currently unemployed and looking for a job?: No Are you interested in more education?: No Please select the resources that you would like help with: None THRIVE Score: 0 AUDIT C Alcohol Use Questionnaire (AUDIT-C) 1. How often do you have a drink containing alcohol?: 2-3 times a week 2. How many drinks containing alcohol do you have on a typical day when you are drinking?: 3 or 4 3. How often do you have six or more drinks on one occasion?: Never Total Score: 4 Score Reviewed/Action Taken: Yes CARIN-7 AMB Questionnaire CARIN-7 Date CARIN - 7 assessed: 12/24/24 Feeling nervous, anxious, or on edge: 0 = Not at all Not being able to stop or control worryin = Not at all Worrying too much about different things: 0 = Not at all Trouble relaxin = Not at all Being so restless that it is hard to sit still: 0 = Not at all Becoming easily annoyed or irritable: 0 = Not at all Feeling afraid as if something awful might happen: 0 = Not at all Total CARIN-7 score (0-4 normal; 5-9 mild; 10-14 moderate; 15-21 severe): 0 Source: Developed by Drs. Darien Smith, Danisha Mandujano, Willi Cheema and colleagues, with an educational jessica from [employer] CARIN-7 Assessment Billing CARIN-7 Assessment Tool: CARIN-7 Assessment 80194 Review of Systems Const Details: - Gastrointestinal: Reports persistent abdominal pain. Denies black or bloody stools, nausea, vomiting. - Genitourinary: Denies hematuria, urinary frequency, urgency, dysuria. - Neurological: Reports paresthesias in bilateral hands and feet. Denies headaches, dizziness. - Constitutional: Denies fevers. - Cardiovascular: Denies chest pain, shortness of breath. Physical exam (Primary Care) Vital Signs: Last Vital Signs Temp 98.1 F 03/06/25 10:14 Pulse 92 03/06/25 10:14 Resp 14 03/06/25 10:14 BP 142/96 H 03/06/25 10:14 Pulse Ox 98 03/06/25 10:14 Oxygen Delivery Method Room Air 03/06/25 10:14 Care Plan Goal for BP management: <140/90 patient will monitor his blood pres sure and call us if it continues to be elevated he would like to await to be started on any medications so his abdominal pain is results it or further worked up BMI result Body Mass Index 30.7 BMI Assessment/Plan discussion: High BMI High, discussed plan: lifestyle, weight reduction, dietary, physical activity and alcohol moderation Tobacco/Smoking Status: Tobacco use Status Tobacco use date assessed 03/06/25 03/06/25 10:16 Patient Tobacco Use Status Never used Tobacco 03/06/25 10:22 PHQ-9: PHQ-9 Score PHQ-9: Total score 0 03/06/25 10:22 Depression Screening Interpretation: Negative Thrive Assessment: Date of Thrive Assessment Date Thrive assessed 11/27/24 03/06/25 10:16 Const Other: Appearance: Alert. Oriented X3. No acute distress. Head: Normal external exam. Normocephalic. Atraumatic. Eyes: Pupils are equal, round, and reactive to light. Extraocular movements intact. Conjunctiva and sclera normal. Eyelids normal. Throat: Pharynx normal. Uvula midline. Moist mucous membranes. Neck: Normal inspection. Neck supple. Full range of motion. Cardiovascular: Normal heart rate and rhythm. Blood pressure elevated at 142/96. Respiratory: No respiratory distress. Painless inspiration. Abdomen: Soft and mild tenderness to the right upper quadrant. Bowel sounds normal in all 4 quadrants. No distention noted. No organomegaly noted. No visible injury noted. However, patient reports persistent abdominal pain in the right upper quadrant, radiating to the right lower quadrant, and spreading to the rest of the abdomen. Back: No costovertebral angle tenderness. Full range of motion noted. Skin: Skin warm and dry. Normal skin color. Normal skin turgor. No rashes/lesions/lacerations noted. Extremities: Extremities exhibit normal range of motion. Extremities nontender. Patient reports paresthesias in bilateral hands and feet. Neuro: Oriented X 3. No motor deficit. No sensory deficit. Reflexes normal. Results Reviewed Results Reviewed: - Imaging: Abdominal CT scan in November 2024 showed hypodense lesions in the right hepatic lobe and a cystic lesion in the right kidney. - Imaging: Abdominal ultrasound confirmed hepatosplenomegaly and multiple hepatic cystic lesions. Coding Level of Care Code Est Pt Level 4 (13366) Complex EM visit Add On G2211 Diagnoses Paresthesias R20.2 Abdominal pain R10.9 Liver cyst K76.89 Kidney cysts N28.1 Hepatosplenomegaly R16.2 Elevated blood pressure reading R03.0 Additional Codes CARIN-7 Assessment Billing - CARIN-7 Assessment Tool: CARIN-7 Assessment 04905 ([id number]) PHQ-9 - 19885 - PHQ-9 Billing: Yes ([id number]) Assessment & Plan Assessment & Plan (1) Paresthesias: Code(s): R20.2 - Paresthesia of skin Category: Medical Plan: The patient reports paresthesias in bilateral hands and feet, which are not believed to be consistent with carpal tunnel syndrome. A neurology referral is planned for further evaluation. (2) Abdominal pain: Code(s): R10.9 - Unspecified abdominal pain Category: Medical Plan: The patient is experiencing persistent abdominal pain, primarily in the right upper quadrant radiating to the right lower quadrant. He is awaiting a gastroenterology referral, which he wishes to expedite. An abdominal ultrasound will be ordered due to ongoing pain since the last ultrasound in November. (3) Liver cyst: Code(s): K76.89 - Other specified diseases of liver Category: Medical Plan: The abdominal CT scan revealed several hypodense lesions in the right hepatic lobe, the largest measuring 2.2 cm. The patient is scheduled for follow-up with gastroenterology to further evaluate these findings. (4) Kidney cysts: Code(s): N28.1 - Cyst of kidney, acquired Category: Medical Plan: A small cystic lesion was noted in the right kidney during the abdominal CT scan. The patient will follow up with urology for further assessment. (5) Hepatosplenomegaly: Code(s): R16.2 - Hepatomegaly with splenomegaly, not elsewhere classified Category: Medical Plan: Hepatosplenomegaly was identified on both the CT scan and ultrasound. Further evaluation will be conducted during the gastroenterology follow-up. (6) Elevated blood pressure reading: Code(s): R03.0 - Elevated blood-pressure reading, without diagnosis of hypertension Category: Medical Plan: The patient's blood pressure was elevated at 142/96 mmHg. He does not wish to start antihypertensive medication, attributing the elevation to abdominal pain. He is advised to monitor his blood pressure and seek emergency care if it remains uncontrolled. Plan Plan Patient was informed and verbally consented to the use of an ambient scribe for clinic note documentation during this visit. 1. Abdominal Pain The patient is experiencing persistent abdominal pain, primarily in the right upper quadrant radiating to the right lower quadrant. He is awaiting a gastroenterology referral, which he wishes to expedite. An abdominal ultrasound will be ordered due to ongoing pain since the last ultrasound in November. 2. Hepatic Cysts The abdominal CT scan revealed several hypodense lesions in the right hepatic lobe, the largest measuring 2.2 cm. The patient is scheduled for follow-up with gastroenterology to further evaluate these findings. 3. Renal Cysts A small cystic lesion was noted in the right kidney during the abdominal CT scan. The patient will follow up with urology for further assessment. 4. Hepatosplenomegaly Hepatosplenomegaly was identified on both the CT scan and ultrasound. Further evaluation will be conducted during the gastroenterology follow-up. 5. Paresthesias The patient reports paresthesias in bilateral hands and feet, which are not believed to be consistent with carpal tunnel syndrome. A neurology referral is planned for further evaluation. 6. Elevated Blood Pressure The patient's blood pressure was elevated at 142/96 mmHg. He does not wish to start antihypertensive medication, attributing the elevation to abdominal pain. He is advised to monitor his blood pressure and seek emergency care if it remains uncontrolled. Orders: Orders US abdomen complete Today R10.9 - Unspecified abdominal pain Referrals Neurology Referral R20.2 - Paresthesia of skin, R25.1 - Tremor, unspecified Medications: New dicyclomine 20 mg PO BID 60 tabs 0RF omeprazole 20 mg PO BID 60 caps 3RF Patient Instructions: - Continue taking omeprazole as prescribed. - Monitor blood pressure regularly and seek emergency care if it remains high. - Attend scheduled follow-up appointments with gastroenterology and urology. - Follow up with neurology for evaluation of paresthesias. - Return to the clinic in two months or sooner if symptoms worsen.
--- OUTSIDE RECORDS SUMMARY | 2025-03-06 10:46 | XMS_ITS | Patient Health Record ---
Author Organization [facility] Address [address] [place] [address] Care Team Providers Care Straightening Roll Operator Name Role Phone Saul Gardiner MD Primary Care Provider Bryant Samaniego Unavailable [phone] Reason For Referral No Information Medications Medication [...] Insured Coverage Start Date Coverage End Date [facility] [address] [place] [phone] [id number] Roman Marina Self - patient is the insured Medical (General) History Medical History History ICD Code Back pain
== END 2025-03-06 10:44 | disposition home or self-care (01) ==
LOC: HO.HMCSH 10:03
PROVIDERS: PCP Internal Medicine; Visit Provider Physician Assistant Medical
DX: R20.2 Paresthesia of skin (principal); R10.9 Unspecified abdominal pain; K76.89 Other specified diseases of liver; N28.1 Cyst of kidney, acquired; R16.2 Hepatomegaly with splenomegaly, not elsewhere classified; R03.0 Elevated blood-pressure reading, without diagnosis of hypertension

== ENCOUNTER → 2025-03-06 10:03 | Outpatient (BNVA) | payer OTHER, SELFPAY | PROVIDERS: PCP Internal Medicine; Visit Provider Physician Assistant Medical | DX: R20.2 Paresthesia of skin (principal); R10.11 Right upper quadrant pain; K76.89 Other specified diseases of liver; N28.1 Cyst of kidney, acquired; R16.2 Hepatomegaly with splenomegaly, not elsewhere classified; R03.0 Elevated blood-pressure reading, without diagnosis of hypertension; Z13.31 Encounter for screening for depression | CPT/HCPCS: 96127 ==

== ENCOUNTER 2025-03-14 08:23 | Outpatient (AMB) | payer OTHER, SELFPAY ==
--- NOTE | 2025-03-14 08:30 | MHC.OFFVIS ---
Intake Visit Reasons: CYST Intake Note: New Patient is present for CYST Urology Rx:none Blood Thinners:none Imaging completed: 11/27/2024 Service Center Manager Required: No Accompanied by: Self / Same As Patient Allergies No Known Allergies Allergy (Verified 03/14/25 08:32) HPI Comments Details: Roman is a very pleasant male. He is a patient of . 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 Mother No problems noted. Social History Housing: Apartment Alcohol intake: current Alcohol intake frequency: a few times a week Alcohol type: beer Patient Tobacco Use Status: Never used Tobacco service: No Current occupational status: employed Cognitive needs: No Hearing needs: No Vision needs: No Review of Systems Const Denies chills and Denies fever(s) Card Reports no additional complaints and Denies syncope Resp Denies cough GI Denies abdominal pain and Denies heartburn Reports as per HPI and Denies change in libido Neuro Denies syncope Psych Denies change in libido Endo Denies change in libido Physical Exam Const General: cooperative, healthy appearing, comfortable and no acute distress Orientation/consciousness: patient oriented x3 HEENT Face and sinus: Yes normal facial exam Mouth: moist mucous membranes Neck Neck: Yes normal visual inspection, Yes full ROM and Yes trachea midline Chest Chest palpation & inspection: normal inspection of the chest Resp Effort & Inspection: normal respiratory effort, able to speak in complete sentences and no respiratory distress GI Inspection: Yes normal to inspection Back/Spine/Pelvis Cervical Spine: normal cervical lordosis Thoracic/Lumbar Spine: thoracic and lumbar spine normal to inspection Skin General skin exam: no rashes or lesions noted Neuro General: patient oriented x3, gait normal, tone normal and moves all extremities Extrem General: Yes normal to inspection and Yes capillary refill normal Assessment & Plan Assessment & Plan (1) Kidney cysts: Code(s): N28.1 - Cyst of kidney, acquired Category: Medical Plan Two month follow-up repeat ultrasound Patient Instructions: This note is constructed using voice recognition software. While every effort has been made to ensure accuracy geodetic technician errors may have been included. Imaging studies, laboratory and physical exam results were discussed and reviewed in detail. No major barriers to patient understanding were identified. An opportunity to ask questions regarding the treatment plan was provided. All questions were answered. The patient expressed understanding and agreement with the above treatment plan. The patient is aware they should contact our office by phone for worsening of their current condition or the appearance of new urologic symptoms. Compliance is encouraged with any medications and followup testing that is ordered. It is a privilege to participate in the urologic care of your patient. If you have any questions or concerns regarding treatment for the above conditions, or other urologic issues, please do not hesitate to contact me. The office telephone contact is [phone]. Sincerely, Dr Xavier Mata MD, [facility] - Urology Compassionate Specialist Care for the Genitourinary System Coding Level of Care Code New Pt Level 3 (55920) Diagnoses Kidney cysts N28.1
--- OUTSIDE RECORDS SUMMARY | 2025-03-14 08:36 | XMS_ITS | Patient Health Record ---
Author Organization [facility] Address [address] [place] [address] Care Team Providers Care Scarfer Name Role Phone Saul Gardiner MD Primary Care Provider Bryant Samaniego Unavailable [phone] Reason For Referral No Information Medications Medication [...] Insured Coverage Start Date Coverage End Date [facility] [address] [place] [phone] [id number] Roman Marina Self - patient is the insured Medical (General) History Medical History History ICD Code Back pain
== END 2025-03-14 09:10 | disposition home or self-care (01) ==
PROVIDERS: PCP Internal Medicine; Visit Provider Urology
DX: N28.1 Cyst of kidney, acquired (principal)
CPT/HCPCS: 99203

== ENCOUNTER → 2025-03-14 08:23 | Outpatient (BNVA) | payer BC, SELFPAY | PROVIDERS: PCP Internal Medicine; Visit Provider Urology | DX: N28.1 Cyst of kidney, acquired (principal) | CPT/HCPCS: 81003 ==

== ENCOUNTER 2025-03-28 15:49 | Outpatient (REF) | payer OTHER, SELFPAY ==
--- NOTE | ~2025-03-28 | US_ITS ---
EXAMINATION: US ABDOMEN COMPLETE CLINICAL INFORMATION: Abdominal pain.. COMPARISON: CT abdomen and pelvis dated same day. TECHNIQUE: Real-time imaging of the abdominal viscera. FINDINGS: PANCREAS: Imaged aspects normal. ABDOMINAL AORTA: The proximal, mid, and distal segments are normal in caliber. INFERIOR VENA CAVA: Visualized portions are normal. LIVER: Liver is mildly enlarged. The right hepatic lobe measures 20.0 cm. The liver contour is normal. There is diffusely increased parenchymal echogenicity. No focal suspicious hepatic lesion. There is a right hepatic lobe cyst measuring 1.9 cm. There is no intrahepatic biliary duct dilatation seen. GALLBLADDER: The gallbladder is physiologically distended without evidence of calculi. There is a small amount of layering sludge. There are no polyps or wall thickening. There is no pericholecystic fluid. Negative sonographic Gilmore's sign. COMMON BILE DUCT: Normal in caliber measuring 0.5 cm in diameter. RIGHT KIDNEY: No hydronephrosis. No renal calculi or suspicious focal parenchymal lesions. The kidney measures 10.6 cm in maximum dimension. There is a mid pole simple cyst measuring 1.0 cm. LEFT KIDNEY: No hydronephrosis. No renal calculi or suspicious focal parenchymal lesions. The kidney measures 11.3 cm in maximum dimension. SPLEEN: The spleen measures 14.1 cm in maximum dimension. FREE FLUID: None. US/US abdomen complete IMPRESSION: 1. Mild fatty infiltration and enlargement of the liver. 2. Gallbladder with mild sludge seen dependently. No calculi. Negative sonographic Gilmore's sign. No wall thickening. 3. Mild splenic enlargement. 4. Right kidney midpole cyst measuring 1.0 cm. Electronically signed by: Moses Montoya MD 03/28/2025 04:41 PM EDT
== END 2025-03-28 15:50 | disposition home or self-care (01) ==
LOC: HO.US 15:49
PROVIDERS: PCP Internal Medicine; Visit Provider Physician Assistant Medical
DX: R10.9 Unspecified abdominal pain (principal)
CPT/HCPCS: 76700

== ENCOUNTER → 2025-03-28 15:53 | Outpatient (BNV) | payer OTHER, SELFPAY | PROVIDERS: PCP Internal Medicine; Visit Provider Radiology Diagnostic Radiology | DX: N28.1 Cyst of kidney, acquired (principal) | CPT/HCPCS: 76700 ==

== ENCOUNTER 2025-05-06 02:00 | Emergency (ER) | payer OTHER, SELFPAY ==
--- NOTE | ~2025-05-06 | XR_ITS ---
CLINICAL HISTORY: cp sob 1 view chest x-ray Comparison: CR/UT/SR - XR CHEST 2 VIEWS - 11/27/24 14:14 EDT Findings: No consolidation or effusion. Heart size is normal. No acute fracture. IMPRESSION: 1. No acute findings. This document has been electronically signed by: Humble Morales MD on 05/06/2025 04:39:10
--- NOTE | ~2025-05-06 | US_ITS ---
EXAMINATION: US ABDOMEN LIMITED HISTORY: epigastric pain, hyperbilirubinemia TECHNIQUE: Real-time grayscale ultrasound imaging of the right upper quadrant was performed and images were reviewed. COMPARISON: Comparison is made with the prior examination dated 03/28/2025. FINDINGS: Liver: The right lobe of the liver measures 17.3 cm in size. The left lobe of the liver measures 11.8 cm in size. The liver demonstrates increased echotexture, consistent with steatosis. No focal mass or intrahepatic biliary ductal dilatation is identified. There is normal hepatopedal flow in the portal vein. Gallbladder and biliary tree: The gallbladder is unremarkable, without evidence of calculi, wall thickening, or pericholecystic fluid. There is no sonographic Gilmore sign. The common bile duct is normal in caliber measuring 2 mm. Right Kidney: The right kidney measures 11.6] cm in length. The right kidney is unremarkable, without evidence of masses, hydronephrosis, or calculi. Pancreas: The pancreatic head, neck, and body are unremarkable. The pancreatic tail is obscured by bowel gas. Abdominal aorta and inferior vena cava: The visualized portions of the abdominal aorta and inferior vena cava are normal in caliber. There is no free fluid in the right upper quadrant. US/US abdomen limited IMPRESSION: Hepatomegaly and hepatic steatosis. Electronically signed by: Darien Solis MD 05/06/2025 08:07 AM EDT
--- NOTE | 2025-05-06 02:02 | ECG_ITS ---
Test Reason : CP/SOB Blood Pressure : */* mmHG Vent. Rate : 86 BPM Atrial Rate : 86 BPM P-R Int : 170 ms QRS Dur : 106 ms QT Int : 396 ms P-R-T Axes : 53 10 7 degrees QTcB Int : 473 ms Normal sinus rhythm Normal ECG When compared with ECG of 27-Nov-2024 11:22, No significant change was found Referred By: Generic ED Physician Electronically Signed By: AARON JUAREZ
[2025-05-06 02:12] VITALS: BP 157/102; PULSE 91; RESP 18; TEMP 36.7; O2SAT 98; BMI 28.7
[2025-05-06 02:38] LABS: Appearance Urine Clear; Glucose Urine UA Negative (Negative); PH 6.5 (5.0-9.0); Specific Gravity - Urine <= 1.005 (1.005-1.025)
[2025-05-06 02:53] LABS: Alanine Aminotransferase 25 U/L (0-40); Albumin Level 4.9 g/dL (3.5-5.0); Alkaline Phosphatase 64 U/L (39-117); Anion Gap 13 (12-20); Aspartate Amino Transferase 47 U/L (5-37); Blood Urea Nitrogen 9 mg/dL (9-16); Calcium 9.2 mg/dL (8.4-10.2); Carbon Dioxide 26 mmol/L (22-29); Chloride 105 mmol/L (96-108); Creatinine Clr Calc Pharmacy 125.7; Estimated Glomerular Filt Rate > 60; Lipase 40 U/L (8-78); Magnesium 2.5 mg/dL (1.6-2.6); Potassium 3.5 mmol/L (3.3-5.1); Sodium 140 mmol/L (135-145); Total Protein 7.7 g/dL (6.5-8.0)
[2025-05-06 02:58] LABS: Cannabinoid Screen Urine Not Detected (Not Detect)
[2025-05-06 02:58] LABS: Troponin-I High Sensitivity < 2.7 ng/L (<3.5-35.0)
[2025-05-06 03:00] LABS: Imm Gran Abs Auto 0.01 X10*3/uL (0.00-0.03); Imm Gran Pct Auto 0.2 % (0.0-0.4); MANUAL DIFF FLAG SCAN; Mean Corpuscular Volume 88.7 fL (80.0-98.0); NRBC Abs Auto 0.000 X10*3/uL (0.0-0.012); NRBC Pct Auto 0.0 /100WBC (0.0-0.2); PLT CLUMP 1; SCAN SMEAR FLAG 1
[2025-05-06 03:01] LABS: COVID-19 Test Negative (Negative); IDNOW Serial# 152EDE1D; IDNOW Serial# 58CA691E; Influenza B2 Negative (Negative)
[2025-05-06 03:02] LABS: Hematocrit 38.5 % (42.0-52.0); Lymphocytes Absolute Auto 1.8 X10*3/uL (1.2-4.9); Red Blood Count 4.34 X10*6/uL (4.60-5.80)
[2025-05-06 03:15] LABS: Hemoglobin 12.9 g/dl (14.0-18.0); White Blood Count 6.3 X10*3/uL (4.8-10.8)
[2025-05-06 03:16] LABS: Mean Corpuscular HGB Conc 33.5 g/dl (31.0-36.0); Mean Corpuscular Hemoglobin 29.7 pg (27.0-33.0); Platelet Count 165 X10*3/uL (160-400)
[2025-05-06 04:00] VITALS: BP 140/88; PULSE 78; RESP 16; TEMP 36.7; O2SAT 98
--- OUTSIDE RECORDS SUMMARY | 2025-05-06 04:24 | XMS_ITS | Patient Health Record ---
Author Organization [facility] Address [address] [place] [address] Care Team Providers Care Orthotics Prosthetics Assistant Name Role Phone Saul Gardiner MD Primary Care Provider Bryant Samaniego Unavailable [phone] Reason For Referral No Information Medications Medication [...] Insured Coverage Start Date Coverage End Date [facility] [address] [place] [phone] [id number] Roman Marina Self - patient is the insured Medical (General) History Medical History History ICD Code Back pain
[2025-05-06 06:00] VITALS: BP 144/86; PULSE 72; RESP 18; TEMP 36.6; O2SAT 97
[2025-05-06] MEDS: Lactated Ringers 1,000 ML 999 ML IV (07:02)
[2025-05-06] MEDS: diazePAM 10 MG/2 ML CARTRIDGE 5 MG IVPUSH (07:02)
[2025-05-06 07:24] LABS: Ammonia 32 umol/L (13-55)
[2025-05-06 07:26] LABS: INTERNATIONAL NORM RATIO 1.1 (0.9-1.1); Prothrombin Time 12.9 SEC (10.9-12.4)
[2025-05-06 08:01] VITALS: BP 145/101; PULSE 76; O2SAT 99
--- NOTE | 2025-05-06 08:11 | MHC.CARE ---
T/W asked ED provider to place consult to [facility] as Pt utilized their services before. Consult placed.
--- NOTE | 2025-05-06 08:14 | ED.GENADULT ---
HPI - General Adult General Chief complaint: ETOH/Substance Use Stated complaint: CHEST TIGHTNESS + ABD PAIN + SOB Time Seen by Provider: 05/06/25 02:47 Source: patient, RN notes reviewed and old records reviewed Mode of arrival: ambulatory Limitations: no limitations History of Present Illness ED Provider: Dr. Marilu Moore HPI narrative: 44-year-old male with history of alcohol use disorder, alcoholic fatty liver disease presenting with poor appetite, epigastric abdominal pain, dyspnea on exertion, generalized fatigue, nausea and vomiting ongoing for the last several weeks. Patient admits that he was sober from alcohol for several months between December and March. In the middle of March, unfortunately he relapsed and has been using alcohol daily since then. Describes at least 6-8 alcoholic drinks per day. Does not have a specific type of alcohol he likes to use. Denies other illicit substance use. Presents requesting help to detox from alcohol. Admits he had previously used naltrexone which seemed to work for him. Otherwise, he denies recent illness including fevers or chills, cough or cold-type symptoms, hematemesis or hematochezia, skin rashes, known sick contacts or travel. Related Data Previous Rx's ?Medication ?Instructions ?Recorded cyanocobalamin (vitamin B-12) 1,000 mcg PO DAILY #90 tabs 12/24/24 1,000 mcg tablet (Vitamin B-12) naltrexone 50 mg tablet 50 mg PO DAILY 90 days #90 tabs 12/24/24 thiamine HCl (vitamin B1) 100 mg 100 mg PO DAILY 90 days #90 caps 12/24/24 capsule dicyclomine 20 mg tablet 20 mg PO BID #60 tabs 03/06/25 omeprazole 20 mg capsule,delayed 20 mg PO BID #60 caps 03/06/25 release Allergies Allergy/AdvReac Type Severity Reaction Status Date / Time No Known Allergies Allergy Verified 05/06/25 02:17 Review of Systems Review of Systems: as per HPI, full review of systems performed and negative but for the above mentioned pertinent positives and negatives. [facility] Past Medical History Medical History Elevated blood pressure reading Paresthesias Hepatosplenomegaly Alcoholic fatty liver History of alcohol abuse Kidney cysts Liver cyst Abdominal pain Establishing care with new doctor, encounter for Occasional tremors Chest wall pain Scleral icterus Dizziness Family History Family History Father No problems noted. Mother No problems noted. Social History Social History Housing: Apartment Alcohol intake: current Alcohol intake frequency: 3 or more drinks per day Alcohol type: beer Patient Tobacco Use Status: Never used Tobacco Smoked in Last 30 Days: No Use of substances other than those prescribed or required for medical reasons: No Advance Directives: No Advance Directives Information Provided: Yes Do you have a plan to hurt others: No Plan service: No Current occupational status: employed Cognitive needs: No Hearing needs: No Vision needs: No Physical Exam ED Exam Exam: GENERAL: Anxious, tremulous. SKIN: Slightly jaundiced, warm, dry, intact, no rashes noted. HEENT: Normocephalic, atraumatic, no stridor, posterior oropharynx nonerythematous, dentition intact, EOMI, scleral icterus, PERRLA. NECK: Soft, supple, full ROM, midline structures nontender, no step-offs, no deformities, no lymphadenopathy. CHEST: Heart regular rhythm, no murmurs, symmetric chest rise and fall, no crepitus. PULMONARY: Clear to auscultation bilaterally, no labored breathing, no wheezes/rhales/ rhonchi. ABDOMINAL: Soft, nondistended, nontender, positive bowel sounds in all quadrants. : Deferred. MUSCULOSKELETAL: Normal tone, full range of motion, no deformities, no peripheral edema. NEURO: Alert and oriented x3, CN II through XII intact, equal strength and sensation bilateral upper and lower extremities, no focal neurologic deficits, no asterixis. PSYCHIATRIC: Anxious affect, fluid speech, good eye contact and appropriate demeanor. Vital Signs: Vital Signs - 24 hr 05/06/25 02:12 05/06/25 04:00 05/06/25 06:00 Temperature 98.1 F 98.0 F 98 F Pulse Rate 91 78 72 Respiratory Rate 18 16 18 Blood Pressure 157/102 H 140/88 H 144/86 H Pulse Oximetry 98 98 97 Oxygen Delivery Method Room Air Room Air Room Air 05/06/25 08:01 Temperature Pulse Rate 76 Respiratory Rate Blood Pressure 145/101 H Pulse Oximetry 99 Oxygen Delivery Method Room Air BMI result Body Mass Index 28.7 Course Reevaluation(s) Reevaluation #1: DR. Rose's progress note: Patient is AAO x3, worsening of LFTs likely secondary to fatty alcoholic liver ultrasound shows no acute upper quadrant pathology except for fatty liver and steatosis, patient wanted to be discharged home, care team input is appreciated and patient is stable to be discharged home. Time: 09:41 Medications Administered Discontinued Medications Generic Name Dose Route Start Last Admin Trade Name Jc PRN Reason Stop Dose Admin Diazepam 5 mg 05/06/25 06:39 05/06/25 07:02 Diazepam 10 Mg/2 Ml Cartridge IVPUSH 05/06/25 06:40 5 mg STAT STA Administration Famotidine 20 mg 05/06/25 06:39 05/06/25 07:02 Famotidine/Pf 20 Mg/2 Ml Vial IVPUSH 05/06/25 06:40 20 mg ONCE ONE Administration Lactated Ringer's 1,000 mls @ 999 mls/hr 05/06/25 06:39 05/06/25 08:27 Lr IV 05/06/25 07:39 Infused .Q1H1M ONE Infusion Medical Decision Making Medical Decision Making MDM Narrative: Patient presents with request for alcohol detox, epigastric abdominal pain. Differential diagnosis includes alcoholic gastritis, peptic ulcer disease, biliary tract obstruction gallbladder dysfunction, gastroenteritis, alcohol intoxication, alcohol withdrawal, substance use disorder, decompensated mental illness including depression and anxiety, among many others. We will initiate medical clearance and recovery team/care team consult. 8:46 AM 05/06/2025 (Dr. Marilu Moore, D.O.) patient awaiting recovery team consultation and final disposition. Signing out to oncoming provider. Differential Diagnosis Differential Diagnoses: The differential diagnosis associated with the presentation includes (As above) Admission/Observation Consideration of admission/observation: Escalation of care including admission/observation considered Consult Healthcare Provider Management of the patient was discussed with: Behavioral Health Provider Lab Data [facility] Lab Attestation statement: I reviewed the patient's lab results. 05/06/25 02:30 05/06/25 02:30 Labs: Lab Results 05/06/25 05/06/25 05/06/25 Range/Units 02:27 02:30 07:10 WBC 6.3 (4.8-10.8) X10*3/uL RBC 4.34 L (4.60-5.80) X10*6/uL Hgb 12.9 L (14.0-18.0) g/dl Hct 38.5 L (42.0-52.0) % MCV 88.7 (80.0-98.0) fL MCH 29.7 (27.0-33.0) pg MCHC 33.5 (31.0-36.0) g/dl RDW 14.1 (11.0-16.0) % Plt Count 165 (160-400) X10*3/uL MPV 8.6 L (9.4-12.4) fL Immature Gran % (Auto) 0.2 (0.0-0.4) % Neut % (Auto) 60.1 (45-73) % Lymph % (Auto) 28.8 (20-40) % [place] % (Auto) 9.7 (2-11) % Eos % (Auto) 0.6 (0-4) % Baso % (Auto) 0.6 (0-2) % Lymph # (Auto) 1.8 (1.2-4.9) X10*3/uL [place] # (Auto) 0.6 (0.1-1.2) X10*3/uL Eos # (Auto) 0.0 (0.0-0.4) X10*3/uL Baso # (Auto) 0.0 (0.0-0.2) X10*3/uL Abs Immat Gran (auto) 0.01 (0.00-0.03) X10*3/uL Absolute Neuts (auto) 3.8 (2.0-8.3) x10*3/uL Absolute Nucleated RBC 0.000 (0.0-0.012) X10*3/uL Nucleated RBC % (auto) 0.0 (0.0-0.2) /100WBC Smear Tech's Comments VERIFIED PT 12.9 H (10.9-12.4) SEC INR 1.1 (0.9-1.1) Sodium 140 (135-145) mmol/L Potassium 3.5 (3.3-5.1) mmol/L Chloride 105 (96-108) mmol/L Carbon Dioxide 26 (22-29) mmol/L Anion Gap 13 (12-20) BUN 9 (9-16) mg/dL Creatinine 0.98 (0.5-1.4) mg/dL Estim Creat Clear Calc 125.7 Estimated GFR > 60 Random Glucose 97 (60-115) mg/dL Calcium 9.2 (8.4-10.2) mg/dL Magnesium 2.5 (1.6-2.6) mg/dL Total Bilirubin 3.7 H (0.0-1.0) mg/dL AST 47 H (5-37) U/L ALT 25 (0-40) U/L Alkaline Phosphatase 64 (39-117) U/L Ammonia 32 (13-55) umol/L Troponin I High Sens < 2.7 (<3.5-35.0) ng/L Total Protein 7.7 (6.5-8.0) g/dL Albumin 4.9 (3.5-5.0) g/dL Lipase 40 (8-78) U/L Urine Color Yellow Urine Appearance Clear Urine pH 6.5 (5.0-9.0) Ur Specific Chap[place] <= 1.005 (1.005-1.025) Urine Protein Negative (Neg-Trace) mg/dL Urine Glucose (UA) Negative (Negative) mg/dL Urine Ketones Negative (Negative) mg/dL Urine Blood Negative (Negative) Urine Nitrite Negative (Negative) Ur Leukocyte Esterase Negative (Negative) Urine RBC 0-2 (0-2) /HPF Urine WBC 0-5 (0-5) /HPF Ur Squamous Epith Cells 0-2 (0-2) /HPF Urine Bacteria None Seen (None Seen) Hyaline Casts 0-2 (0-2) /LPF Urine Opiates Screen Not Detected (Not Detect) Ur Buprenorphine Scrn Not Detected (Not Detect) ng/mL Ur Oxycodone Screen Not Detected (Not Detect) ng/mL Urine Methadone Screen Not Detected (Not Detect) ng/mL Urine Fentanyl Screen Not Detected (Not Detect) Ur Barbiturates Screen Not Detected (Not Detect) Ur Phencyclidine Scrn Not Detected (Not Detect) Ur Amphetamines Screen Not Detected (Not Detect) U Benzodiazepines Scrn Not Detected (Not Detect) Urine Cocaine Screen Not Detected (Not Detect) U Marijuana (THC) Screen Not Detected (Not Detect) Ethyl Alcohol < 10 mg/dL COVID-19 ([place]) Negative (Negative) COVID-19 Clin Com See Note Influenza Type A ([facility]) Negative (Negative) Influenza Type B ([facility]) Negative (Negative) Influenza A & B Note See Note Independent Interpretation I performed an independent interpretation of an: EKG Interpretation: My independent interpretation of the ECG reveals normal sinus rhythm with rate of 86, normal axis, normal intervals, no ST elevations or depressions to suggest ischemic changes, relatively unchanged from previous on 11/27/2024. External Record Review External record reviewed: Inpatient record and Outpatient record Chronic Conditions Patient?s care impacted by: Other (Alcoholic steatosis) Social Determinants Patient?s care significantly limited by Social Determinants of Health including: Problems related to primary support group and Other Social Determinant of Health Discharge Plan Discharge Clinical Impression: Acute alcoholic gastritis, Alcohol withdrawal, Hyperbilirubinemia Patient Disposition: Home, Self-Care Instructions: Gastritis (ED), Alcohol Withdrawal (ED) Prescriptions: No Action cyanocobalamin (vitamin B-12) [Vitamin B-12] 1,000 mcg tablet 1,000 mcg PO DAILY Qty: 90 1RF dicyclomine 20 mg tablet 20 mg PO BID Qty: 60 0RF omeprazole 20 mg capsule,delayed release(DR/EC) 20 mg PO BID Qty: 60 3RF naltrexone 50 mg tablet 50 mg PO DAILY 90 Days Qty: 90 1RF thiamine HCl (vitamin B1) 100 mg capsule 100 mg PO DAILY 90 Days Qty: 90 1RF Referrals: Jose Edmondson MD [Primary Care Provider, Internal Medicine] Print Language: Croatian
[2025-05-06 09:45] VITALS: BP 140/101; PULSE 97; TEMP 36.5; O2SAT 97
[2025-05-06 09:56] VITALS: BP 140/101; PULSE 97; RESP 16; TEMP 36.5; O2SAT 97
== END 2025-05-06 09:59 | disposition home or self-care (01) ==
PROVIDERS: Emergency Provider Emergency Medicine; PCP Internal Medicine
DX: K29.20 Alcoholic gastritis without bleeding (principal); E80.6 Other disorders of bilirubin metabolism; R07.89 Other chest pain; R10.9 Unspecified abdominal pain; R06.02 Shortness of breath; F10.939 Alcohol use, unspecified with withdrawal, unspecified; Y90.9 Presence of alcohol in blood, level not specified; Z79.899 Other long term (current) drug therapy
CPT/HCPCS: 36415; 71045; 76705; 80053; 80307; 81001; 82140; 83690; 83735; 84484; 85025; 85610; 87502; 87635; 93005; 96361; 96374; 96375; 99285; J1308; J3360; J7120; S9485

== ENCOUNTER → 2025-05-06 02:02 | Outpatient (BNV) | payer OTHER, SELFPAY | PROVIDERS: Emergency Provider Emergency Medicine; PCP Internal Medicine; Visit Provider Internal Medicine | DX: R07.89 Other chest pain (principal); R06.02 Shortness of breath | CPT/HCPCS: 93010 ==

== ENCOUNTER → 2025-05-06 02:56 | Outpatient (BNV) | payer OTHER, SELFPAY | PROVIDERS: Emergency Provider Emergency Medicine; PCP Internal Medicine; Visit Provider Radiology Diagnostic Radiology | DX: K76.0 Fatty (change of) liver, not elsewhere classified (principal); R16.0 Hepatomegaly, not elsewhere classified; R07.89 Other chest pain; R06.02 Shortness of breath | CPT/HCPCS: 71045; 76705 ==

== ENCOUNTER 2025-06-12 08:48 | Outpatient (AMB) | payer OTHER, SELFPAY ==
[2025-06-12 09:03] VITALS: BP 126/74; PULSE 84; RESP 14; TEMP 36.4; O2SAT 97; BMI 31.5
--- NOTE | 2025-06-12 09:03 | A.OFFPC_ITS ---
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 Accompanied by: Self / Same As Patient Allergies No Known Allergies Allergy (Verified 06/12/25 09:12) Medication List - Last Reconciled 06/12/25 by Anette Crowe PA-C cyanocobalamin (vitamin B-12) (Vitamin B-12) 1,000 mcg PO DAILY dicyclomine 20 mg PO BID lisinopril 10 mg PO DAILY naltrexone 50 mg PO DAILY 90 days omeprazole 20 mg PO BID thiamine HCl (vitamin B1) 100 mg PO DAILY 90 days Tobacco use date assessed: 03/06/25 Dental Screening Dental Screen Date: 11/27/24 HPI 1 month follow up/Blood Pressure check HPI Details The patient is a 44-year-old male presenting for follow-up for hypertension and new complaints of shortness of breath and chest tightness. His blood pressure was previously high, but is now controlled at 126/74 mmHg without medication, which he attributes to daily exercise. Consequently, lisinopril is being discontinued. The patient reports new onset chest tightness and shortness of breath with exertion, such as walking upstairs, which he describes as a feeling of struggling. He denies experiencing palpitations or skipped heartbeats and has never undergone a stress test. His current medications include vitamin B12 for a previous deficiency, dicyclomidine for stomach issues, naltrexone, omeprazole, and vitamin B1. The patient is a non-smoker who exercises daily, including cardio and weight lifting. Social History - Substance Use: Patient is a non-smoker . - Exercise: He reports going to the gym every day, where he engages in cardio activities such as using the treadmill, bike, and elliptical, as well as lifting weights. - Weight Management: His weight was 239 lbs in September and has since fluctuated around 233 lbs. [facility] Medical History (Updated 06/12/25 @ 10:10 by Anette Crowe PA-C) Medication management Chest tightness DIALLO (dyspnea on exertion) Exercise-induced shortness of breath Shortness of breath Fatigue Elevated blood pressure reading Paresthesias Hepatosplenomegaly Alcoholic fatty liver History of alcohol abuse Kidney cysts Liver cyst Abdominal pain Establishing care with new doctor, encounter for Occasional tremors Chest wall pain Scleral icterus Dizziness Family History Father No problems noted. Mother No problems noted. Social History Housing: Apartment Alcohol intake: current Alcohol intake frequency: 3 or more drinks per day [place] type: beer Patient Tobacco Use Status: Never used Tobacco service: No Current occupational status: employed Cognitive needs: No Hearing needs: No Vision needs: No Questionnaire PHQ-9 Over the last 2 weeks, how often have you been bothered by any of the following problems? 1. Little interest or pleasure in doing things: not at all 2. Feeling down, depressed, or hopeless: not at all 3. Trouble falling or staying asleep, or sleeping too much: not at all 4. Feeling tired or having little energy: not at all 5. Poor appetite or overeating: not at all 6. Feeling bad about yourself - or that you are a failure or have let yourself or your family down: not at all 7. Trouble concentrating on things, such as reading the newspaper or watching television: not at all 8. Moving or speaking so slowly that other people could have noticed. Or the opposite - being so fidgety or restless that you have been moving around a lot more than usual: not at all 9. Thoughts that you would be better off or of hurting yourself in some way: not at all Total score: 0 Depression Screening Interpretation: Negative Depression Screening Done: Yes 67623 - PHQ-9 Billing: Yes Source: Developed by Drs. Darien Smith, Danisha Mandujano, Willi Cheema and colleagues, with an educational jessica from [employer]. Thrive Questionnaire Date Thrive assessed: 11/27/24 I am a: Patient What is your living situation today?: I have a steady place to live Within the past 12 months, did the food you bought not last and you didn't have the money to get more?: Never true Within the past 12 months, did you worry whether your food would run out before you got money to buy more?: Never true Do you have trouble paying for medicines?: No Do you have trouble getting transportation to medical appointments?: No Do you have trouble paying your heating and electricity bill?: No Do you have trouble taking care of your child, family member or friend?: No Do you have trouble with day-to-day activities such as bathing, preparing meals, shopping, managing finances, etc.?: No Are you currently unemployed and looking for a job?: No Are you interested in more education?: No Please select the resources that you would like help with: None THRIVE Score: 0 AUDIT C Alcohol Use Questionnaire (AUDIT-C) 1. How often do you have a drink containing alcohol?: 2-3 times a week 2. How many drinks containing alcohol do you have on a typical day when you are drinking?: 3 or 4 3. How often do you have six or more drinks on one occasion?: Never Total Score: 4 Score Reviewed/Action Taken: Yes CARIN-7 AMB Questionnaire CARIN-7 Date CARIN - 7 assessed: 12/24/24 Feeling nervous, anxious, or on edge: 0 = Not at all Not being able to stop or control worryin = Not at all Worrying too much about different things: 0 = Not at all Trouble relaxin = Not at all Being so restless that it is hard to sit still: 0 = Not at all Becoming easily annoyed or irritable: 0 = Not at all Feeling afraid as if something awful might happen: 0 = Not at all Total CARIN-7 score (0-4 normal; 5-9 mild; 10-14 moderate; 15-21 severe): 0 Source: Developed by Drs. Darien Smith, Danisha Mandujano, Willi Cheema and colleagues, with an educational jessica from [employer]. CARIN-7 Assessment Billing CARIN-7 Assessment Tool: CARIN-7 Assessment 53264 Review of Systems Const Details: - Cardiovascular: Reports chest tightness. - Denies heart racing or skipping a beat. - Respiratory: Reports shortness of breath and feeling like he is struggling upon exertion such as walking upstairs. - Constitutional: Reports fatigue with exertion. - Gastrointestinal: Reports a history of stomach issues for which he takes dicyclomidine. All systems reviewed & are unremarkable except as noted in HPI and below Physical exam (Primary Care) Vital Signs: Last Vital Signs Temp 97.6 F 06/12/25 09:03 Pulse 84 06/12/25 09:03 Resp 14 06/12/25 09:03 BP 126/74 06/12/25 09:03 Pulse Ox 97 06/12/25 09:03 Oxygen Delivery Method Room Air 06/12/25 09:03 Care Plan Goal for BP management: <140/90 at Goal BMI result Body Mass Index 31.5 BMI Assessment/Plan discussion: High BMI High, discussed plan: lifestyle, weight reduction, dietary, physical activity, alcohol moderation and other Tobacco/Smoking Status: Tobacco use Status Tobacco use date assessed 03/06/25 06/12/25 09:10 Patient Tobacco Use Status Never used Tobacco 06/12/25 09:10 PHQ-9: PHQ-9 Score PHQ-9: Total score 0 06/12/25 09:34 Depression Screening Interpretation: Negative Thrive Assessment: Date of Thrive Assessment Date Thrive assessed 11/27/24 06/12/25 09:10 Const Other: Appearance: Alert. Oriented X3. No acute distress. Head: Normal external exam. Normocephalic. Atraumatic. Eyes: Pupils are equal, round, and reactive to light. Extraocular movements intact. Conjunctiva and sclera normal. Eyelids normal. Throat: Pharynx normal. Uvula midline. Moist mucous membranes. Neck: Normal inspection. Neck supple. Full range of motion. Cardiovascular: Normal heart rate and rhythm. Heart sound normal. No murmurs noted. Pulses normal throughout. Respiratory: No respiratory distress. Painless inspiration. Breath sounds normal. No wheezes/rales/rhonchi noted. No accessory muscle usage noted or decreased air movement noted. Back: Full range of motion noted. Skin: Skin warm and dry. Normal skin color. Extremities: Extremities exhibit normal range of motion. Results Reviewed Results Reviewed: - Vitals: Blood pressure 126/74 mmHg Coding Level of Care Code Est Pt Level 4 (60250) Complex EM visit Add On G2211 Diagnoses Shortness of breath R06.02 Chest tightness R07.89 Elevated blood pressure reading R03.0 Medication management Z79.899 Additional Codes CARIN-7 Assessment Billing - CARIN-7 Assessment Tool: CARIN-7 Assessment 50946 ([id number]) PHQ-9 - 12811 - PHQ-9 Billing: Yes ([id number]) Assessment & Plan Assessment & Plan (1) Shortness of breath: Code(s): R06.02 - Shortness of breath Category: Medical Plan: The patient's new onset of exertional dyspnea and chest tightness are concerning for a possible cardiac etiology, particularly considering his history of hypertension, which may have caused subclinical cardiac damage now unmasked by his increased physical activity. To further evaluate, an echocardiogram (ultrasound of the heart) and a stress test will be ordered. A referral to cardiology will be placed if these results are abnormal. The patient was advised to seek immediate medical attention at a hospital for any chest pain that does not resolve. A follow-up is scheduled in three months to review the results. (2) Chest tightness: Code(s): R07.89 - Other chest pain Category: Medical Plan: The patient's new onset of exertional dyspnea and chest tightness are concerning for a possible cardiac etiology, particularly considering his history of hypertension, which may have caused subclinical cardiac damage now unmasked by his increased physical activity. To further evaluate, an echocardiogram (ultrasound of the heart) and a stress test will be ordered. A referral to cardiology will be placed if these results are abnormal. The patient was advised to seek immediate medical attention at a hospital for any chest pain that does not resolve. A follow-up is scheduled in three months to review the results. (3) Elevated blood pressure reading: Code(s): R03.0 - Elevated blood-pressure reading, without diagnosis of hypertension Category: Medical Plan: The patient's blood pressure is now well-controlled at 126/74 mmHg, attributed to lifestyle modifications including daily exercise. Therefore, lisinopril will be discontinued. The patient is advised to continue monitoring his blood pressure and to report any elevations. (4) Medication management: Code(s): Z79.899 - Other terminal make up operator (current) drug therapy Category: Medical Plan: The patient will continue his current regimen of vitamin B12, dicyclomidine, naltrexone, omeprazole, and vitamin B1. Plan Plan Patient was informed and verbally consented to the use of an ambient scribe for clinic note documentation during this visit. 1. Shortness Of Breath And Chest Tightness The patient's new onset of exertional dyspnea and chest tightness are concerning for a possible cardiac etiology, particularly considering his history of hypertension, which may have caused subclinical cardiac damage now unmasked by his increased physical activity. To further evaluate, an echocardiogram (ultrasound of the heart) and a stress test will be ordered. A referral to cardiology will be placed if these results are abnormal. The patient was advised to seek immediate medical attention at a hospital for any chest pain that does not resolve. A follow-up is scheduled in three months to review the results. 2. Hypertension The patient's blood pressure is now well-controlled at 126/74 mmHg, attributed to lifestyle modifications including daily exercise. Therefore, lisinopril will be discontinued. The patient is advised to continue monitoring his blood pressure and to report any elevations. 3. Medication Reconciliation The patient will continue his current regimen of vitamin B12, dicyclomidine, naltrexone, omeprazole, and vitamin B1. I informed the patient that his blood pressure is now well-controlled at 126/74 mmHg, likely due to his daily exercise routine, and we will discontinue lisinopril. I discussed the new symptoms of chest tightness and shortness of breath and explained that while his heart exam today is normal, these symptoms warrant further investigation, especially given his history of high blood pressure which could have caused some minor damage to the heart. I advised we will order an echocardiogram and a stress test. I informed him that the hospital will contact him for scheduling and that he should call our office if he hasn't heard from them within a month. I advised him to go to the hospital if he experiences any chest pain that does not go away. We scheduled a follow-up appointment in three months to discuss the test results. Orders: Orders CA echo transthoracic complete Today R03.0 - Elevated blood-pressure reading, without diagnosis of hypertension, R06.02 - Shortness of breath, R06.09 - Other forms of dyspnea, R53.83 - Other fatigue CA stress test Today R03.0 - Elevated blood-pressure reading, without diagnosis of hypertension, R06.02 - Shortness of breath, R06.09 - Other forms of dyspnea, R07.89 - Other chest pain, R53.83 - Other fatigue NM cardiolite stress test Today R03.0 - Elevated blood-pressure reading, without diagnosis of hypertension, R06.02 - Shortness of breath, R06.09 - Other forms of dyspnea, R07.89 - Other chest pain, R53.83 - Other fatigue Medications: Discontinued lisinopril Discontinued Reason: Change Referral Type 10 mg PO DAILY 30 tabs 0RF Patient Instructions: - We will stop your lisinopril blood pressure medication since your blood pressure is now normal, thanks to your daily exercise. - Please continue to check your blood pressure at home and call us if it becomes high again. - We are ordering an ultrasound of your heart (echocardiogram) and a stress test to figure out the cause of your chest tightness and shortness of breath. - The hospital will call you to schedule these tests. - If you do not hear from them within one month, please call our office. - If you have chest pain that does not go away, go to the hospital right away. - Continue taking your other medications as prescribed: vitamin B12, dicyclomidine, naltrexone, omeprazole, and vitamin B1. - Your follow-up appointment is in three months.
== END 2025-06-12 09:23 | disposition home or self-care (01) ==
LOC: HO.HMCSH 08:48
PROVIDERS: PCP Physician Assistant Medical; Visit Provider Physician Assistant Medical
DX: R06.02 Shortness of breath (principal); R07.89 Other chest pain; R03.0 Elevated blood-pressure reading, without diagnosis of hypertension; Z79.899 Other long term (current) drug therapy

== ENCOUNTER → 2025-06-12 08:48 | Outpatient (BNVA) | payer OTHER, SELFPAY | PROVIDERS: PCP Physician Assistant Medical; Visit Provider Physician Assistant Medical | DX: I10 Essential (primary) hypertension (principal); R06.02 Shortness of breath; R07.89 Other chest pain; R03.0 Elevated blood-pressure reading, without diagnosis of hypertension; Z79.899 Other long term (current) drug therapy | CPT/HCPCS: 96127 ==

== ENCOUNTER 2025-08-05 11:14 | Outpatient (AMB) | payer OTHER, SELFPAY ==
[2025-08-05 11:15] VITALS: BP 136/80; PULSE 90; RESP 14; TEMP 36.7; O2SAT 99; BMI 31.3
--- NOTE | 2025-08-05 11:15 | A.OFFPC_ITS ---
Vital Signs 08/05/25 11:15 Height 6 ft 1 in Weight 237 lb BMI 31.3 BP 136/80 Blood Pressure Location Lt brachial Position Sitting Respiration 14 Pulse 90 Pulse Source Pulse Oximeter Temp 98.1 F Temp Source Temporal Artery Scan Pulse Oximetry (%) 99 Oxygen Delivery Method Room Air Intake Visit Reasons: chest pain and high blood pressure [employer]man Required: No Accompanied by: Self / Same As Patient Allergies No Known Allergies Allergy (Verified 08/08/25 10:02) Medication List - Last Reconciled 08/08/25 by Jose Edmondson MD cyanocobalamin (vitamin B-12) (Vitamin B-12) 1,000 mcg PO DAILY dicyclomine 20 mg PO BID naltrexone 50 mg PO DAILY 90 days omeprazole 20 mg PO BID thiamine HCl (vitamin B1) 100 mg PO DAILY 90 days Tobacco use date assessed: 03/06/25 Dental Screening Dental Screen Date: 11/27/24 HPI HPI Comments History of Present Illness Details History of Present Illness - The patient is a 45-year-old male pres enting for a follow-up visit after experiencing chest pain. - He reports that about a week ago, he e xperienced tightness and pain in his chest, which made it painful to take deep breaths and eventually difficult to take even shallow breaths. - Due to these symptoms, he went to the emergency department at [facility], where an EKG, chest X-ray, and oxygen level measurement were performed, with all results reported as normal. - His blood pressure was noted to be melisa y high upon check-in at the hospital. - The patient's condition has significan tly improved since last week, though he still experiences some soreness, particularly with very deep breaths. - He is currently taking omeprazole once daily and notes that the pain is aggravated when he is eating. - He has a history of alcohol use and wa s previously prescribed naltrexone, but he has not had a drink in several weeks. - The patient acknowledges having anxiet y but has never taken medication for it. 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 Social History - Employment: The patient works in sales . - Substance Use: He reports no alcohol c onsumption for several weeks. - Functional Status: He is back to work and able to perform all his functions. Results - EKG: Normal, per recent emergency depa rtment visit. - Chest X-ray: Normal, per recent emerge ncy department visit. - Oxygen saturation: Normal, per recent emergency department visit. - Vitals: Blood pressure was reported as super high during emergency de partment check-in. [facility] Medical History Medication management Chest tightness DIALLO (dyspnea on exertion) Exercise-induced shortness of breath Shortness of breath Fatigue Elevated blood pressure reading Paresthesias Hepatosplenomegaly Alcoholic fatty liver History of alcohol abuse Kidney cysts Liver cyst Abdominal pain Establishing care with new doctor, encounter for Occasional tremors Chest wall pain Scleral icterus Dizziness Family History Father No problems noted. Mother No problems noted. Social History Housing: Apartment Alcohol intake: current Alcohol intake frequency: 3 or more drinks per day Alcohol type: beer Patient Tobacco Use Status: Never used Tobacco service: No Current occupational status: employed Cognitive needs: No Hearing needs: No Vision needs: No Questionnaire PHQ-9 Over the last 2 weeks, how often have you been bothered by any of the following problems? 1. Little interest or pleasure in doing things: not at all 2. Feeling down, depressed, or hopeless: not at all 3. Trouble falling or staying asleep, or sleeping too much: not at all 4. Feeling tired or having little energy: not at all 5. Poor appetite or overeating: not at all 6. Feeling bad about yourself - or that you are a failure or have let yourself or your family down: not at all 7. Trouble concentrating on things, such as reading the newspaper or watching television: not at all 8. Moving or speaking so slowly that other people could have noticed. Or the opposite - being so fidgety or restless that you have been moving around a lot more than usual: not at all 9. Thoughts that you would be better off or of hurting yourself in some way: not at all Total score: 0 Depression Screening Interpretation: Negative Depression Screening Done: Yes 59662 - PHQ-9 Billing: Yes Source: Developed by Danisha Contreras.W. Delbert, Willi Cheema and colleagues, with an educational jessica from [employer]. Thrive Questionnaire Date Thrive assessed: 11/27/24 I am a: Patient What is your living situation today?: I have a steady place to live Within the past 12 months, did the food you bought not last and you didn't have the money to get more?: Never true Within the past 12 months, did you worry whether your food would run out before you got money to buy more?: Never true Do you have trouble paying for medicines?: No Do you have trouble getting transportation to medical appointments?: No Do you have trouble paying your heating and electricity bill?: No Do you have trouble taking care of your child, family member or friend?: No Do you have trouble with day-to-day activities such as bathing, preparing meals, shopping, managing finances, etc.?: No Are you currently unemployed and looking for a job?: No Are you interested in more education?: No Please select the resources that you would like help with: None THRIVE Score: 0 AUDIT C Alcohol Use Questionnaire (AUDIT-C) 1. How often do you have a drink containing alcohol?: 2-3 times a week 2. How many drinks containing alcohol do you have on a typical day when you are drinking?: 3 or 4 3. How often do you have six or more drinks on one occasion?: Never Total Score: 4 Score Reviewed/Action Taken: Yes CARIN-7 AMB Questionnaire CARIN-7 Date CARIN - 7 assessed: 12/24/24 Feeling nervous, anxious, or on edge: 0 = Not at all Not being able to stop or control worryin = Not at all Worrying too much about different things: 0 = Not at all Trouble relaxin = Not at all Being so restless that it is hard to sit still: 0 = Not at all Becoming easily annoyed or irritable: 0 = Not at all Feeling afraid as if something awful might happen: 0 = Not at all Total CARIN-7 score (0-4 normal; 5-9 mild; 10-14 moderate; 15-21 severe): 0 Source: Developed by Drs. Darien Smith, Danisha Mandujano, Willi Cheema and colleagues, with an educational jessica from [employer]. CARIN-7 Assessment Billing CARIN-7 Assessment Tool: CARIN-7 Assessment 26017 Review of Systems Narrative Review of Systems - Respiratory: Reports residual soreness with very deep inspiration. - Cardiovascular: Reports a recent history of chest tightness and pain, which has now significantly improved. - Gastrointestinal: Reports chest pain is aggravated by eating. - Psychiatric: Reports anxiety. - Constitutional: Reports sleeping Physical exam (Primary Care) Vital Signs: Last Vital Signs Temp 98.1 F 08/05/25 11:15 Pulse 90 08/05/25 11:15 Resp 14 08/05/25 11:15 BP 136/80 08/05/25 11:15 Pulse Ox 99 08/05/25 11:15 Oxygen Delivery Method Room Air 08/05/25 11:15 BMI result Body Mass Index 31.3 Tobacco/Smoking Status: Tobacco use Status Tobacco use date assessed 03/06/25 08/05/25 11:21 Patient Tobacco Use Status Never used Tobacco 08/05/25 11:21 PHQ-9: PHQ-9 Score PHQ-9: Total score 0 08/05/25 11:21 Depression Screening Interpretation: Negative Thrive Assessment: Date of Thrive Assessment Date Thrive assessed 11/27/24 08/05/25 11:21 Narrative Physical Exam General: Appearance normal, both eyes and all related structures Nutritional Appearance: Well nourished Orientation/consciousness: Patient oriented x3 Limitations: No limitations Head: Normal to inspection Neck: Normal visual inspection Chest: Normal palpation of entire chest wall Respiratory: Soreness when taking deep breaths Neurology: Patient oriented x3 Coding Level of Care Code Est Pt Level 4 (08085) Add On Problem Visit Only Diagnoses Chest pain R07.9 Additional Codes CARIN-7 Assessment Billing - CARIN-7 Assessment Tool: CARIN-7 Assessment 62402 ([id number]) PHQ-9 - 12742 - PHQ-9 Billing: Yes ([id number]) Assessment & Plan Assessment & Plan (1) Chest pain: Code(s): R07.9 - Chest pain, unspecified Plan Plan - The current chest pain is assessed to be musculoskeletal in nature, given the recent negative cardiac and pulmonary workup. - To address symptoms that worsen with eating, the patient's omeprazole (Prilosec) will be increased to twice a day, and a refill will be provided. - For management of anxiety, a referral will be sent for the patient to see a mental health therapist. Discussion Notes I had a discussion with the patient regarding his recent episode of chest pain. I conveyed my agreement with his suspicion that the pain is likely muscular, especially since his recent emergency department workup, including an EKG and chest X-ray, was negative. We also discussed the symptom of pain worsening with eating, and I recommended increasing his Prilosec to twice daily to address a possible gastroesophageal component. Furthermore, we addressed his self-reported anxiety, and I recommended counseling; the patient was agreeable, so I will place a referral to a mental health therapist. Patient Instructions - Increase your omeprazole (Prilosec) to twice a day. - A refill for your omeprazole will be sent to your pharmacy. - Your chest pain is likely from a strained muscle and is expected to continue to improve. - We will provide you with a referral to see a counselor for your anxiety.
--- OUTSIDE RECORDS SUMMARY | 2025-08-05 15:14 | XMS_ITS | Patient Health Record ---
Author Organization [facility] Address [address] [place] [address] Care Team Providers Care Manager Flight Name Role Phone Saul Gardiner MD Primary Care Provider Bryant Samaniego Unavailable [phone] Reason For Referral No Information Medications Medication [...] Insured Coverage Start Date Coverage End Date [facility] [address] [facility] [address] [id number] Roman Marina Self - patient is the insured Medical (General) History Medical History History ICD Code Back pain
== END 2025-08-05 11:34 | disposition home or self-care (01) ==
LOC: HO.HMCSH 11:14
PROVIDERS: PCP Physician Assistant Medical; Visit Provider Internal Medicine
DX: R07.9 Chest pain, unspecified (principal)

== ENCOUNTER → 2025-08-05 11:14 | Outpatient (BNVA) | payer OTHER, SELFPAY | PROVIDERS: PCP Physician Assistant Medical; Visit Provider Internal Medicine | DX: R07.89 Other chest pain (principal); Z13.31 Encounter for screening for depression; Z13.39 Encounter for screening examination for other mental health and behavioral disorders | CPT/HCPCS: 96127 ==